=== PATIENT | male | born 1960 | race Caucasian/White ===

== ENCOUNTER 2017-07-14 08:27 | Observation (INO) ==
[2017-07-14] MEDS ORDERED: Ondansetron 4 MG/2 ML VIAL IVP ONE (08:33)
--- NOTE | 2017-07-14 08:34 | Emergency Department Note ---
Disposition Clinical Impression: Gastroenteritis, Atypical chest pain Disposition: Admitted As Inpatient Condition: Fair Referrals: Armin Patterson DO [Primary Care Provider] - Forms: ED Satisfaction Letter Nausea/Vomiting/Diarrhea HPI - General Chief complaint: ED Nausea/Vomiting/Diarrhea Stated complaint: vomiting, chest pain Time Seen by Provider: 07/14/17 08:30 Source: patient, EMS Mode of arrival: EMS Limitations: no limitations Nursing Notes Reviewed: Yes Vital Signs Reviewed: Yes - History of Present Illness HPI Narrative: Patient presents indicating he has been feeling ill for about 5 days. An onset on Tuesday of nausea and vomiting to the point of mainly dry heaving. The police he has had at least 12 episodes of vomiting or dry heaving since discharge from this emergency department yesterday. He relates he is still having abdominal cramping without other localized pain. He has had 3-4 episodes of diarrhea. He states that he has not been passing blood or mucus in emesis or stool and that his stool this chest watery and clear. He has had some left anterior chest pain since yesterday evening that is worse with motion or vomiting. He has a feeling of fevers and chills but has not checked his temperature. He reports some cough and shortness of breath. He denies any ill exposures, concern foodborne illness or recent travel. He is feeling weak and dizzy this morning with persistent nausea and he has been transported back in for reevaluation by EMS. EMS did document an Accu-Chek in the mid 300s and noted that he does have his insulin pump on. They did transport an EKG and 8: 07 AM that demonstrates a sinus rhythm with a rate of 110, axis of -7, MT interval of 158 and a QT/QTc is 318/405. He has poor R-wave progression and inferior Q waves. He has baseline wander without definite ST or T wave changes for ischemia or infarction. This is on my interpretation. The patient was evaluated yesterday with extensive lab work, EKG and CT abdomen. He responded well to fluids and antiemetics and was ambulatory and drinking in the department. A care plan was correlated with the patient and his family. They did desire discharge but with continued symptoms he was unable to stay home. Pt Subjective Complaint: nausea, vomiting, diarrhea, other (Left anterior chest pain) Onset (ago): day(s) (5) Description of Diarrhea: water Associated Abdominal Pain: Yes If pain, Location of pain: diffuse Severity: moderate Quality: cramping Consistency: intermittent Improves with: nothing Worsens with: eating Associated symptoms: Reports: chest pain, cough, fever/chills, loss of appetite , malaise, nausea/vomiting, shortness of breath, weakness. Denies: myalgias, diaphoresis, headaches, rash, dysuria - Related Data Home Medications Medication Instructions Recorded Confirmed Calcitriol [Rocaltrol] 0.5 mcg PO HS 11/25/14 07/14/17 Gabapentin [Gralise] 600 mg PO HS 11/25/14 07/14/17 Loratadine [Claritin] 10 mg PO DAILY 11/25/14 07/14/17 Nitroglycerin [Nitrostat] 0.4 mg SL Q5-6MIN PRN 11/25/14 07/14/17 Ranolazine [Ranexa] 1,000 mg PO BID 11/25/14 07/14/17 Aspirin 81 mg PO DAILY 09/20/15 07/14/17 Carbidopa/Levodopa 25/100 [Sinemet 1 tab PO QID 09/20/15 07/14/17 25/100] Fluticasone Propionate Nasal 50 mcg NS HS 09/20/15 07/14/17 [Flonase] Rosuvastatin [Crestor] 40 mg PO DAILY 09/20/15 07/14/17 Sertraline [Zoloft] 50 mg PO HS 09/20/15 07/14/17 Insulin Glargine,Hum.rec.anlog 0 unit SQ AD PRN 01/22/16 07/14/17 [Lantus Solostar] Metoprolol [Lopressor] 100 mg PO HS 01/22/16 07/14/17 Ondansetron HCl [Zofran] 4 mg PO Q6H PRN 01/22/16 07/14/17 Pantoprazole Sodium [Protonix] 40 mg PO BID 01/22/16 07/14/17 amLODIPine [Norvasc] 5 mg PO DAILY 01/22/16 07/14/17 Ergocalciferol (VITAMIN D2) 400 unit PO DAILY 10/01/16 07/14/17 [Vitamin D] Subcutaneous Insulin Pump [T:Slim] 1 each MC DAILY PRN 10/01/16 07/14/17 Montelukast [Singulair] 10 mg PO DAILY 02/02/17 07/14/17 Insulin LISPRO [HumaLOG] 0 units IJ DAILY PRN 05/10/17 07/14/17 Isosorbide MONOnitrate (24 HR) 30 mg PO DAILY 05/10/17 07/14/17 [Imdur] Levothyroxine Sodium [Levo-T] 200 mcg PO 0630 05/10/17 07/14/17 Lisinopril [Zestril] 40 mg PO BID 05/10/17 07/14/17 Previous Rx's Medication Instructions Recorded Clopidogrel [Plavix] 75 mg PO DAILY #30 tablet 10/02/16 Furosemide [Lasix] 40 mg PO DAILY #6 tab 02/06/17 Dicyclomine [Bentyl] 10 mg PO QID PRN #20 capsule 07/13/17 Ondansetron ODT [Zofran ODT] 4 mg SL Q6HR PRN #20 tab.rapdis 07/13/17 Allergies Allergy/AdvReac Type Severity Reaction Status Date / Time Oxycodone [From Percocet] Allergy Itching/JERI Verified 07/14/17 08:30 H All systems ED: reviewed and negative except as stated. Past Medical History - Past Medical History Attestation: Yes The following information was validated with the patient. Source: patient, old records reviewed, nursing notes reviewed Medical history: Reports: coronary artery disease, diabetes, GERD, hyperlipidemia, hypertension, myocardial infarction, renal disease (Chronic renal failure, no dialysis), thyroid disease, other Surgical history: Reports: angioplasty/stent, cholecystectomy, other (AV shunt) Psychiatric history: Reports: depression - Social History Smoking Status: Never smoker Smokeless Tobacco Status: No Alcohol use: Reports: none Drug use: Reports: none Physical Exam - General Limitations: no limitations General appearance: alert, anxious - Head Head exam: atraumatic, normocephalic, normal inspection - Eye Eye exam: Present: normal appearance, PERRL, EOMI. Absent: scleral icterus, conjunctival injection - ENT ENT exam: normal exam, normal oropharynx, mucous membranes moist - Neck Neck exam: Present: normal inspection, full ROM, trachea midline - Chest Chest inspection: Present: normal inspection, symmetric chest wall rise - Respiratory Respiratory exam: Present: normal lung sounds bilaterally. Absent: respiratory distress, wheezes, prolonged expiratory phase - Cardiovascular Cardiovascular exam: Present: regular rate, normal rhythm, tachycardia, normal heart sounds - Abdominal Exam Abdominal exam: Present: soft, Non-Tender, normal bowel sounds. Absent: tenderness, distention, guarding, rebound, rigidity, pulsatile mass, hernia Abdominal tenderness: Absent: RLQ - Extremities Exam Extremities exam: Present: normal inspection, full ROM, normal capillary refill. Absent: tenderness, pedal edema, calf tenderness - Expanded Lower Extremity Exam Neurovascular/Tendon exam: Present: normal capillary refill. Absent: motor deficit, sensory deficit, tendon deficit Gait: not tested/not observed - Neurological Exam Neurological exam: Present: alert, oriented X3 - Psychiatric Psychiatric exam: Present: normal affect, anxious - Skin Skin exam: Present: warm, dry, intact, normal color. Absent: rash, diaphoresis , pallor Course Course Narrative: 1055: Care is discussed with Dr. Coe. He is agreeable with observation of this patient for continued hydration, antiemetics and repeat troponin. Verbal orders have been obtained for his observation period Vital Signs Temperature 98.6 F 07/14/17 08:31 Pulse Rate 94 07/14/17 08:31 Respiratory Rate 20 07/14/17 08:31 Blood Pressure 166/84 07/14/17 08:31 O2 Sat by Pulse Oximetry 100 07/14/17 08:31 Temperature 98.6 F 07/14/17 08:31 Pulse Rate 93 07/14/17 10:39 Respiratory Rate 16 07/14/17 10:39 Blood Pressure 139/95 07/14/17 10:39 O2 Sat by Pulse Oximetry 99 07/14/17 10:39 Oxygen Delivery Oxygen Delivery Room Air Nausea/Vomiting/Diarrhea - Differential Diagnosis Likely: gastroenteritis, dehydration - Medical Records Medical records reviewed: Yes I reviewed the patient's medical records. CT/CT abd pelvis wo no iv no oral IMPRESSION: 1. No bowel obstruction. 2. No acute infective or inflammatory process. 3. Status post cholecystectomy. D/ / Ted Castillo MD / Ted Castillo MD - Lab Data Lab results reviewed: Yes I reviewed the patient's lab results. Result diagrams: 07/14/17 09:25 Lab Results 03/07/14/17 07/14/17 Range/Units 09:25 09:25 09:41 Sample Site R Brach ABG pH 7.42 (7.32-7.45) pH Units ABG pCO2 22 L (35-45) mmHg ABG pO2 139 H (85-104) mmHg ABG HCO3 14 L (21-27) mEq/L ABG Total CO2 15 L (20-26) mEq/L ABG O2 Saturation 99 H (95-98) % ABG Base Excess -8 L (-2 to 3) mEq/L Javi Test Positive Inspired O2 21.0 (1-15=lpm [id number]=%) Sodium 138 (136-145) mEq/L Potassium 4.8 (3.5-5.1) mEq/L Chloride 107 (98-107) mEq/L Carbon Dioxide 16 L (23-29) mEq/L BUN 64 H (6-20) mg/dL Creatinine 4.79 H (0.70-1.30) mg/dL Est GFR ( Amer) 15 L (> 60) Est GFR (Non-Af Amer) 13 L (> 60) BUN/Creatinine Ratio 13 (6-26) Glucose 273 H (70-105) mg/dL Calculated Osmolality 314 H (280-300) Calcium 9.6 (8.6-10.3) mg/dL Troponin I 0.04 H* (< 0.04) ng/mL Beta-Hydroxybutyric Acd > 2.00 H (0.02-0.27) mmol/L - Radiology Data Radiology results reviewed: Yes I reviewed the patient's radiology results. Single view chest x-ray is performed. This does not demonstrate evidence for infiltrate, effusion, pneumothorax, foreign body or heart failure. The cardiac silhouette is normal. I do not see abnormality to the osseous structures of the chest. This is on my interpretation. Impressions Chest X-Ray 07/14/17 08:38 IMPRESSION: No evidence of acute cardiopulmonary disease. D/ / Ulices Herrera MD / Ulices Herrera MD Interpreting Provider: Ulices Herrera MD - EKG Data EKG attestation: Yes I reviewed and interpreted this EKG. EKG shows normal: sinus rhythm, axis, intervals Q waves: III, aVF T wave inversions noted in: I, aVL QRS morphology: poor R-wave progression When compared to previous EKG there are: no significant changes (07/13/2017) Interpretation: no acute changes, nonspecific ST-T wave changes
[2017-07-14] MEDS ORDERED: 0.9 % Sodium Chloride 1,000 ML IVC SCH ×2 (08:45→12:18)
[2017-07-14 09:45] LABS: ABG Base Excess -8 mEq/L (-2 to 3); ABG HCO3 14 mEq/L (21-27); ABG Oxygen Saturation 99 % (95-98); ABG PCO2 22 mmHg (35-45); ABG PH 7.42 pH Units (7.32-7.45); ABG PO2 139 mmHg (85-104); ABG TCO2 15 mEq/L (20-26)
[2017-07-14 09:49] LABS: Calcium 9.6 mg/dL (8.6-10.3); Potassium 4.8 mEq/L (3.5-5.1)
[2017-07-14 10:21] LABS: Troponin I 0.04 ng/mL (< 0.04)
[2017-07-14] MEDS ORDERED: Insulin Regular, Human 100 UNIT/ML SQ ONE (10:23)
[2017-07-14] MEDS ORDERED: 0.9 % Sodium Chloride 500 ML IVC ONE (10:23)
[2017-07-14] MEDS ORDERED: GI Cocktail 40 ML EACH PO ONE (10:23)
[2017-07-14] MEDS ORDERED: Naloxone 0.4 MG/ML INJ IVP PRN (12:18)
[2017-07-14] MEDS ORDERED: D5% in Water 1,000 ML IVC PRN (12:18)
[2017-07-14] MEDS ORDERED: Nitroglycerin 0.4 MG TAB.SUBL SL PRN (12:18)
[2017-07-14] MEDS ORDERED: *HR* Dextrose 50 % in Water (Syg) 50 ML SYRINGE IVP PRN (12:18)
[2017-07-14] MEDS ORDERED: Dextrose Gel 15 GM PO PRN ×2 (12:18)
[2017-07-14] MEDS ORDERED: Insulin LISPRO 300 UNITS/3 ML VIAL SQ PRN (12:18)
[2017-07-14] MEDS: Insulin LISPRO 300 UNITS/3 ML VIAL SQ SCH ×2 (12:41→18:42)
[2017-07-14] MEDS: Ondansetron ODT 4 MG TAB.RAPDIS SL PRN ×2 (12:43→19:51)
[2017-07-14] MEDS: Carbidopa/Levodopa 25/100 TABLET PO SCH ×2 (14:06→18:42)
[2017-07-14] MEDS ORDERED: Pantoprazole 40 MG VIAL IVP ONE (14:10)
[2017-07-14] MEDS: *HR* Promethazine 25 MG/ML VIAL IVP PRN ×2 (14:28→20:40)
--- NOTE | 2017-07-14 16:59 | Internal Med History&Physical ---
Date of Encounter: 07/14/17 Time of Encounter: 16:20 Assessment and Plan (1) Gastroenteritis Current visit: Yes Status: Acute We will be given IV fluids and antiemetics when necessary. Further workup will be done as needed. (2) Chronic renal disease, stage 5, glomerular filtration rate (GFR) less than or equal to 15 mL/min/1.73 square meter Current visit: No Status: Chronic Will monitor renal indices as needed. (3) Anemia Current visit: No Status: Acute We will order anemia testing in a.m. Qualifiers: Anemia type: other cause Other causes of anemia: other cause, not classified Qualified Code(s): D64.89 - Other specified anemias (4) Hypothyroidism Current visit: No Status: Acute TSH was normal at 1.168 on 03/28/2017. Qualifiers: Hypothyroidism type: acquired Qualified Code(s): E03.9 - Hypothyroidism, unspecified (5) Hyperuricemia Current visit: Yes Status: Acute Uric acid level was 10.7 on 10/11/2016. We will recheck in a.m. Internal Medicine - H&P: HPI Chief complaint: Vomiting and diarrhea Admitted From: Emergency Dept Plans for Post Hospital Care: Home History of present illness: Mr. Hdz is a 57 year old male who returned to the hospital today after an ER visit yesterday complaining he had onset of vomiting and diarrhea on July 10. He was evaluated in emergency room again today and was felt to have acute gastroenteritis. He was admitted to [facility] floor for ongoing care needs. He denies any hematemesis, melena or hematochezia. He reports he has had 6-10 episodes of vomiting and diarrhea daily since the day of onset. He reports his mother had similar symptoms a few days ago but has improved. His GI history is pertinent for cholecystectomy approximately 2016. He denies disorders of his liver or exocrine pancreas otherwise. He has GERD. He reports he had a nuclear medicine gastric emptying study a few years ago and was told it was unremarkable. Past Med Surg Social Fam HX - Past Medical History Medical history: coronary artery disease, diabetes, GERD, hyperlipidemia, hypertension, myocardial infarction, renal disease, thyroid disease, other Psychiatric history: depression - Past Surgical History Surgical History: angioplasty/stent, cholecystectomy, other - Social History Smoking Status: Never smoker Smokeless Tobacco Status: No Alcohol use: none Drug use: none - Family History Mother Living Status: Still Living Hx Family Cardiac Disorders: Yes (htn) Father Living Status: Brother Living Status: Hx Family Neurologic Disorders: Yes (stroke) Internal Medicine - H&P: Meds Calcitriol [Rocaltrol] 0.5 mcg PO HS 11/25/14 [History] Gabapentin [Gralise] 600 mg PO HS 11/25/14 [History] Loratadine [Claritin] 10 mg PO DAILY 11/25/14 [History] Nitroglycerin [Nitrostat] 0.4 mg SL Q5-6MIN PRN 11/25/14 [History] Ranolazine [Ranexa] 1,000 mg PO BID 11/25/14 [History] Aspirin 81 mg PO DAILY 09/20/15 [History] Carbidopa/Levodopa 25/100 [Sinemet 25/100] 1 tab PO QID 09/20/15 [History] Fluticasone Propionate Nasal [Flonase] 50 mcg NS HS 09/20/15 [History] Rosuvastatin [Crestor] 40 mg PO DAILY 09/20/15 [History] Sertraline [Zoloft] 50 mg PO HS 09/20/15 [History] Insulin Glargine,Hum.rec.anlog [Lantus Solostar] 0 unit SQ AD PRN 01/22/16 [ History] Metoprolol [Lopressor] 100 mg PO HS 01/22/16 [History] Ondansetron HCl [Zofran] 4 mg PO Q6H PRN 01/22/16 [History] Pantoprazole Sodium [Protonix] 40 mg PO BID 01/22/16 [History] amLODIPine [Norvasc] 5 mg PO DAILY 01/22/16 [History] Ergocalciferol (VITAMIN D2) [Vitamin D] 400 unit PO DAILY 10/01/16 [History] Subcutaneous Insulin Pump [T:Slim] 1 each MC DAILY PRN 10/01/16 [History] Clopidogrel [Plavix] 75 mg PO DAILY #30 tablet 10/02/16 [Rx] Montelukast [Singulair] 10 mg PO DAILY 02/02/17 [History] Furosemide [Lasix] 40 mg PO DAILY #6 tab 02/06/17 [Rx] Insulin LISPRO [HumaLOG] 0 units IJ DAILY PRN 05/10/17 [History] Isosorbide MONOnitrate (24 HR) [Imdur] 30 mg PO DAILY 05/10/17 [History] Levothyroxine Sodium [Levo-T] 200 mcg PO 0630 05/10/17 [History] Lisinopril [Zestril] 40 mg PO BID 05/10/17 [History] Dicyclomine [Bentyl] 10 mg PO QID PRN #20 capsule 07/13/17 [Rx] Ondansetron ODT [Zofran ODT] 4 mg SL Q6HR PRN #20 tab.rapdis 07/13/17 [Rx] 3 Allergy/AdvReac Type Severity Reaction Status Date / Time Oxycodone [From Percocet] Allergy Itching/JERI Verified 07/14/17 08:30 H All Systems PM: A 10-system review of systems was performed and is negative for pertinent findings except as documented above in the HPI. Review of systems: Gen.: His weight has increased from 126.006 kg November 2013 to present weight of 129.274 kg. Cardiovascular: He has history of hypertension and known ASHD status post [place] 1995 and PTCA with 2 stents in [address] [facility]. He had a nuclear medicine EST which showed EKG and perfusion imaging negative for ischemia. He had an echocardiogram 09/30/2016 which showed LVEF of 55% with moderate LV diastolic dysfunction reported. The E/A ratio was 1.4. There was reported LAE without measurements recorded. There was no significant valvular dysfunction and no evidence of pulmonary hypertension. There was increased left ventricular end diastolic diameter at 6.40 cm. The interventricular septum and posterior wall thickness measurements were 0.9 and 1.0 cm respectively. A limited echocardiogram was done 02/03/2017 without new significant findings. There is no history of DVT or pulmonary embolus. Respiratory: He is a lifelong nonsmoker has no known chronic lung disease. He has OTIS and wears BiPAP at bedtime. GI: As per history of present illness : He has chronic kidney disease stage 5 and had AV fistula recently placed in his left forearm as preparation for dialysis. 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 He denies other kidney bladder prostate disorders Neurologic: He has been diagnosed with Parkinson's disease but denies large distribution strokes or seizures. Endocrine: He was diagnosed with DM 2 in 1986. He has DPN, hypothyroidism, and hyperlipidemia. Hematology/oncology: He denies blood disorders or cancers. He does have anemia. Psychiatric: He has anxiety and depression but denies other mental health issues [place] skeletal: He has DJD and vitamin D deficiency but no known gout or osteoporosis. - Constitutional Vitals: Temp Pulse Resp BP Pulse Ox 97.5 F L 101 18 134/93 97 07/14/17 12:18 07/14/17 12:18 07/14/17 12:18 07/14/17 12:18 07/14/17 12:18 Exam: Gen.: He is a well-developed well-nourished male resting comfortably in bed who appears in no severe distress at present time HEENT: Head is atraumatic and normocephalic. Eyes: EOMI. There is no scleral icterus. Mouth: Mucosa is moist. Neck: Supple and nontender. There is no thyromegaly or adenopathy noted. Heart: Regular without murmurs gallops or ectopics Lungs: No wheezes or crackles are heard. Abdomen: Bowel sounds are diminished. The abdomen is minimally tender to palpation in the epigastric area. No masses or guarding are noted. Extremities: There is no cyanosis edema or clubbing noted. Dorsalis pedis and posttibial pulses are trace palpable bilaterally. His feet are warm to touch. He has an AV fistula in his left forearm. Neurologic: Mental status: He is talkative and a good historian. Cranial nerves : Smile is symmetric. Forehead wrinkles bilaterally. Tongue protrudes midline. EOMI. Motor: There is no pronator drift. Cerebellar: Finger to nose is intact bilaterally. Skin: Warm and dry Internal Med - H&P Results - Labs CBC & Chem 7: 07/14/17 09:25 Labs: Cardiac Enzymes 07/14/17 Range/Units 14:53 Troponin I 0.04 H* (< 0.04) ng/mL
[2017-07-14] MEDS ORDERED: *HR* HYDROcodone/Acet 5/325 mg TABLET PO PRN (18:40)
[2017-07-14] MEDS ORDERED: Morphine Oral CONC 5 MG/0.25 ML ORAL.SYG SL PRN (19:40)
--- NOTE | 2017-07-14 23:08 | Electrocardiograph Report ---
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
[2017-07-15] MEDS: Fluticasone Propionate Nasal 50 MCG/SPRAY BOTTLE NS SCH ×2 (00:01→20:52)
[2017-07-15] MEDS: Gabapentin 300 MG CAPSULE PO SCH ×2 (00:01→20:53)
[2017-07-15] MEDS: Lisinopril 20 MG TABLET PO SCH ×3 (00:02→20:52)
[2017-07-15] MEDS: Ranolazine 500 MG TAB.ER.12H PO SCH ×3 (00:02→20:52)
[2017-07-15] MEDS: Carbidopa/Levodopa 25/100 TABLET PO SCH ×5 (00:02→20:52)
[2017-07-15] MEDS: *HR* Promethazine 25 MG/ML VIAL IVP PRN ×3 (01:04→17:11)
[2017-07-15] MEDS: Insulin LISPRO 300 UNITS/3 ML VIAL SQ SCH ×3 (07:56→17:12)
[2017-07-15 08:04] LABS: Calcium 8.8 mg/dL (8.6-10.3); Uric Acid 12.4 mg/dL (2.3-7.6)
[2017-07-15 08:58] LABS: Basophils % 0.4 %; Eosinophils # 0.2 K/mcL (0.0-0.6); Eosinophils % 3.5 %; Hematocrit 38.5 % (37.5-50.1); Hemoglobin 12.3 g/dL (12.9-16.9); Immature Granulocytes % 1.3 % (0-4); Lymphocytes # 2.6 K/mcL (0.6-4.6); Lymphocytes % 38.1 %; Mean Corpuscular HGB Conc 31.9 g/dL (31.6-35.5); Mean Corpuscular Volume 90.8 fL (83.0-100.0); Mean Platelet Volume 10.2 fL (9.4-12.4); Monocytes # 0.6 K/mcL (0.0-1.3); Monocytes % 7.9 %; Neutrophils # 3.4 K/mcL (1.6-8.9); Platelet Count 255 K/mcL (140-400); Red Blood Count 4.24 M/mcL (4.19-5.50); Red Cell Distribution Width 14.6 % (11.5-14.5); Segmented Neutrophils % 48.8 %
[2017-07-15] MEDS ORDERED: Loratadine 10 MG TABLET PO SCH (09:00)
[2017-07-15 09:28] LABS: Folate 11.3 ng/mL (3.0-16.0)
--- NOTE | 2017-07-15 10:00 | Internal Med Progress Note ---
Date of Encounter: 07/15/17 Time of Encounter: 09:50 - Assessment and plan (1) Gastroenteritis Current Visit: Yes Status: Acute Assessment and plan: July 15. Improving. Continue present regimen. Anticipate discharge home tomorrow if stable. (2) Chronic renal disease, stage 5, glomerular filtration rate (GFR) less than or equal to 15 mL/min/1.73 square meter Current Visit: No Status: Chronic Assessment and plan: July 15. Renal indices slightly improved. Continue present regimen. (3) Anemia Current Visit: No Status: Acute Assessment and plan: July 15. Anemia testing results reviewed. No factor deficiency noted. Suspect secondary to chronic kidney disease. Qualifiers: Anemia type: other cause Other causes of anemia: other cause, not classified Qualified Code(s): D64.89 - Other specified anemias (4) Hypothyroidism Current Visit: No Status: Acute Assessment and plan: July 15. Continue Synthroid Qualifiers: Hypothyroidism type: acquired Qualified Code(s): E03.9 - Hypothyroidism, unspecified (5) Hyperuricemia Current Visit: Yes Status: Acute Assessment and plan: July 15. Uric acid level significantly elevated at 12.4. We will start low- dose allopurinol - Subjective Interval history: July 15. He has no new complaints and feels better. He reports his vomiting and diarrhea have lessened - Constitutional Vitals: Temp Pulse Resp BP Pulse Ox 98.1 F 104 20 146/79 99 07/15/17 06:58 07/15/17 06:58 07/15/17 06:58 07/15/17 06:58 07/15/17 06:58 Exam: He is resting comfortably in bed and appears in no acute distress. His affect is bright and cheerful. I reviewed his medications and lab results. Internal Medicine: Result - Labs CBC & Chem 7: 07/15/17 07:00 07/15/17 07:00 Labs: Short CBC 07/15/17 Range/Units 07:00 WBC 6.9 (4.3-11.1) K/mcL Hgb 12.3 L (12.9-16.9) g/dL Hct 38.5 (37.5-50.1) % Plt Count 255 (140-400) K/mcL Neutrophils # 3.4 (1.6-8.9) K/mcL BMP 07/15/17 07:00 Sodium 139 Potassium 4.0 Chloride 108 H Carbon Dioxide 18 L BUN 55 H Creatinine 4.37 H Glucose 112 H Calcium 8.8 Cardiac Enzymes 07/14/17 Range/Units 14:53 Troponin I 0.04 H* (< 0.04) ng/mL - ABG Interpretation ABG results: ABG ABG pH 7.42 pH Units (7.32-7.45) 07/14/17 09:41 ABG pCO2 22 mmHg (35-45) L 07/14/17 09:41 ABG pO2 139 mmHg (85-104) H 07/14/17 09:41 ABG O2 Saturation 99 % (95-98) H 07/14/17 09:41 Consult Discharge Plan - Plan Referrals: Armin Patterson DO [Primary Care Provider] - 1 week
[2017-07-15] MEDS: amLODIPine 5 MG TABLET PO SCH (10:29)
[2017-07-15] MEDS: Isosorbide MONOnitrate (24 HR) 30 MG TAB.ER.24H PO SCH (10:29)
[2017-07-15] MEDS: Aspirin 81 MG TAB.CHEW PO SCH (10:30)
[2017-07-15] MEDS: Furosemide 40 MG TABLET PO SCH (10:30)
[2017-07-15] MEDS ORDERED: Acetaminophen 325 MG TABLET PO PRN (17:41)
[2017-07-15] MEDS: Ondansetron ODT 4 MG TAB.RAPDIS SL PRN (23:40)
[2017-07-16] MEDS: Ondansetron ODT 4 MG TAB.RAPDIS SL PRN ×2 (05:43→14:01)
[2017-07-16 05:49] LABS: Calcium 8.3 mg/dL (8.6-10.3); Potassium 4.1 mEq/L (3.5-5.1)
[2017-07-16] MEDS: Insulin LISPRO 300 UNITS/3 ML VIAL SQ SCH ×2 (07:50→12:04)
[2017-07-16] MEDS: Aspirin 81 MG TAB.CHEW PO SCH (08:59)
[2017-07-16 10:36] VITALS: BP 158/79
[2017-07-16] MEDS: Carbidopa/Levodopa 25/100 TABLET PO SCH ×2 (11:03→13:57)
[2017-07-16] MEDS: Ranolazine 500 MG TAB.ER.12H PO SCH (11:07)
[2017-07-16] MEDS: Isosorbide MONOnitrate (24 HR) 30 MG TAB.ER.24H PO SCH (11:08)
[2017-07-16] MEDS: Lisinopril 20 MG TABLET PO SCH (11:09)
[2017-07-16] MEDS: amLODIPine 5 MG TABLET PO SCH (11:09)
[2017-07-16] MEDS: Furosemide 40 MG TABLET PO SCH (11:09)
--- NOTE | 2017-07-16 14:09 | Discharge Summary ---
Date of Encounter: 07/16/17 Time of Encounter: 13:55 - Discharge Diagnosis (1) Gastroenteritis Priority: Primary Status: Acute (2) Chronic renal disease, stage 5, glomerular filtration rate (GFR) less than or equal to 15 mL/min/1.73 square meter Priority: Secondary Status: Chronic (3) Anemia Priority: Secondary Status: Acute Qualifiers: Anemia type: other cause Other causes of anemia: other cause, not classified Qualified Code(s): D64.89 - Other specified anemias (4) Hypothyroidism Priority: Secondary Status: Chronic Qualifiers: Hypothyroidism type: acquired Qualified Code(s): E03.9 - Hypothyroidism, unspecified (5) Hyperuricemia Priority: Secondary Status: Chronic Hospital course: Mr. Hdz is a 57 year old male who returned to the hospital after an ER visit 07/13/2017 complaining he had onset of vomiting and diarrhea on July 10. He was evaluated in emergency room again today and was felt to have acute gastroenteritis. He was admitted to [facility] floor for ongoing care needs. Initial orders were written by the emergency room physician. I saw him on July 14 and performed a history and physical. He was given IV fluids and antiemetics when necessary. He had gradual lessening of his vomiting and diarrhea. He was able to tolerate satisfactory quantity of oral food and fluid. He will continue to advance diet as tolerated home. IV fluids were given and creatinine improved slightly to 4.43 by day of discharge with estimated GFR 14. He will follow with his home service technician for ongoing care needs. Uric acid level returned significantly elevated at 12.4. He was started on allopurinol 100 mg daily. His PCP can monitor this. On July 16 he felt stable for discharge home. He will follow with his PCP Dr. Patterson within 1 week. - Time Spent with Patient Total time spent providing and/or coordinating discharge services: - Discharge Medications Prescriptions: Allopurinol [Zyloprim 100 MG] 100 mg PO DAILY #30 tablet Home Medications: Calcitriol [Rocaltrol] 0.5 mcg PO HS 11/25/14 [History] Gabapentin [Gralise] 600 mg PO HS 11/25/14 [History] Loratadine [Claritin] 10 mg PO DAILY 11/25/14 [History] Nitroglycerin [Nitrostat] 0.4 mg SL Q5-6MIN PRN 11/25/14 [History] Ranolazine [Ranexa] 1,000 mg PO BID 11/25/14 [History] Aspirin 81 mg PO DAILY 09/20/15 [History] Carbidopa/Levodopa 25/100 [Sinemet 25/100] 1 tab PO QID 09/20/15 [History] Fluticasone Propionate Nasal [Flonase] 50 mcg NS HS 09/20/15 [History] Rosuvastatin [Crestor] 40 mg PO DAILY 09/20/15 [History] Sertraline [Zoloft] 50 mg PO HS 09/20/15 [History] Insulin Glargine,Hum.rec.anlog [Lantus Solostar] 0 unit SQ AD PRN 01/22/16 [ History] Metoprolol [Lopressor] 100 mg PO HS 01/22/16 [History] Ondansetron HCl [Zofran] 4 mg PO Q6H PRN 01/22/16 [History] Pantoprazole Sodium [Protonix] 40 mg PO BID 01/22/16 [History] amLODIPine [Norvasc] 5 mg PO DAILY 01/22/16 [History] Ergocalciferol (VITAMIN D2) [Vitamin D] 400 unit PO DAILY 10/01/16 [History] Subcutaneous Insulin Pump [T:Slim] 1 each MC DAILY PRN 10/01/16 [History] Clopidogrel [Plavix] 75 mg PO DAILY #30 tablet 10/02/16 [Rx] Montelukast [Singulair] 10 mg PO DAILY 02/02/17 [History] Furosemide [Lasix] 40 mg PO DAILY #6 tab 02/06/17 [Rx] Insulin LISPRO [HumaLOG] 0 units IJ DAILY PRN 05/10/17 [History] Isosorbide MONOnitrate (24 HR) [Imdur] 30 mg PO DAILY 05/10/17 [History] Levothyroxine Sodium [Levo-T] 200 mcg PO 0630 05/10/17 [History] Lisinopril [Zestril] 40 mg PO BID 05/10/17 [History] Dicyclomine [Bentyl] 10 mg PO QID PRN #20 capsule 07/13/17 [Rx] Ondansetron ODT [Zofran ODT] 4 mg SL Q6HR PRN #20 tab.rapdis 07/13/17 [Rx] Allopurinol [Zyloprim 100 MG] 100 mg PO DAILY #30 tablet 07/16/17 [Rx] Allergies/Adverse Reactions: 3 Allergy/AdvReac Type Severity Reaction Status Date / Time Oxycodone [From Percocet] Allergy Itching/JERI Verified 07/14/17 08:30 H Date of admission: 07/14/17 11:27 Primary care physician: Armin Patterson DO Consults: 07/14/17 12:32 Consult to Nutrition [CONS] Routine Comment: Consulting Provider: NUTRITION Reason for Dietary Consult: MST Score - Constitutional Vitals: Temp Pulse Resp BP Pulse Ox 98.2 F 66 18 158/79 97 07/16/17 10:36 07/16/17 10:36 07/16/17 10:36 07/16/17 10:36 07/16/17 10:36 - Patient Status Disposition: Home, Self-Care Condition: Fair Overall status at discharge: patient is progressing back to baseline - Discharge Instructions Follow Up With: Armin Patterson DO [Primary Care Provider] - 1 week - Diet and Activity Activity: resume usual activities as tolerated Diet: advance to your usual diet - VTE Documentation of Mechanical Device: Graduated compression elastic hosiery
== END 2017-07-16 15:24 | disposition home or self-care (01) ==
LOC: INPPIK 08:27 → EMEROOPIK 08:27 → INPPIK 11:43
PROVIDERS: ADMIT Internal Medicine; ATTEND Internal Medicine

== ENCOUNTER 2018-01-06 14:14 | Observation (INO) ==
--- NOTE | 2018-01-06 14:55 | Emergency Department Note ---
Disposition Clinical Impression: Acute renal failure Qualifiers: Acute renal failure type: unspecified Qualified Code(s): N17.9 - Acute kidney failure, unspecified Disposition: Admitted As Inpatient Condition: Undetermined Time of Disposition: 16:29 (Dr Mcdaniels accepted him) General Adult HPI - General Chief complaint: ED Abdominal Pain Stated complaint: N/V abdominal pain Source: EMS Limitations: no limitations Nursing Notes Reviewed: Yes Vital Signs Reviewed: Yes - History of Present Illness HPI Narrative: Patient is a pleasant 57-year-old male with past medical history significant for HTN, DM, Dyslipidemia and COPD who is presenting to [facility] with a chief complaint off worsening of his renal function. He complains of generalized fatigue and malaise and vague abdominal pain. He was seen yesterday for the same symptoms but today nursing staff and his reports worsening of his symptoms. He seems to be more lethargic. He has a fistula supposed to start renal dialysis. Patient complains off generalized abdominal pain as well as nausea. A CT scan yesterday was negative. His creatinine yesterday was 5.7 and today is 5.4. Patient denies any fever, chills or night sweats. Pt also denies any eye pain or visual disturbances. There is no sore throat, nasal drainages or facial congestion. There is no chest pain, palpitations or racing heart. Pt also denies any shortness of breath, cough or chest congestion. There is no vomiting or diarrhea. There is no urgency, frequency or dysuria. There is no muskulo-skeletal pain, arthralgia or back pain. Patient also denies any rash, edema or pruritus. There is no neurological manifestations, no headache, no vertigo. The patient also denies any anxiety, depression, hallucinations and has no homicidal or suicidal ideations. There is no polyuria, polydipsia or recent weight change. There is no easy bruising or bleeding. Review of other systems is otherwise negative except above. Location: abdomen Radiation: non-radiation Pain Severity: moderate Pain Scale: 8 - Related Data Home Medications Medication Instructions Recorded Confirmed Ranolazine [Ranexa] 1,000 mg PO BID 11/25/14 01/05/18 Aspirin 81 mg PO DAILY 09/20/15 01/05/18 Carbidopa/Levodopa 25/100 [Sinemet 1 tab PO QID 09/20/15 01/05/18 25/100] Fluticasone Propionate Nasal 50 mcg NS HS 09/20/15 01/05/18 [Flonase] Rosuvastatin [Crestor] 40 mg PO DAILY 09/20/15 01/05/18 Sertraline [Zoloft] 50 mg PO HS 09/20/15 01/05/18 Metoprolol [Lopressor] 100 mg PO BID 01/22/16 01/05/18 Subcutaneous Insulin Pump [T:Slim] 1 each MC DAILY PRN 10/01/16 01/05/18 Montelukast [Singulair] 10 mg PO DAILY 02/02/17 01/05/18 Isosorbide MONOnitrate (24 HR) 30 mg PO DAILY 05/10/17 01/05/18 [Imdur] Levothyroxine Sodium [Levo-T] [place] [address]/10/17 01/05/18 Calcitriol 0.5 mcg PO DAILY 11/24/17 01/05/18 Cholecalciferol (D-3) [Vitamin D] 2,000 unit PO DAILY 11/24/17 01/05/18 Gabapentin [Neurontin] 600 mg PO HS 11/24/17 01/05/18 Loratadine [Allergy Relief] 10 mg PO DAILY 11/24/17 01/05/18 Nitroglycerin [Nitrostat] 0.4 mg SL Q5MIN PRN MDD [id number] 11/24/17 01/05/18 CALL 911 Insulin Glargine,Hum.rec.anlog 50 unit SQ AD PRN 11/25/17 01/05/18 [Lantus Solostar] Ondansetron ODT [Zofran ODT] 8 mg SL Q6HR PRN 11/25/17 01/05/18 Previous Rx's Medication Instructions Recorded Clopidogrel [Plavix] 75 mg PO DAILY #30 tablet 10/02/16 Lisinopril [Zestril] 40 mg PO DAILY #30 tablet 11/27/17 amLODIPine [Norvasc] 10 mg PO DAILY #60 tablet 11/27/17 Ondansetron ODT [Zofran ODT] 4 mg SL Q6HR PRN #8 tab.rapdis 01/05/18 Promethazine [Phenergan] 25 mg PO Q6HR PRN #16 tablet 01/05/18 Allergies Allergy/AdvReac Type Severity Reaction Status Date / Time Oxycodone [From Percocet] Allergy Itching/JERI Verified 07/14/17 08:30 H All systems ED: reviewed and negative except as stated. Review of Systems: As Per HPI Constitutional: Reports: weakness. Denies: fever, chills, weight change Eyes: Denies: eye pain, eye discharge ENT ED: Denies: ear pain, throat pain Cardiovascular: Denies: chest pain, palpitations Respiratory: Denies: cough, dyspnea Gastrointestinal: Reports: abdominal pain, nausea. Denies: vomiting, diarrhea Past Medical History - Past Medical History Medical history: Reports: coronary artery disease, diabetes, GERD, hyperlipidemia, hypertension, myocardial infarction, renal disease, thyroid disease, other Surgical history: Reports: angioplasty/stent, cholecystectomy, other Psychiatric history: Reports: depression - Social History Smoking Status: Never smoker Smokeless Tobacco Status: No Alcohol use: Reports: none Drug use: Reports: none Physical Exam - General Limitations: no limitations General appearance: alert, lethargic - Head Head exam: atraumatic, normocephalic, normal inspection - Eye Eye exam: Present: normal appearance, PERRL, EOMI - Expanded Eye Exam Pupils: Left: reactive - ENT ENT exam: normal exam, normal oropharynx, mucous membranes moist - Expanded ENT Exam External ear exam: Present: normal external inspection Mouth exam: Present: normal external inspection Teeth exam: Present: normal inspection Throat exam: Present: normal inspection - Neck Neck exam: Present: normal inspection, full ROM, trachea midline - Chest Chest inspection: Present: normal inspection, symmetric chest wall rise - Respiratory Respiratory exam: Present: normal lung sounds bilaterally - Cardiovascular Cardiovascular exam: Present: regular rate, normal rhythm, normal heart sounds - Abdominal Exam Abdominal exam: Present: soft, Non-Tender. Absent: tenderness, distention, guarding, rebound, rigidity - Extremities Exam Extremities exam: Present: normal inspection, full ROM. Absent: tenderness, pedal edema - Expanded Upper Extremity Exam Shoulder exam: Present: normal inspection, full ROM Arm exam: Present: normal inspection, full ROM Elbow exam: Present: normal inspection, full ROM Forearm/Wrist exam: Present: normal inspection, full ROM Hand exam: Present: normal inspection, full ROM Vascular exam: Normal: capillary refill, radial pulse - Expanded Lower Extremity Exam Hip/Pelvis exam: Present: normal inspection, full ROM Upper leg exam: Present: normal inspection, full ROM Knee exam: Present: normal inspection, full ROM Lower leg exam: Present: normal inspection, full ROM Ankle exam: Present: normal inspection, full ROM Foot/toe exam: Present: normal inspection, full ROM Neurovascular/Tendon exam: Absent: motor deficit, sensory deficit, tendon deficit - Back Exam Back exam: Present: normal inspection, full ROM. Absent: tenderness - Neurological Exam Neurological exam: Present: alert, oriented X3 - Expanded Neurological Exam Patient oriented to: Present: person, place, time Coma Scale Eye Opening: Spontaneous Coma Scale Motor Response: Obeys Commands Coma Scale Verbal Response: Oriented Coma Scale Total: 15 - Psychiatric Psychiatric exam: Present: normal affect, normal mood - Skin Skin exam: Present: warm, dry, intact, normal color Course Vital Signs Temperature 98.4 F 01/06/18 14:17 Pulse Rate 80 01/06/18 14:17 Respiratory Rate 18 01/06/18 14:17 Blood Pressure 141/86 01/06/18 14:17 O2 Sat by Pulse Oximetry 98 01/06/18 14:17 Temperature 98.2 F 01/06/18 15:31 Pulse Rate 79 01/06/18 16:47 Respiratory Rate 18 01/06/18 16:47 Blood Pressure 152/82 01/06/18 16:47 O2 Sat by Pulse Oximetry 96 01/06/18 16:47 Oxygen Delivery Oxygen Delivery Room Air Medical Decision Making - Medical Records Medical records reviewed: Yes I reviewed the patient's medical records. - Lab Data Lab results reviewed: Yes I reviewed the patient's lab results. Result diagrams: 01/06/18 15:27 01/06/18 15:27 Lab Results 01/06/18 01/06/18 01/06/18 Range/Units 15:25 15:27 15:27 WBC 8.4 (4.3-11.1) K/mcL RBC 4.12 L (4.19-5.50) M/mcL Hgb 11.4 L (12.9-16.9) g/dL Hct 35.5 L (37.5-50.1) % MCV 86.2 (83.0-100.0) fL MCH 27.7 L (28.0-33.3) pg MCHC 32.1 (31.6-35.5) g/dL RDW 13.9 (11.5-14.5) % Plt Count 375 (140-400) K/mcL MPV 9.0 L (9.4-12.4) fL Immature Gran % 1.4 (0-4) % Seg Neutrophils % 68.2 % Lymphocytes % 19.6 % Monocytes % 8.5 % Eosinophils % 1.9 % Basophils % 0.4 % Neutrophils # 5.7 (1.6-8.9) K/mcL Lymphocytes # 1.6 (0.6-4.6) K/mcL Monocytes # 0.7 (0.0-1.3) K/mcL Eosinophils # 0.2 (0.0-0.6) K/mcL Basophils # 0.0 (0.0-0.2) K/mcL APTT 32.9 (26.0-36.0) Seconds Sodium (136-145) mEq/L Potassium (3.5-5.1) mEq/L Chloride (98-107) mEq/L Carbon Dioxide (23-29) mEq/L BUN (6-20) mg/dL Creatinine (0.70-1.30) mg/dL Est GFR ( Amer) (> 60) Est GFR (Non-Af Amer) (> 60) BUN/Creatinine Ratio (6-26) Glucose (70-105) mg/dL Calculated Osmolality (280-300) Calcium (8.6-10.3) mg/dL Total Bilirubin (0.3-1.0) mg/dL Direct Bilirubin (0.0-0.2) mg/dL Indirect Bilirubin (0.0-1.2) mg/dL AST (13-39) Units/L ALT (7-52) Units/L Alkaline Phosphatase (34-104) Units/L Serum Total Protein (6.4-8.9) g/dL Albumin (3.5-5.7) g/dL Globulin (2.4-3.5) g/dL Albumin/Globulin Ratio (1.1-2.2) Lipase (11-82) Units/L Urine Color Yellow (Yellow) Urine Clarity Clear (Clear) Urine pH 5.5 (5.0-8.0) pH Units Ur Specific [place] 1.020 (1.010-1.025) Urine Protein >=300 H (Neg-Trace) mg/dL Urine Glucose (UA) 250 H (Normal) mg/dL Urine Ketones Negative (Negative) mg/dL Urine Blood Small H (Negative) Urine Nitrite Negative (Negative) Urine Bilirubin Negative (Negative) Urine Urobilinogen Normal (Normal) mg/dL Ur Leukocyte Esterase Negative (Negative) Urine Microscopic RBC 0-3 (0-3) per hpf Urine Microscopic WBC 0-3 (0-3) per hpf Ur Squamous Epith Cells Few (None-Few) per lpf Urine Bacteria Few (None-Few) per hpf Hyaline Casts Few (None-Few) per lpf Granular Casts Few H (None Seen) per lpf Urine Mucus Few (Few) Ur Culture Indicated? NO (NO) 01/06/18 Range/Units 15:27 WBC (4.3-11.1) K/mcL RBC (4.19-5.50) M/mcL Hgb (12.9-16.9) g/dL Hct (37.5-50.1) % MCV (83.0-100.0) fL MCH (28.0-33.3) pg MCHC (31.6-35.5) g/dL RDW (11.5-14.5) % Plt Count (140-400) K/mcL MPV (9.4-12.4) fL Immature Gran % (0-4) % Seg Neutrophils % % Lymphocytes % % Monocytes % % Eosinophils % % Basophils % % Neutrophils # (1.6-8.9) K/mcL Lymphocytes # (0.6-4.6) K/mcL Monocytes # (0.0-1.3) K/mcL Eosinophils # (0.0-0.6) K/mcL Basophils # (0.0-0.2) K/mcL APTT (26.0-36.0) Seconds Sodium 137 (136-145) mEq/L Potassium 5.0 (3.5-5.1) mEq/L Chloride 104 (98-107) mEq/L Carbon Dioxide 22 L (23-29) mEq/L BUN 48 H (6-20) mg/dL Creatinine 5.49 H (0.70-1.30) mg/dL Est GFR ( Amer) 13 L (> 60) Est GFR (Non-Af Amer) 11 L (> 60) BUN/Creatinine Ratio 9 (6-26) Glucose 258 H (70-105) mg/dL Calculated Osmolality 305 H (280-300) Calcium 10.1 (8.6-10.3) mg/dL Total Bilirubin 0.5 (0.3-1.0) mg/dL Direct Bilirubin 0.1 (0.0-0.2) mg/dL Indirect Bilirubin 0.4 (0.0-1.2) mg/dL AST 30 (13-39) Units/L ALT 9 (7-52) Units/L Alkaline Phosphatase 87 (34-104) Units/L Serum Total Protein 7.3 (6.4-8.9) g/dL Albumin 4.0 (3.5-5.7) g/dL Globulin 3.3 (2.4-3.5) g/dL Albumin/Globulin Ratio 1.2 (1.1-2.2) Lipase 7 L (11-82) Units/L Urine Color (Yellow) Urine Clarity (Clear) Urine pH (5.0-8.0) pH Units Ur Specific [place] (1.010-1.025) Urine Protein (Neg-Trace) mg/dL Urine Glucose (UA) (Normal) mg/dL Urine Ketones (Negative) mg/dL Urine Blood (Negative) Urine Nitrite (Negative) Urine Bilirubin (Negative) Urine Urobilinogen (Normal) mg/dL Ur Leukocyte Esterase (Negative) Urine Microscopic RBC (0-3) per hpf Urine Microscopic WBC (0-3) per hpf Ur Squamous Epith Cells (None-Few) per lpf Urine Bacteria (None-Few) per hpf Hyaline Casts (None-Few) per lpf Granular Casts (None Seen) per lpf Urine Mucus (Few) Ur Culture Indicated? (NO) - Radiology Data Radiology results reviewed: Yes I reviewed the patient's radiology results.
[2018-01-06 15:35] LABS: Basophils % 0.4 %; Eosinophils # 0.2 K/mcL (0.0-0.6); Eosinophils % 1.9 %; Hematocrit 35.5 % (37.5-50.1); Hemoglobin 11.4 g/dL (12.9-16.9); Immature Granulocytes % 1.4 % (0-4); Lymphocytes # 1.6 K/mcL (0.6-4.6); Lymphocytes % 19.6 %; Mean Corpuscular HGB Conc 32.1 g/dL (31.6-35.5); Mean Corpuscular Hemoglobin 27.7 pg (28.0-33.3); Mean Corpuscular Volume 86.2 fL (83.0-100.0); Monocytes # 0.7 K/mcL (0.0-1.3); Monocytes % 8.5 %; Neutrophils # 5.7 K/mcL (1.6-8.9); Platelet Count 375 K/mcL (140-400); Red Blood Count 4.12 M/mcL (4.19-5.50); Red Cell Distribution Width 13.9 % (11.5-14.5); Segmented Neutrophils % 68.2 %
[2018-01-06 15:42] LABS: Bilirubin,Urine Negative (Negative); Blood,Urine Small (Negative); Clarity,Urine Clear (Clear); Color,Urine Yellow (Yellow); Glucose,Urine (UA) 250 mg/dL (Normal); Ketones,Urine Negative (Negative); Leukocyte Esterase,Urine Negative (Negative); Nitrite,Urine Negative (Negative); PH,Urine 5.5 pH Units (5.0-8.0); Protein,Urine >=300 mg/dL (Neg-Trace); Urobilinogen,Urine Normal (Normal)
[2018-01-06] MEDS ORDERED: Ondansetron 4 MG/2 ML VIAL IVP ONE (15:44)
[2018-01-06 15:50] LABS: Granular Casts,Urine Few per lpf (None Seen); Hyaline Casts,Urine Few per lpf (None-Few); Mucus,Urine Few (Few); RBC,Urine 0-3 per hpf (0-3); Squamous Epithelial Cell,Urine Few per lpf (None-Few); WBC,Urine 0-3 per hpf (0-3)
[2018-01-06 15:51] LABS: Albumin/Globulin Ratio 1.2 (1.1-2.2); Bilirubin,Direct 0.1 mg/dL (0.0-0.2); Bilirubin,Indirect 0.4 mg/dL (0.0-1.2); Bilirubin,Total 0.5 mg/dL (0.3-1.0); Calcium 10.1 mg/dL (8.6-10.3); Globulin 3.3 g/dL (2.4-3.5); Total Protein 7.3 g/dL (6.4-8.9)
[2018-01-06 15:51] LABS: Bacteria,Urine Few per hpf (None-Few)
[2018-01-06] MEDS ORDERED: 0.9 % Sodium Chloride 1,000 ML IVC ONE (16:32)
[2018-01-06] MEDS ORDERED: Acetaminophen 325 MG TABLET PO PRN ×2 (16:37→17:02)
[2018-01-06] MEDS ORDERED: Naloxone 0.4 MG/ML INJ IVP PRN ×2 (16:37→17:02)
[2018-01-06] MEDS ORDERED: 0.9 % Sodium Chloride 1,000 ML IVC SCH ×2 (16:45→17:02)
[2018-01-06] MEDS ORDERED: INSULIN PUMP SQ PRN (17:02)
[2018-01-06] MEDS ORDERED: Ondansetron ODT 4 MG TAB.RAPDIS SL PRN ×3 (17:02→19:06)
[2018-01-06] MEDS ORDERED: Nitroglycerin 0.4 MG TAB.SUBL SL PRN (17:02)
[2018-01-06] MEDS: Carbidopa/Levodopa 25/100 TABLET PO SCH ×2 (17:44→21:04)
[2018-01-06] MEDS: Gabapentin 300 MG CAPSULE PO SCH (21:03)
[2018-01-06] MEDS: Ranolazine 500 MG TAB.ER.12H PO SCH (21:03)
[2018-01-06] MEDS: Fluticasone Propionate Nasal 50 MCG/SPRAY BOTTLE NS SCH (21:08)
[2018-01-07 08:28] LABS: Basophils % 0.3 %; Eosinophils # 0.2 K/mcL (0.0-0.6); Eosinophils % 2.5 %; Hematocrit 33.6 % (37.5-50.1); Hemoglobin 10.8 g/dL (12.9-16.9); Immature Granulocytes % 0.9 % (0-4); Lymphocytes # 1.8 K/mcL (0.6-4.6); Lymphocytes % 20.2 %; Mean Corpuscular HGB Conc 32.1 g/dL (31.6-35.5); Mean Corpuscular Hemoglobin 27.8 pg (28.0-33.3); Mean Corpuscular Volume 86.4 fL (83.0-100.0); Mean Platelet Volume 9.8 fL (9.4-12.4); Monocytes % 11.4 %; Neutrophils # 5.8 K/mcL (1.6-8.9); Platelet Count 372 K/mcL (140-400); Red Blood Count 3.89 M/mcL (4.19-5.50); Red Cell Distribution Width 13.9 % (11.5-14.5); Segmented Neutrophils % 64.7 %
[2018-01-07] MEDS: Cholecalciferol (D-3) 1,000 UNIT TABLET PO SCH ×2 (08:53→12:09)
[2018-01-07] MEDS: Carbidopa/Levodopa 25/100 TABLET PO SCH ×4 (08:53→21:31)
[2018-01-07] MEDS: Isosorbide MONOnitrate (24 HR) 30 MG TAB.ER.24H PO SCH ×2 (08:53→12:09)
[2018-01-07] MEDS: amLODIPine 5 MG TABLET PO SCH ×2 (08:53→12:09)
[2018-01-07] MEDS: Aspirin 81 MG TAB.CHEW PO SCH ×2 (08:53→12:08)
[2018-01-07] MEDS: Loratadine 10 MG TABLET PO SCH (08:53)
[2018-01-07] MEDS: Ranolazine 500 MG TAB.ER.12H PO SCH ×2 (08:53→21:32)
[2018-01-07] MEDS: Lisinopril 20 MG TABLET PO SCH ×2 (08:53→12:09)
[2018-01-07 09:46] LABS: Calcium 9.6 mg/dL (8.6-10.3); Chol/HDL Ratio 3.9 (0-4.9); Magnesium 1.8 mg/dL (1.6-2.6); Potassium 4.5 mEq/L (3.5-5.1)
--- NOTE | 2018-01-07 09:52 | Internal Med History&Physical ---
Date of Encounter: 01/07/18 Time of Encounter: 09:30 Assessment and Plan (1) Abdominal pain Current visit: No Status: Acute Etiology uncertain. It has lessened since admission. Continue to monitor. Qualifiers: Abdominal location: unspecified location Qualified Code(s): R10.9 - Unspecified abdominal pain (2) Anemia Current visit: No Status: Acute Secondary to chronic kidney disease. Monitor CBC. Qualifiers: Anemia type: other cause Other causes of anemia: other cause, not classified Qualified Code(s): D64.89 - Other specified anemias (3) Diabetes Current visit: No Status: Chronic Hemoglobin A1c was 9.3% on 05/23/2017. Recheck in a.m. 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 Continue present dose Synthroid. Qualifiers: Hypothyroidism type: acquired Qualified Code(s): E03.9 - Hypothyroidism, unspecified (5) Hyperuricemia Current visit: No Status: Chronic He was started on allopurinol at discharge June 2017. It has been discontinued. Recheck uric acid level in a.m. Internal Medicine - H&P: HPI Chief complaint: Nausea and abdominal discomfort Admitted From: Emergency Dept Plans for Post Hospital Care: Home History of present illness: Mr. Hdz is a 57 year old male came to emergency room stating he developed on January 01. He had no significant vomiting and no diarrhea. The discomfort waxed and waned over the next few days but never resolved. His made him come to emergency room on January [address] of abdomen showed no acute pathology. He was given Zofran and Phenergan and discharged home. When he did not feel improved he returned to the emergency room on the following day and was admitted to [facility] for ongoing care needs. He states he feels improved present time and not back to his baseline. GI history is pertinent for cholecystectomy -2015. He has GERD but denies disorders of his liver or exocrine pancreas. He reports he had unremarkable nuclear medicine gastric emptying study a few years ago. Past Med Surg Social Fam HX - Past Medical History Medical history: coronary artery disease, diabetes, GERD, hyperlipidemia, hypertension, myocardial infarction, renal disease, thyroid disease, other Additional medical history: Stage IV CKD, Parkinsons Disease, Sleep Apnea Psychiatric history: depression - Past Surgical History Surgical History: angioplasty/stent, cholecystectomy, other Additional surgical history: Left Heart Cath 3 stents, Left Upper Extremity AV Shunt - Social History Smoking Status: Never smoker Smokeless Tobacco Status: No Alcohol use: none Drug use: none - Family History Mother Living Status: Still Living Hx Family Cardiac Disorders: Yes (htn) Father Living Status: Hx Family Cardiac Disorders: Yes Brother Living Status: Hx Family Cardiac Disorders: Yes Hx Family Neurologic Disorders: Yes (stroke) Internal Medicine - H&P: Meds Ranolazine [Ranexa] 1,000 mg PO BID 11/25/14 [History] Aspirin 81 mg PO DAILY 09/20/15 [History] Carbidopa/Levodopa 25/100 [Sinemet 25/100] 1 tab PO QID 09/20/15 [History] Fluticasone Propionate Nasal [Flonase] 50 mcg NS HS 09/20/15 [History] Rosuvastatin [Crestor] 40 mg PO DAILY 09/20/15 [History] Sertraline [Zoloft] 50 mg PO HS 09/20/15 [History] Metoprolol [Lopressor] 100 mg PO BID 01/22/16 [History] Subcutaneous Insulin Pump [T:Slim] 1 each MC DAILY PRN 10/01/16 [History] Clopidogrel [Plavix] 75 mg PO DAILY #30 tablet 10/02/16 [Rx] Montelukast [Singulair] 10 mg PO DAILY 02/02/17 [History] Isosorbide MONOnitrate (24 HR) [Imdur] 30 mg PO DAILY 05/10/17 [History] Levothyroxine Sodium [Levo-T] 200 mcg PO 0630 05/10/17 [History] Calcitriol 0.5 mcg PO DAILY 11/24/17 [History] Cholecalciferol (D-3) [Vitamin D] 2,000 unit PO DAILY 11/24/17 [History] Gabapentin [Neurontin] 600 mg PO HS 11/24/17 [History] Loratadine [Allergy Relief] 10 mg PO DAILY 11/24/17 [History] Nitroglycerin [Nitrostat] 0.4 mg SL Q5MIN PRN MDD [id number] CALL 911 11/24/17 [ History] Insulin Glargine,Hum.rec.anlog [Lantus Solostar] 50 unit SQ AD PRN 11/25/17 [ History] Ondansetron ODT [Zofran ODT] 8 mg SL Q6HR PRN 11/25/17 [History] Lisinopril [Zestril] 40 mg PO DAILY #30 tablet 11/27/17 [Rx] amLODIPine [Norvasc] 10 mg PO DAILY #60 tablet 11/27/17 [Rx] Ondansetron ODT [Zofran ODT] 4 mg SL Q6HR PRN #8 tab.rapdis 01/05/18 [Rx] Promethazine [Phenergan] 25 mg PO Q6HR PRN #16 tablet 01/05/18 [Rx] 3 Allergy/AdvReac Type Severity Reaction Status Date / Time Oxycodone [From Percocet] Allergy Itching/JERI Verified 07/14/17 08:30 H All Systems PM: A 10-system review of systems was performed and is negative for pertinent findings except as documented above in the HPI. Review of systems: Review of systems from his June 2017 [facility] hospitalization were reviewed and revised as below. Gen.: His weight has minimally changed from 126.006 kg November 2013 to present weight of 127.006 kg. Cardiovascular: He has history of hypertension and known ASHD status post MD 1995 and PTCA with 2 stents in 2012 at [facility]. He had a nuclear medicine EST which showed EKG and perfusion imaging negative for ischemia. He had an echocardiogram 09/30/2016 which showed LVEF of 55% with moderate LV diastolic dysfunction reported. The E/A ratio was 1.4. There was reported LAE without measurements recorded. There was no significant valvular dysfunction and no evidence of pulmonary hypertension. There was increased left ventricular end diastolic diameter at 6.40 cm. The interventricular septum and posterior wall thickness measurements were 0.9 and 1.0 cm respectively. A limited echocardiogram was done 02/03/2017 without new significant findings. There is no history of DVT or pulmonary embolus. Respiratory: He is a lifelong nonsmoker has no known chronic lung disease. He has OTIS and wears BiPAP at bedtime. GI: As per history of present illness : He has chronic kidney disease stage 5 and had AV fistula recently placed in his left forearm as preparation for dialysis. 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 He denies other kidney bladder prostate disorders Neurologic: He has been diagnosed with Parkinson's disease but denies large distribution strokes or seizures. Endocrine: He was diagnosed with DM 2 in 1986. He has DPN, hypothyroidism, and hyperlipidemia. Hematology/oncology: He denies blood disorders or cancers. He does have anemia probably secondary to chronic kidney disease. Anemia testing during June 2017 hospitalization showed no factor deficiency. Psychiatric: He has anxiety and depression but denies other mental health issues [place] skeletal: He has DJD and vitamin D deficiency but no known gout or osteoporosis. - Constitutional Vitals: Temp Pulse Resp BP Pulse Ox 99.3 F 65 17 135/68 97 01/07/18 08:00 01/07/18 08:00 01/07/18 08:00 01/07/18 08:00 01/07/18 08:00 Exam: Gen.: He is well-developed well-nourished male sitting on the side of bed who appears in no acute distress at present time HEENT: Head is atraumatic and normocephalic. Eyes: EOMI. There is no scleral icterus. Mouth: Mucosa is moist. Neck: Supple and nontender. There is no thyromegaly or adenopathy noted. Heart: Regular without murmurs gallops or ectopics Lungs: No wheezes or crackles are heard. Abdomen: Soft and nontender. No masses or guarding are noted. Extremities: There is no cyanosis edema or clubbing noted. Dorsalis pedis and posterior tibial pulses are trace palpable bilaterally. His feet are warm to touch. He has an AV fistula in his left forearm. Neurologic: Mental status: He is talkative and a good historian. Cranial nerves : Smile is symmetric. Forehead wrinkles bilaterally. Tongue protrudes midline. EOMI. Motor: There is no pronator drift. Cerebellar: Finger to nose is intact bilaterally. Skin: Warm and dry Internal Med - H&P Results - Labs CBC & Chem 7: 01/07/18 07:24 01/07/18 07:24 Labs: Short CBC 01/07/18 Range/Units 07:24 WBC 8.9 (4.3-11.1) K/mcL Hgb 10.8 L (12.9-16.9) g/dL Hct 33.6 L (37.5-50.1) % Plt Count 372 (140-400) K/mcL Neutrophils # 5.8 (1.6-8.9) K/mcL BMP 01/07/18 07:24 Sodium 137 Potassium 4.5 Chloride 105 Carbon Dioxide 22 L BUN 44 H Creatinine 5.16 H Glucose 250 H Calcium 9.6
[2018-01-07] MEDS: Ondansetron ODT 4 MG TAB.RAPDIS SL PRN ×2 (14:32→19:57)
[2018-01-07] MEDS: Gabapentin 300 MG CAPSULE PO SCH (21:32)
[2018-01-07] MEDS: Fluticasone Propionate Nasal 50 MCG/SPRAY BOTTLE NS SCH (21:40)
[2018-01-08] MEDS: Cholecalciferol (D-3) 1,000 UNIT TABLET PO SCH (07:46)
[2018-01-08] MEDS: Loratadine 10 MG TABLET PO SCH (07:46)
[2018-01-08] MEDS: Isosorbide MONOnitrate (24 HR) 30 MG TAB.ER.24H PO SCH (07:46)
[2018-01-08] MEDS: Aspirin 81 MG TAB.CHEW PO SCH (07:46)
[2018-01-08] MEDS: Ranolazine 500 MG TAB.ER.12H PO SCH (07:47)
[2018-01-08] MEDS: Lisinopril 20 MG TABLET PO SCH (07:47)
[2018-01-08] MEDS: amLODIPine 5 MG TABLET PO SCH (07:47)
[2018-01-08] MEDS: Carbidopa/Levodopa 25/100 TABLET PO SCH (07:47)
[2018-01-08 08:03] VITALS: BP 125/63
--- NOTE | 2018-01-08 10:38 | Discharge Summary ---
Orders not resulted at time of discharge: Pending orders 01/08/18 07:35 Hgb A1C AM 0400 Date of Encounter: 01/08/18 Time of Encounter: 10:30 - Discharge Diagnosis (1) Abdominal pain Priority: Primary Status: Acute Qualifiers: Abdominal location: unspecified location Qualified Code(s): R10.9 - Unspecified abdominal pain (2) Anemia Priority: Secondary Status: Acute Qualifiers: Anemia type: other cause Other causes of anemia: other cause, not classified Qualified Code(s): D64.89 - Other specified anemias (3) Diabetes Priority: Secondary Status: Chronic Qualifiers: Diabetes mellitus type: type 2 Diabetes mellitus prison insulin use: with prison use Diabetes mellitus complication status: with other specified complication Qualified Code(s): E11.69 - Type 2 diabetes mellitus with other specified complication; Z79.4 - long-term (current) use of insulin; Z79.4 - long-term (current) use of insulin; Z79.4 - exterminator (current) use of insulin; Z79.4 - long-term (current) use of insulin (4) Hypothyroidism Priority: Secondary Status: Chronic Qualifiers: Hypothyroidism type: unspecified Qualified Code(s): E03.9 - Hypothyroidism , unspecified (5) Hyperuricemia Priority: Secondary Status: Chronic Hospital course: Mr. Hdz is a 57 year old male who came to emergency room stating he developed abdominal discomfort on January 01. He had no significant vomiting and no diarrhea. The discomfort waxed and waned over the next few days but never resolved. His made him come to emergency room on January [address] of abdomen showed no acute pathology. He was given Zofran and Phenergan and discharged home. When he did not feel improved he returned to the emergency room on the following day and was admitted to [facility] for ongoing care needs. Initial orders were written by the emergency room physician. I saw him on January 07 and performed the history and physical. He felt improved by the time I saw him. The abdominal pain had completely resolved by the following day and he felt stable for discharge home. The etiology of pain was not determined with certainty. Additional lab work done during hospitalization showed hemoglobin decrease to 10.8 on January 07. BUN and creatinine improved slightly to 44 and 5.16 respectively with estimated GFR of 12. Uric acid returned elevated at 8.9. BN peptide was minimally elevated at 108. Hemoglobin A1c is pending at time of discharge. On January 08 he felt stable for discharge home. He will follow with his PCP Dr. Sangita Macias within 1 week. - Time Spent with Patient Total time spent providing and/or coordinating discharge services: - Discharge Medications Home Medications: Ranolazine [Ranexa] 1,000 mg PO BID 11/25/14 [History] Aspirin 81 mg PO DAILY 09/20/15 [History] Carbidopa/Levodopa 25/100 [Sinemet 25/100] 1 tab PO QID 09/20/15 [History] Fluticasone Propionate Nasal [Flonase] 50 mcg NS HS 09/20/15 [History] Rosuvastatin [Crestor] 40 mg PO DAILY 09/20/15 [History] Sertraline [Zoloft] 50 mg PO HS 09/20/15 [History] Metoprolol [Lopressor] 100 mg PO BID 01/22/16 [History] Subcutaneous Insulin Pump [T:Slim] 1 each MC DAILY PRN 10/01/16 [History] Clopidogrel [Plavix] 75 mg PO DAILY #30 tablet 10/02/16 [Rx] Montelukast [Singulair] 10 mg PO DAILY 02/02/17 [History] Isosorbide MONOnitrate (24 HR) [Imdur] 30 mg PO DAILY 05/10/17 [History] Levothyroxine Sodium [Levo-T] 200 mcg PO 0630 05/10/17 [History] Calcitriol 0.5 mcg PO DAILY 11/24/17 [History] Cholecalciferol (D-3) [Vitamin D] 2,000 unit PO DAILY 11/24/17 [History] Gabapentin [Neurontin] 600 mg PO HS 11/24/17 [History] Loratadine [Allergy Relief] 10 mg PO DAILY 11/24/17 [History] Nitroglycerin [Nitrostat] 0.4 mg SL Q5MIN PRN MDD [id number] CALL 911 11/24/17 [ History] Insulin Glargine,Hum.rec.anlog [Lantus Solostar] 50 unit SQ AD PRN 11/25/17 [ History] Ondansetron ODT [Zofran ODT] 8 mg SL Q6HR PRN 11/25/17 [History] Lisinopril [Zestril] 40 mg PO DAILY #30 tablet 11/27/17 [Rx] amLODIPine [Norvasc] 10 mg PO DAILY #60 tablet 11/27/17 [Rx] Ondansetron ODT [Zofran ODT] 4 mg SL Q6HR PRN #8 tab.rapdis 01/05/18 [Rx] Promethazine [Phenergan] 25 mg PO Q6HR PRN #16 tablet 01/05/18 [Rx] Allergies/Adverse Reactions: 3 Allergy/AdvReac Type Severity Reaction Status Date / Time Oxycodone [From Percocet] Allergy Itching/JERI Verified 07/14/17 08:30 H Date of admission: 01/06/18 16:43 Primary care physician: Sangita Macias DO - Constitutional Vitals: Temp Pulse Resp BP Pulse Ox 98.5 F 58 16 125/63 93 01/08/18 08:01 01/08/18 08:01 01/08/18 08:01 01/08/18 08:01 01/08/18 08:01 - Patient Status Disposition: Home, Self-Care Condition: Undetermined - Discharge Instructions Follow Up With: Sangita Macias DO [Primary Care Provider] - 1 week - Diet and Activity Activity: resume usual activities as tolerated Diet: advance to your usual diet
[2018-01-08 10:46] LABS: Estimated Average Glucose 203 mg/dl; Hemoglobin A1C 8.7 %
== END 2018-01-08 11:15 | disposition home or self-care (01) ==
LOC: EMEROOPIK 14:14 → INPPIK 14:14
PROVIDERS: ADMIT Internal Medicine; ATTEND Internal Medicine

== ENCOUNTER 2018-03-09 01:37 | Observation (INO) ==
[2018-03-09] MEDS ORDERED: 0.9 % Sodium Chloride 1,000 ML IVC ONE (01:50)
[2018-03-09] MEDS ORDERED: Ondansetron 4 MG/2 ML VIAL IVP ONE ×3 (01:50→05:27)
--- NOTE | 2018-03-09 01:53 | Emergency Department Note ---
Disposition Clinical Impression: Dehydration Acute gastritis Qualifiers: Gastritis type: superficial Gastritis bleeding: without bleeding Qualified Code(s): K29.00 - Acute gastritis without bleeding Chronic kidney disease (CKD) Qualifiers: Chronic kidney disease stage: unspecified stage Qualified Code(s): N18.9 - Chronic kidney disease, unspecified Diabetes Qualifiers: Diabetes mellitus type: type 2 Diabetes mellitus scientific glass blower insulin use: with scientific glass blower use Disposition: Admitted As Inpatient Condition: Good Time of Disposition: 04:40 (Dr Mcdaniels accepted him for IV hydration) General Adult HPI - General Chief complaint: ED Abdominal Pain Stated complaint: n/v with renal failure Time Seen by Provider: 03/09/18 01:50 Source: patient, family, EMS Nursing Notes Reviewed: Yes Vital Signs Reviewed: Yes - History of Present Illness HPI Narrative: Patient is a pleasant 58 yo male with past medical history significant for HTN, DM, Dyslipidemia and CRF who is presenting to [facility] Emergency Room with a chief complaint off abdominal pain, nausea, vomiting with no diarrhea in the past two days. The vomitus is non bilious non bloody and not associated with any modifying factors. No recent eating in restaurant or left over fod. called due to weakness. He has left UE fistula but never started dialysis. Was seen 02/16 for similar symptoms and was dc home with phenergan. Patient denies any fever, chills or night sweats. Pt also denies any eye pain or visual dis turbances. There is no sore throat, nasal drainages or facial congestion. There is no chest pain, palpitations or racing heart. Pt also denies any shortness of breath, cough or chest congestion. . There is no urgency, frequency or dysuria. There is no muskulo-skeletal pain, arthralgia or back pain. Patient also denies any rash, edema or pruritus. There is no neurological manifestations, no headache, no vertigo or weakness. The patient also denies any anxiety, depression, hallucinations and has no homicidal or suicidal ideations. There is no polyuria, polydipsia or recent weight change. There is no easy bruising or bleeding. Review of other systems is otherwise negative except above. Onset (ago): day(s) Location: abdomen Radiation: non-radiation Pain Severity: moderate Pain Scale: 1 - Related Data Home Medications Medication Instructions Recorded Confirmed Ranolazine [Ranexa] 1,000 mg PO BID 11/25/14 03/09/18 Aspirin 81 mg PO DAILY 09/20/15 03/09/18 Carbidopa/Levodopa 25 [Sinemet 1 tab PO QID 09/20/15 03/09/18 25] Fluticasone Propionate Nasal 50 mcg NS HS 09/20/15 03/09/18 [Flonase] Rosuvastatin [Crestor] 40 mg PO DAILY 09/20/15 03/09/18 Sertraline [Zoloft] 50 mg PO HS 09/20/15 03/09/18 Metoprolol [Lopressor] 100 mg PO BID 01/22/16 03/09/18 Subcutaneous Insulin Pump [T:Slim] 1 each MC DAILY PRN 10/01/16 03/09/18 Montelukast [Singulair] 10 mg PO DAILY 02/02/17 03/09/18 Isosorbide MONOnitrate (24 HR) 30 mg PO DAILY 05/10/17 03/09/18 [Imdur] Levothyroxine Sodium [Levo-T] [place] [address]/10/17 03/09/18 Calcitriol 0.5 mcg PO DAILY 11/24/17 03/09/18 Cholecalciferol (D-3) [Vitamin D] 2,000 unit PO DAILY 11/24/17 03/09/18 Gabapentin [Neurontin] 600 mg PO HS 11/24/17 03/09/18 Loratadine [Allergy Relief] 10 mg PO DAILY 11/24/17 03/09/18 Nitroglycerin [Nitrostat] 0.4 mg SL Q5MIN PRN MDD [id number] 11/24/17 03/09/18 CALL 911 Insulin Glargine,Hum.rec.anlog 50 unit SQ AD PRN 11/25/17 03/09/18 [Lantus Solostar] Previous Rx's Medication Instructions Recorded Clopidogrel [Plavix] 75 mg PO DAILY #30 tablet 10/02/16 Lisinopril [Zestril] 40 mg PO DAILY #30 tablet 11/27/17 amLODIPine [Norvasc] 10 mg PO DAILY #60 tablet 11/27/17 Ondansetron ODT [Zofran ODT] 4 mg SL Q4HR PRN #15 tab.rapdis 01/09/18 Promethazine [Phenergan] 25 mg PO Q8HR #6 tablet 02/16/18 Allergies Allergy/AdvReac Type Severity Reaction Status Date / Time Oxycodone [From Percocet] Allergy Itching/JERI Verified 07/14/17 08:30 H All systems ED: reviewed and negative except as stated. Review of Systems: As Per HPI Constitutional: Reports: weakness. Denies: fever, chills, weight change Eyes: Denies: eye pain, eye discharge, vision change ENT ED: Denies: ear pain, throat pain, dental pain, hearing loss, epistaxis, congestion, dysphagia Cardiovascular: Denies: chest pain, palpitations, dyspnea on exertion, edema, syncope Respiratory: Denies: cough, dyspnea, wheezes, hemoptysis, stridor Gastrointestinal: Reports: abdominal pain, nausea, vomiting. Denies: diarrhea, constipation, hematemesis, melena, hematochezia Genitourinary: Denies: urgency, dysuria, frequency, hematuria Musculoskeletal: Denies: back pain, neck pain, arthralgia, myalgia Integumentary: Denies: rash, abrasion, lesions Neurological: Reports: weakness. Denies: headache, numbness, paresthesias, confusion, abnormal gait, vertigo Psychiatric: Denies: anxiety, depression, suicidal thoughts, homicidal thoughts, auditory hallucinations, visual hallucinations Endocrine: Reports: fatigue Hematological/Lymphatic: Denies: easy bleeding, easy bruising Allergic/Immunologic: Denies: facial swelling, urticaria Past Medical History - Past Medical History Medical history: Reports: coronary artery disease, diabetes, GERD, hyperlipidemia, hypertension, myocardial infarction, renal disease, thyroid disease, other Surgical history: Reports: angioplasty/stent, cholecystectomy, other Psychiatric history: Reports: depression - Social History Smoking Status: Never smoker Smokeless Tobacco Status: No Alcohol use: Reports: none Drug use: Reports: none Physical Exam - General Limitations: no limitations General appearance: alert, in no apparent distress, lethargic - Head Head exam: atraumatic, normocephalic, normal inspection - Eye Eye exam: Present: normal appearance, PERRL, EOMI - Expanded Eye Exam Pupils: Bilateral: reactive - ENT ENT exam: normal exam, normal oropharynx, mucous membranes moist - Expanded ENT Exam External ear exam: Present: normal external inspection Mouth exam: Present: normal external inspection Teeth exam: Present: normal inspection Throat exam: Present: normal inspection - Neck Neck exam: Present: normal inspection, full ROM, trachea midline - Chest Chest inspection: Present: normal inspection, symmetric chest wall rise - Respiratory Respiratory exam: Present: normal lung sounds bilaterally - Cardiovascular Cardiovascular exam: Present: regular rate, normal rhythm, normal heart sounds - Abdominal Exam Abdominal exam: Present: soft, Non-Tender. Absent: tenderness, distention, guarding, rebound, rigidity - Extremities Exam Extremities exam: Present: normal inspection, full ROM. Absent: tenderness, pedal edema - Expanded Upper Extremity Exam Shoulder exam: Present: normal inspection, full ROM Arm exam: Present: normal inspection, full ROM Elbow exam: Present: normal inspection, full ROM Forearm/Wrist exam: Present: normal inspection, full ROM Hand exam: Present: normal inspection, full ROM Vascular exam: Normal: capillary refill, radial pulse - Expanded Lower Extremity Exam Hip/Pelvis exam: Present: normal inspection, full ROM Upper leg exam: Present: normal inspection, full ROM Knee exam: Present: normal inspection, full ROM Lower leg exam: Present: normal inspection, full ROM Ankle exam: Present: normal inspection, full ROM Foot/toe exam: Present: normal inspection, full ROM Neurovascular/Tendon exam: Absent: motor deficit, sensory deficit, tendon deficit - Back Exam Back exam: Present: normal inspection, full ROM. Absent: tenderness - Neurological Exam Neurological exam: Present: alert, oriented X3 - Expanded Neurological Exam Patient oriented to: Present: person, place, time Coma Scale Eye Opening: Spontaneous Coma Scale Motor Response: Obeys Commands Coma Scale Verbal Response: Oriented Coma Scale Total: 15 - Psychiatric Psychiatric exam: Present: normal affect, normal mood - Skin Skin exam: Present: warm, dry, intact, normal color Course Vital Signs Temperature 98.0 F 03/09/18 01:43 Pulse Rate 93 03/09/18 01:43 Respiratory Rate 18 03/09/18 01:43 Blood Pressure 131/88 03/09/18 01:43 O2 Sat by Pulse Oximetry 94 03/09/18 01:43 Temperature 98.0 F 03/09/18 01:43 Pulse Rate 88 03/09/18 04:30 Respiratory Rate 18 03/09/18 04:30 Blood Pressure 129/83 03/09/18 04:30 O2 Sat by Pulse Oximetry 96 03/09/18 04:30 Oxygen Delivery Oxygen Delivery Room Air Medical Decision Making - MDM Narrative Medical decision making narrative: Delayed admission due to difficulty getting an IV access. - Medical Records Medical records reviewed: Yes I reviewed the patient's medical records. - Lab Data Lab results reviewed: Yes I reviewed the patient's lab results. Result diagrams: 03/09/18 02:45 03/09/18 02:45 Lab Results 03/09/18 03/09/18 03/09/18 Range/Units 02:45 02:45 02:45 WBC 9.1 (4.3-11.1) K/mcL RBC 4.47 (4.19-5.50) M/mcL Hgb 12.2 L (12.9-16.9) g/dL Hct 38.9 (37.5-50.1) % MCV 87.0 (83.0-100.0) fL MCH 27.3 L (28.0-33.3) pg MCHC 31.4 L (31.6-35.5) g/dL RDW 14.6 H (11.5-14.5) % Plt Count 265 (140-400) K/mcL MPV 9.8 (9.4-12.4) fL Immature Gran % 0.7 (0-4) % Seg Neutrophils % 67.9 % Lymphocytes % 18.8 % Monocytes % 9.8 % Eosinophils % 2.4 % Basophils % 0.4 % Neutrophils # 6.2 (1.6-8.9) K/mcL Lymphocytes # 1.7 (0.6-4.6) K/mcL Monocytes # 0.9 (0.0-1.3) K/mcL Eosinophils # 0.2 (0.0-0.6) K/mcL Basophils # 0.0 (0.0-0.2) K/mcL Platelet Estimate Normal (Normal) PT (9.4-12.1) Seconds INR APTT (26.0-36.0) Seconds Sodium 141 (136-145) mEq/L Potassium 4.9 (3.5-5.1) mEq/L Chloride 106 (98-107) mEq/L Carbon Dioxide 21 L (23-29) mEq/L BUN 54 H (6-20) mg/dL Creatinine 5.52 H (0.70-1.30) mg/dL Est GFR ( Amer) 13 L (> 60) Est GFR (Non-Af Amer) 11 L (> 60) BUN/Creatinine Ratio 10 (6-26) Glucose 156 H (70-105) mg/dL Calculated Osmolality 310 H (280-300) Calcium 9.6 (8.6-10.3) mg/dL Magnesium 2.0 (1.6-2.6) mg/dL Total Bilirubin 0.6 (0.3-1.0) mg/dL Direct Bilirubin 0.2 (0.0-0.2) mg/dL Indirect Bilirubin 0.4 (0.0-1.2) mg/dL AST 17 (13-39) Units/L ALT 9 (7-52) Units/L Alkaline Phosphatase 94 (34-104) Units/L Serum Total Protein 7.4 (6.4-8.9) g/dL Albumin 3.8 (3.5-5.7) g/dL Globulin 3.6 H (2.4-3.5) g/dL Albumin/Globulin Ratio 1.1 (1.1-2.2) Amylase 30 (29-103) Units/L Lipase 6 L (11-82) Units/L /15/18 Range/Units 03:50 WBC (4.3-11.1) K/mcL RBC (4.19-5.50) M/mcL Hgb (12.9-16.9) g/dL Hct (37.5-50.1) % MCV (83.0-100.0) fL MCH (28.0-33.3) pg MCHC (31.6-35.5) g/dL RDW (11.5-14.5) % Plt Count (140-400) K/mcL MPV (9.4-12.4) fL Immature Gran % (0-4) % Seg Neutrophils % % Lymphocytes % % Monocytes % % Eosinophils % % Basophils % % Neutrophils # (1.6-8.9) K/mcL Lymphocytes # (0.6-4.6) K/mcL Monocytes # (0.0-1.3) K/mcL Eosinophils # (0.0-0.6) K/mcL Basophils # (0.0-0.2) K/mcL Platelet Estimate (Normal) PT 12.4 H (9.4-12.1) Seconds INR 1.1 APTT 30.5 (26.0-36.0) Seconds Sodium (136-145) mEq/L Potassium (3.5-5.1) mEq/L Chloride (98-107) mEq/L Carbon Dioxide (23-29) mEq/L BUN (6-20) mg/dL Creatinine (0.70-1.30) mg/dL Est GFR ( Amer) (> 60) Est GFR (Non-Af Amer) (> 60) BUN/Creatinine Ratio (6-26) Glucose (70-105) mg/dL Calculated Osmolality (280-300) Calcium (8.6-10.3) mg/dL Magnesium (1.6-2.6) mg/dL Total Bilirubin (0.3-1.0) mg/dL Direct Bilirubin (0.0-0.2) mg/dL Indirect Bilirubin (0.0-1.2) mg/dL AST (13-39) Units/L ALT (7-52) Units/L Alkaline Phosphatase (34-104) Units/L Serum Total Protein (6.4-8.9) g/dL Albumin (3.5-5.7) g/dL Globulin (2.4-3.5) g/dL Albumin/Globulin Ratio (1.1-2.2) Amylase (29-103) Units/L Lipase (11-82) Units/L - Radiology Data Radiology results reviewed: Yes I reviewed the patient's radiology results. EXAMINATION: CT OF THE ABDOMEN AND PELVIS WITHOUT CONTRAST 03/09/2018 3:05 am TECHNIQUE: CT of the abdomen and pelvis was performed without the administration of intravenous contrast. Multiplanar reformatted images are provided for review. Dose modulation, iterative reconstruction, and/or weight based adjustment of the mA/kV was utilized to reduce the radiation dose to as low as reasonably achievable. COMPARISON: 01/05/2018 HISTORY: ORDERING SYSTEM PROVIDED HISTORY: abdominal pain FINDINGS: Lower Chest: There is bibasilar atelectasis. Organs: The liver, spleen, pancreas, adrenal glands and kidneys are grossly negative. GI/Bowel: Small bowel caliber is normal. The appendix is normal. The colon is unremarkable. Pelvis: The bladder is grossly negative. Peritoneum/Retroperitoneum: There is minimal fat stranding anterior to the right psoas muscle and along the right external iliac artery. No underlying abnormality is identified. There is no free fluid or adenopathy. Aortic caliber is normal. Bones/Soft Tissues: Unremarkable. CT/CT abd pelvis wo no iv no oral IMPRESSION: Nonspecific fat stranding adjacent to the right psoas muscle and external iliac artery. Otherwise negative study. D/ / Eugene Del Cid MD / Eugene Del Cid MD Interpreting Provider: Eugene Del Cid MD
[2018-03-09] MEDS ORDERED: Ondansetron ODT 4 MG TAB.RAPDIS SL ONE (02:36)
[2018-03-09 02:53] LABS: Basophils % 0.4 %; Eosinophils # 0.2 K/mcL (0.0-0.6); Eosinophils % 2.4 %; Hematocrit 38.9 % (37.5-50.1); Hemoglobin 12.2 g/dL (12.9-16.9); Immature Granulocytes % 0.7 % (0-4); Lymphocytes # 1.7 K/mcL (0.6-4.6); Lymphocytes % 18.8 %; Mean Corpuscular HGB Conc 31.4 g/dL (31.6-35.5); Mean Corpuscular Hemoglobin 27.3 pg (28.0-33.3); Mean Platelet Volume 9.8 fL (9.4-12.4); Monocytes # 0.9 K/mcL (0.0-1.3); Monocytes % 9.8 %; Neutrophils # 6.2 K/mcL (1.6-8.9); Platelet Count 265 K/mcL (140-400); Red Blood Count 4.47 M/mcL (4.19-5.50); Red Cell Distribution Width 14.6 % (11.5-14.5); Segmented Neutrophils % 67.9 %
[2018-03-09 03:11] LABS: Platelet Estimate Normal (Normal)
[2018-03-09 03:13] LABS: Alanine Aminotransferase 9 Units/L (7-52); Albumin 3.8 g/dL (3.5-5.7); Albumin/Globulin Ratio 1.1 (1.1-2.2); Alkaline Phosphatase 94 Units/L (34-104); Amylase 30 Units/L (29-103); Aspartate Amino Transferase 17 Units/L (13-39); BUN/Creatinine Ratio 10 (6-26); Bilirubin,Direct 0.2 mg/dL (0.0-0.2); Bilirubin,Indirect 0.4 mg/dL (0.0-1.2); Bilirubin,Total 0.6 mg/dL (0.3-1.0); Blood Urea Nitrogen 54 mg/dL (6-20); Calcium 9.6 mg/dL (8.6-10.3); Carbon Dioxide 21 mEq/L (23-29); Chloride 106 mEq/L (98-107); Globulin 3.6 g/dL (2.4-3.5); Glucose 156 mg/dL (70-105); Lipase 6 Units/L (11-82); Osmolality,Calculated 310 (280-300); Potassium 4.9 mEq/L (3.5-5.1); Sodium 141 mEq/L (136-145); Total Protein 7.4 g/dL (6.4-8.9); eGFR For Non-African Americans 11 (> 60)
[2018-03-09 04:08] LABS: INR 1.1; Prothrombin Time 12.4 Seconds (9.4-12.1)
[2018-03-09 04:11] LABS: Activated Partial Thrombo Time 30.5 Seconds (26.0-36.0)
[2018-03-09] MEDS ORDERED: *HR* Promethazine 25 MG/ML VIAL IVP ONE (04:47)
[2018-03-09] MEDS ORDERED: Naloxone 0.4 MG/ML INJ IVP PRN ×2 (04:49→05:27)
[2018-03-09] MEDS ORDERED: 0.9 % Sodium Chloride 1,000 ML IVC SCH ×2 (05:00→05:27)
[2018-03-09] MEDS ORDERED: Nitroglycerin 0.4 MG TAB.SUBL SL PRN (05:27)
[2018-03-09] MEDS ORDERED: Subcutaneous Insulin Pump MC PRN (05:27)
[2018-03-09] MEDS ORDERED: Insulin DETEMIR 100 UNIT/ML X5UNITS SQ PRN (05:27)
[2018-03-09] MEDS ORDERED: Lisinopril 20 MG TABLET PO SCH (09:00)
[2018-03-09] MEDS: Ondansetron ODT 4 MG TAB.RAPDIS SL PRN ×3 (09:45→21:29)
[2018-03-09] MEDS: Carbidopa/Levodopa 25/100 TABLET PO SCH ×4 (11:37→21:29)
[2018-03-09] MEDS: *HR* Promethazine 25 MG/ML VIAL IVP PRN ×3 (11:48→23:04)
[2018-03-09 11:54] LABS: Bilirubin,Urine Negative (Negative); Blood,Urine Small (Negative); Clarity,Urine Clear (Clear); Color,Urine Yellow (Yellow); Glucose,Urine (UA) 100 mg/dL (Normal); Ketones,Urine Negative (Negative); Leukocyte Esterase,Urine Negative (Negative); Nitrite,Urine Negative (Negative); Protein,Urine 100 mg/dL (Neg-Trace); Urobilinogen,Urine Normal (Normal)
[2018-03-09 12:04] LABS: Bacteria,Urine Few per hpf (None-Few); Granular Casts,Urine Few per lpf (None Seen); Hyaline Casts,Urine Few per lpf (None-Few); RBC,Urine 0-3 per hpf (0-3); Squamous Epithelial Cell,Urine Few per lpf (None-Few); WBC,Urine 0-3 per hpf (0-3)
[2018-03-09] MEDS: Aspirin 81 MG TAB.CHEW PO SCH (14:11)
[2018-03-09] MEDS: Cholecalciferol (D-3) 1,000 UNIT TABLET PO SCH (14:11)
[2018-03-09] MEDS: Ranolazine 500 MG TAB.ER.12H PO SCH ×2 (14:11→21:29)
[2018-03-09] MEDS: Isosorbide MONOnitrate (24 HR) 30 MG TAB.ER.24H PO SCH (14:11)
[2018-03-09] MEDS: amLODIPine 5 MG TABLET PO SCH (14:11)
--- NOTE | 2018-03-09 16:49 | Internal Med History&Physical ---
Date of Encounter: 03/09/18 Time of Encounter: 16:15 Assessment and Plan (1) Acute kidney injury superimposed on chronic kidney disease Current visit: No Status: Acute IV fluids have been started. Renal indices will be monitored. (2) Chronic renal disease, stage 5, glomerular filtration rate (GFR) less than or equal to 15 mL/min/1.73 square meter Current visit: No Status: Chronic I explained to patient and that the chronic nausea may be secondary to chronic kidney disease. He will follow with his business control manager a few days after discharge and discuss initiating dialysis. (3) Hypertension Current visit: No Status: Chronic Continue Norvasc, Imdur, and Lopressor. Will hold lisinopril and see if renal indices improve. Qualifiers: Hypertension type: essential hypertension Qualified Code(s): I10 - Essential (primary) hypertension (4) Anemia Current visit: No Status: Acute Anemia testing June 2017 showed no factor deficiency. Probably secondary to chronic kidney disease. Qualifiers: Anemia type: other cause Other causes of anemia: other cause, not classified Qualified Code(s): D64.89 - Other specified anemias (5) Diabetes Current visit: Yes Status: Chronic Hemoglobin A1c was 8.7% on 01/19/2018. Continue Levemir and Accu-Cheks with SSI. Qualifiers: Diabetes mellitus type: type 2 Diabetes mellitus transit mixer driver insulin use: with transit mixer driver use Diabetes mellitus complication status: with kidney complications Diabetes mellitus complication detail: with chronic kidney disease Chronic kidney disease stage: stage 5, not on chronic dialysis Qualified Code(s): E11.22 - Type 2 diabetes mellitus with diabetic chronic kidney disease; N18.5 - Chronic kidney disease, stage 5; Z79.4 - record maker (current) use of insulin (6) Nausea and vomiting Current visit: No Status: Acute Continue IV fluids. Give anti-emetics as needed. Qualifiers: Vomiting type: unspecified Vomiting Intractability: non-intractable Qualified Code(s): R11.2 - Nausea with vomiting, unspecified Internal Medicine - H&P: HPI Chief complaint: Vomiting, abdominal pain Admitted From: Emergency Dept Plans for Post Hospital Care: Home History of present illness: Mr. Hdz is a 58 year old male who came to emergency room stating he had onset of abdominal pain with intermittent vomiting approximately 10 days ago. He describes the abdominal pain as a "hurting" in his midabdominal area. He denies diarrhea constipation fevers chills cough sore throat or other infectious symptoms. He was evaluated in emergency room and felt to have gastritis and acute on chronic kidney failure. He was admitted to [facility] floor for ongoing care needs. He reports near chronic nausea without vomiting present for several weeks. He has known chronic kidney disease stage V and is nearing initiation of chronic dialysis. GI history is pertinent for cholecystectomy approximate 2016. He has GERD but denies disorders of his liver or exocrine pancreas. He reports an unremarkable nuclear medicine gastric emptying study several years ago. Past Med Surg Social Fam HX - Past Medical History Medical history: coronary artery disease, diabetes, GERD, hyperlipidemia, hypertension, myocardial infarction, renal disease, thyroid disease, other Additional medical history: left arm shunt Psychiatric history: depression - Past Surgical History Surgical History: angioplasty/stent, cholecystectomy, other Additional surgical history: Left Heart Cath 3 stents, Left Upper Extremity AV Shunt - Social History Smoking Status: Never smoker Smokeless Tobacco Status: No Alcohol use: none Drug use: none - Family History Mother Living Status: Still Living Hx Family Cardiac Disorders: Yes (htn) Father Living Status: Hx Family Cardiac Disorders: Yes Brother Living Status: Hx Family Cardiac Disorders: Yes Hx Family Neurologic Disorders: Yes (stroke) Internal Medicine - H&P: Meds Ranolazine [Ranexa] 1,000 mg PO BID 11/25/14 [History] Aspirin 81 mg PO DAILY 09/20/15 [History] Carbidopa/Levodopa 25/100 [Sinemet 25/100] 1 tab PO QID 09/20/15 [History] Fluticasone Propionate Nasal [Flonase] 50 mcg NS HS 09/20/15 [History] Rosuvastatin [Crestor] 40 mg PO DAILY 09/20/15 [History] Sertraline [Zoloft] 50 mg PO HS 09/20/15 [History] Metoprolol [Lopressor] 100 mg PO BID 01/22/16 [History] Subcutaneous Insulin Pump [T:Slim] 1 each MC DAILY PRN 10/01/16 [History] Clopidogrel [Plavix] 75 mg PO DAILY #30 tablet 10/02/16 [Rx] Montelukast [Singulair] 10 mg PO DAILY 02/02/17 [History] Isosorbide MONOnitrate (24 HR) [Imdur] 30 mg PO DAILY 05/10/17 [History] Levothyroxine Sodium [Levo-T] 200 mcg PO 0630 05/10/17 [History] Calcitriol 0.5 mcg PO DAILY 11/24/17 [History] Cholecalciferol (D-3) [Vitamin D] 2,000 unit PO DAILY 11/24/17 [History] Gabapentin [Neurontin] 600 mg PO HS 11/24/17 [History] Loratadine [Allergy Relief] 10 mg PO DAILY 11/24/17 [History] Nitroglycerin [Nitrostat] 0.4 mg SL Q5MIN PRN MDD [id number] CALL 911 11/24/17 [History] Insulin Glargine,Hum.rec.anlog [Lantus Solostar] 50 unit SQ AD PRN 11/25/17 [History] Lisinopril [Zestril] 40 mg PO DAILY #30 tablet 11/27/17 [Rx] amLODIPine [Norvasc] 10 mg PO DAILY #60 tablet 11/27/17 [Rx] Ondansetron ODT [Zofran ODT] 4 mg SL Q4HR PRN #15 tab.rapdis 01/09/18 [Rx] Promethazine [Phenergan] 25 mg PO Q8HR #6 tablet 02/16/18 [Rx] Allergy/AdvReac Type Severity Reaction Status Date / Time Oxycodone [From Percocet] Allergy Itching/JERI Verified 07/14/17 08:30 H All Systems PM: A 10-system review of systems was performed and is negative for pertinent findings except as documented above in the HPI. Review of systems: Review of systems from his December 2017 [facility] hospitalization were reviewed and revised as below. Gen.: His weight has minimally changed from 126.006 kg November 2013 to present weight of 120.712 kg. Cardiovascular: He has history of hypertension and known ASHD status post [place] 1995 and PTCA with 2 stents in 2012 at [facility]. He had a nuclear medicine EST 05/25/2016 which showed EKG and perfusion imaging negative for ischemia. He had an echocardiogram 09/30/2016 which showed LVEF of 55% with moderate LV diastolic dysfunction reported. The E/A ratio was 1.4. There was reported LAE without measurements recorded. There was no significant valvular dysfunction and no evidence of pulmonary hypertension. There was increased left ventricular end diastolic diameter at 6.40 cm. The interventricular septum and posterior wall thickness measurements were 0.9 and 1.0 cm respectively. A limited e chocardiogram was done 02/03/2017 without new significant findings. There is no history of DVT or pulmonary embolus. Respiratory: He is a lifelong nonsmoker has no known chronic lung disease. He has OTIS and wears BiPAP at bedtime. GI: As per history of present illness : He has chronic kidney disease stage 5 and had AV fistula placed in his left forearm as preparation for dialysis. He follows with a business control manager in [place]. He denies BPH or other kidney bladder prostate disorders Neurologic: He has been diagnosed with Parkinson's disease but denies large distribution strokes or seizures. Endocrine: He was diagnosed with DM 2 in 1986. He has DPN, hypothyroidism, and hyperlipidemia. Hematology/oncology: He denies blood disorders or cancers. He does have anemia probably secondary to chronic kidney disease. Anemia testing during June 2017 hospitalization showed no factor deficiency. Psychiatric: He has anxiety and depression but denies other mental health issues [place] skeletal: He has DJD and vitamin D deficiency but no known gout or osteoporosis. - Constitutional Vitals: Temp Pulse Resp BP Pulse Ox 98.5 F 93 18 133/84 89 03/09/18 10:17 03/09/18 10:17 03/09/18 10:17 03/09/18 10:17 03/09/18 10:17 Exam: Gen.: He is a well-developed well-nourished male resting in bed who appears in mild distress with dry heaving and vomiting during examination HEENT: Head is atraumatic and normocephalic. Eyes: EOMI. There is no scleral icterus. Mouth: Mucosa is moist. Neck: Supple and nontender. There is no thyromegaly or adenopathy noted. Heart: Regular without murmurs gallops or ectopics Lungs: No wheezes or crackles are heard. Abdomen: Bowel sounds are diminished. There is no mass guarding or tenderness. Extremities: IV is infusing in the right lower leg. Dorsalis pedis and p osttibial pulses are trace palpable bilaterally. There is no edema. Neurologic: Mental status: He is talkative and a good historian. Cranial nerves: Smile is symmetric. Panchal wrinkles bilaterally. Tongue protrudes midline. EOMI. Motor: There is no pronator drift. Cerebellar: Finger to nose is intact bilaterally. Skin: Warm and dry Internal Med - H&P Results - Labs CBC & Chem 7: 03/09/18 02:45 03/09/18 02:45 Labs: Short CBC 03/09/18 Range/Units 02:45 WBC 9.1 (4.3-11.1) K/mcL Hgb 12.2 L (12.9-16.9) g/dL Hct 38.9 (37.5-50.1) % Plt Count 265 (140-400) K/mcL Neutrophils # 6.2 (1.6-8.9) K/mcL BMP 03/09/18 02:45 Sodium 141 Potassium 4.9 Chloride 106 Carbon Dioxide 21 L BUN 54 H Creatinine 5.52 H Glucose 156 H Calcium 9.6 Liver Function 03/09/18 Range/Units 02:45 Total Bilirubin 0.6 (0.3-1.0) mg/dL Direct Bilirubin 0.2 (0.0-0.2) mg/dL AST 17 (13-39) Units/L ALT 9 (7-52) Units/L Alkaline Phosphatase 94 (34-104) Units/L Albumin 3.8 (3.5-5.7) g/dL Urine 03/09/18 Range/Units 11:53 Urine Color Yellow (Yellow) Urine Clarity Clear (Clear) Urine pH 5.0 (5.0-8.0) pH Units Ur Specific [place] 1.020 (1.010-1.025) Urine Protein 100 H (Neg-Trace) mg/dL Urine Glucose (UA) 100 H (Normal) mg/dL - Impressions ITS Impressions Abdomen/Pelvis CT 03/09/18 01:51 IMPRESSION: Nonspecific fat stranding adjacent to the right psoas muscle and external iliac artery. Otherwise negative study. D/ / Eugene Del Cid MD / Eugene Del Cid MD Interpreting Provider: Eugene Del Cid MD
[2018-03-09] MEDS: Gabapentin 300 MG CAPSULE PO SCH (21:29)
[2018-03-09] MEDS: Fluticasone Propionate Nasal 50 MCG/SPRAY BOTTLE NS SCH (21:30)
[2018-03-10 09:31] LABS: Basophils # 0.1 K/mcL (0.0-0.2); Basophils % 0.5 %; Eosinophils # 0.4 K/mcL (0.0-0.6); Eosinophils % 3.7 %; Hematocrit 34.2 % (37.5-50.1); Hemoglobin 10.9 g/dL (12.9-16.9); Immature Granulocytes % 1.1 % (0-4); Lymphocytes # 2.2 K/mcL (0.6-4.6); Lymphocytes % 23.2 %; Mean Corpuscular HGB Conc 31.9 g/dL (31.6-35.5); Mean Corpuscular Volume 84.9 fL (83.0-100.0); Mean Platelet Volume 9.7 fL (9.4-12.4); Monocytes # 0.9 K/mcL (0.0-1.3); Neutrophils # 5.8 K/mcL (1.6-8.9); Platelet Count 298 K/mcL (140-400); Red Blood Count 4.03 M/mcL (4.19-5.50); Red Cell Distribution Width 14.5 % (11.5-14.5); Segmented Neutrophils % 61.5 %
[2018-03-10] MEDS: Carbidopa/Levodopa 25/100 TABLET PO SCH ×4 (09:35→20:10)
[2018-03-10] MEDS: Ranolazine 500 MG TAB.ER.12H PO SCH ×2 (09:35→20:09)
[2018-03-10] MEDS: Cholecalciferol (D-3) 1,000 UNIT TABLET PO SCH (09:35)
[2018-03-10] MEDS: amLODIPine 5 MG TABLET PO SCH (09:38)
[2018-03-10] MEDS: Aspirin 81 MG TAB.CHEW PO SCH (09:39)
[2018-03-10] MEDS: Isosorbide MONOnitrate (24 HR) 30 MG TAB.ER.24H PO SCH (09:39)
[2018-03-10 09:51] LABS: Calcium 8.9 mg/dL (8.6-10.3); Potassium 4.4 mEq/L (3.5-5.1)
[2018-03-10 10:35] LABS: Thyroid Stimulating Hormone 240.94 mcIU/mL (0.340-5.600)
--- NOTE | 2018-03-10 11:26 | Internal Med Progress Note ---
Date of Encounter: 03/10/18 Time of Encounter: 11:15 - Assessment and plan (1) Acute kidney injury superimposed on chronic kidney disease Current Visit: No Status: Acute Assessment and plan: March 10. Renal indices slightly improved. Continue present treatment. (2) Chronic renal disease, stage 5, glomerular filtration rate (GFR) less than or equal to 15 mL/min/1.73 square meter Current Visit: No Status: Chronic Assessment and plan: March 10. As above. (3) Hypertension Current Visit: No Status: Chronic Assessment and plan: March 10. Continue Norvasc, Imdur, and Lopressor. Remain off lisinopril. Qualifiers: Hypertension type: essential hypertension Qualified Code(s): I10 - Essential (primary) hypertension (4) Anemia Current Visit: No Status: Acute Assessment and plan: March 10. Anemia testing June 2017 showed no fracture deficiency. Probably secondary to chronic kidney disease. Qualifiers: Anemia type: other cause Other causes of anemia: other cause, not classified Qualified Code(s): D64.89 - Other specified anemias (5) Diabetes Current Visit: Yes Status: Chronic Assessment and plan: March 10. Hemoglobin A1c was 8.7% on 01/19/2018. Continue Levemir and Accu-Cheks with SSI. Qualifiers: Diabetes mellitus type: type 2 Diabetes mellitus long term care administrator insulin use: with long term care administrator use Diabetes mellitus complication status: with kidney complications Diabetes mellitus complication detail: with chronic kidney disease Chronic kidney disease stage: stage 5, not on chronic dialysis Qualified Code(s): E11.22 - Type 2 diabetes mellitus with diabetic chronic kidney disease; N18.5 - Chronic kidney disease, stage 5; Z79.4 - long term care administrator (current) use of insulin (6) Nausea and vomiting Current Visit: No Status: Acute Assessment and plan: March 10. Improved. Continue present regimen. Qualifiers: Vomiting type: unspecified Vomiting Intractability: non-intractable Qualified Code(s): R11.2 - Nausea with vomiting, unspecified (7) Hypothyroidism Current Visit: No Status: Chronic Assessment and plan: March 10. TSH returned significantly elevated at 240.940. He reports he is not regularly taking Synthroid. I explained the importance of taking it regularly. Qualifiers: Hypothyroidism type: unspecified Qualified Code(s): E03.9 - Hypothyroidism, unspecified - Subjective Interval history: March 10. He has no new complaints and feels better. He reports he has had no further vomiting since I saw him yesterday. - Constitutional Vitals: Temp Pulse Resp BP Pulse Ox 98.4 F 69 18 173/83 93 03/10/18 10:00 03/10/18 10:00 03/10/18 10:00 03/10/18 10:00 03/10/18 10:00 Exam: He is resting comfortably in bed and appears in no acute distress. His affect is bright and cheerful. I reviewed his medications and lab results. Internal Medicine: Result - Labs CBC & Chem 7: 03/10/18 09:23 03/10/18 09:23 Labs: Short CBC 03/10/18 Range/Units 09:23 WBC 9.4 (4.3-11.1) K/mcL Hgb 10.9 L (12.9-16.9) g/dL Hct 34.2 L (37.5-50.1) % Plt Count 298 (140-400) K/mcL Neutrophils # 5.8 (1.6-8.9) K/mcL BMP 03/10/18 09:23 Sodium 141 Potassium 4.4 Chloride 107 Carbon Dioxide 23 BUN 49 H Creatinine 5.15 H Glucose 135 H Calcium 8.9 Urine 03/09/18 Range/Units 11:53 Urine Color Yellow (Yellow) Urine Clarity Clear (Clear) Urine pH 5.0 (5.0-8.0) pH Units Ur Specific Hardy 1.020 (1.010-1.025) Urine Protein 100 H (Neg-Trace) mg/dL Urine Glucose (UA) 100 H (Normal) mg/dL - ABG Interpretation ABG results: PT/INR, D-dimer PT 12.4 Seconds (9.4-12.1) H 03/09/18 03:50 Consult Discharge Plan - Plan Referrals: Sangita Macias DO [Primary Care Provider] - 1 week
[2018-03-10] MEDS: Gabapentin 300 MG CAPSULE PO SCH (20:09)
[2018-03-10] MEDS: Fluticasone Propionate Nasal 50 MCG/SPRAY BOTTLE NS SCH (20:19)
[2018-03-10] MEDS: Ondansetron ODT 4 MG TAB.RAPDIS SL PRN (21:39)
[2018-03-11] MEDS: Ondansetron ODT 4 MG TAB.RAPDIS SL PRN (08:10)
[2018-03-11 08:20] VITALS: BP 150/81
[2018-03-11] MEDS: *HR* Promethazine 25 MG/ML VIAL IVP PRN (09:18)
--- NOTE | 2018-03-11 09:31 | Discharge Summary ---
Date of Encounter: 03/11/18 Time of Encounter: 09:22 - Discharge Diagnosis (1) Acute kidney injury superimposed on chronic kidney disease Priority: Primary Status: Acute (2) Chronic renal disease, stage 5, glomerular filtration rate (GFR) less than or equal to 15 mL/min/1.73 square meter Priority: Secondary Status: Chronic (3) Hypertension Priority: Secondary Status: Chronic Qualifiers: Hypertension type: essential hypertension Qualified Code(s): I10 - E ssential (primary) hypertension (4) Anemia Priority: Secondary Status: Acute Qualifiers: Anemia type: other cause Other causes of anemia: other cause, not classified Qualified Code(s): D64.89 - Other specified anemias (5) Diabetes Priority: Secondary Status: Chronic Qualifiers: Diabetes mellitus type: type 2 Diabetes mellitus shelter insulin use: with shelter use Diabetes mellitus complication status: with kidney complications Diabetes mellitus complication detail: with chronic kidney disease Chronic kidney disease stage: stage 5, not on chronic dialysis Qualified Code(s): E11.22 - Type 2 diabetes mellitus with diabetic chronic kidney disease; N18.5 - Chronic kidney disease, stage 5; Z79.4 - deicer finisher (current) use of insulin (6) Nausea and vomiting Priority: Secondary Status: Acute Qualifiers: Vomiting type: unspecified Vomiting Intractability: non-intractable Qualified Code(s): R11.2 - Nausea with vomiting, unspecified (7) Hypothyroidism Priority: Secondary Status: Chronic Qualifiers: Hypothyroidism type: unspecified Qualified Code(s): E03.9 - Hypothyroidism, unspecified Hospital course: Mr. Hdz is a 58 year old male who came to emergency room stating he had onset of abdominal pain with intermittent vomiting approximately 10 days ago. He describes the abdominal pain as a "hurting" in his midabdominal area. He denies diarrhea constipation fevers chills cough sore throat or other infectious symptoms. He was evaluated in emergency room and felt to have gastritis and acute on chronic kidney failure. He was admitted to [facility] for ongoing care needs. Initial orders were written by the emergency room physician. I saw him on March 09 and performed a history and physical. He was given IV fluids. Lisinopril was held during hospitalization. Follow-up labs on March 10 showed creatinine slightly decreased to 5.15 with estimated GFR 12. His nausea had improved when I saw him on March 10. He stated he had recurrent nausea after taking Synthroid the morning of March 11. I told him he should discuss with his gas turbine powerplant mechanic helper about initiation of dialysis to see if nausea would lessen. TSH returned significantly elevated at 240.940. He admitted he had not been taking Synthroid regularly at home. He will restart medication a dose of 100 mg daily for a few days then increase to 200 g daily if nausea is not occurring. His PCP can monitor labs. On March 11 I felt he was stable for discharge home. He will follow with his PCP Dr. Sangita Macias within 1 week. He will follow with his gas turbine powerplant mechanic helper in a few weeks as scheduled or sooner if needed. - Time Spent with Patient Total time spent providing and/or coordinating discharge services: - Discharge Medications Home Medications: Ranolazine [Ranexa] 1,000 mg PO BID 11/25/14 [History] Aspirin 81 mg PO DAILY 09/20/15 [History] Carbidopa/Levodopa 25/100 [Sinemet 25/100] 1 tab PO QID 09/20/15 [History] Fluticasone Propionate Nasal [Flonase] 50 mcg NS HS 09/20/15 [History] Rosuvastatin [Crestor] 40 mg PO DAILY 09/20/15 [History] Sertraline [Zoloft] 50 mg PO HS 09/20/15 [History] Metoprolol [Lopressor] 100 mg PO BID 01/22/16 [History] Subcutaneous Insulin Pump [T:Slim] 1 each MC DAILY PRN 10/01/16 [History] Clopidogrel [Plavix] 75 mg PO DAILY #30 tablet 10/02/16 [Rx] Montelukast [Singulair] 10 mg PO DAILY 02/02/17 [History] Isosorbide MONOnitrate (24 HR) [Imdur] 30 mg PO DAILY 05/10/17 [History] Levothyroxine Sodium [Levo-T] 200 mcg PO 0630 05/10/17 [History] Calcitriol 0.5 mcg PO DAILY 11/24/17 [History] Cholecalciferol (D-3) [Vitamin D] 2,000 unit PO DAILY 11/24/17 [History] Gabapentin [Neurontin] 600 mg PO HS 11/24/17 [History] Loratadine [Allergy Relief] 10 mg PO DAILY 11/24/17 [History] Nitroglycerin [Nitrostat] 0.4 mg SL Q5MIN PRN MDD [id number] CALL 911 11/24/17 [History] Insulin Glargine,Hum.rec.anlog [Lantus Solostar] 50 unit SQ AD PRN 11/25/17 [History] Lisinopril [Zestril] 40 mg PO DAILY #30 tablet 11/27/17 [Rx] amLODIPine [Norvasc] 10 mg PO DAILY #60 tablet 11/27/17 [Rx] Ondansetron ODT [Zofran ODT] 4 mg SL Q4HR PRN #15 tab.rapdis 01/09/18 [Rx] Promethazine [Phenergan] 25 mg PO Q8HR #6 tablet 02/16/18 [Rx] Allergies/Adverse Reactions: Allergy/AdvReac Type Severity Reaction Status Date / Time Oxycodone [From Percocet] Allergy Itching/JERI Verified 07/14/17 08:30 H Date of admission: 03/09/18 05:00 Primary care physician: Sangita Macias DO - Constitutional Vitals: Temp Pulse Resp BP Pulse Ox 98.6 F 59 18 150/81 98 03/11/18 07:18 03/11/18 07:18 03/11/18 07:18 03/11/18 08:00 03/11/18 07:18 - Patient Status Disposition: Home, Self-Care Condition: Good - Discharge Instructions Follow Up With: Sangita Macias DO [Primary Care Provider] - 1 week - Diet and Activity Activity: resume usual activities as tolerated Diet: diabetic diet
[2018-03-11] MEDS: Carbidopa/Levodopa 25/100 TABLET PO SCH (10:05)
[2018-03-11] MEDS: Cholecalciferol (D-3) 1,000 UNIT TABLET PO SCH (10:05)
[2018-03-11] MEDS: Isosorbide MONOnitrate (24 HR) 30 MG TAB.ER.24H PO SCH (10:05)
[2018-03-11] MEDS: Aspirin 81 MG TAB.CHEW PO SCH (10:05)
[2018-03-11] MEDS: Ranolazine 500 MG TAB.ER.12H PO SCH (10:06)
[2018-03-11] MEDS: amLODIPine 5 MG TABLET PO SCH (10:06)
--- NOTE | 2018-03-12 09:05 | Electrocardiograph Report ---
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
== END 2018-03-11 10:40 | disposition home or self-care (01) ==
LOC: INPPIK 01:37 → EMEROOPIK 01:37 → INPPIK 05:22
PROVIDERS: ADMIT Internal Medicine; ATTEND Internal Medicine

== ENCOUNTER 2018-05-12 12:08 | Inpatient (IN) ==
[2018-05-12] MEDS ORDERED: Nitroglycerin 0.4 MG TAB.SUBL SL PRN (14:17)
[2018-05-12] MEDS ORDERED: NON-FORMULARY MEDICATION 1 EACH EACH (Subcutaneous Insulin Pump [T:Slim] 1 EACH) MC SCH (14:30)
[2018-05-12] MEDS: Carbidopa/Levodopa 25/100 TABLET PO SCH ×2 (16:24→20:00)
[2018-05-12] MEDS: [UNRECOGNIZED DRUG - OTHER] SQ SCH (16:24)
[2018-05-12] MEDS: Fluticasone Propionate Nasal 50 MCG/SPRAY BOTTLE NS SCH (20:00)
[2018-05-12] MEDS: Gabapentin 300 MG CAPSULE PO SCH (20:00)
[2018-05-12] MEDS: Ranolazine 500 MG TAB.ER.12H PO SCH (20:00)
[2018-05-12] MEDS: *HR* HYDROcodone/Acet 5/325 mg TABLET PO PRN (22:33)
[2018-05-13] MEDS: Ondansetron ODT 4 MG TAB.RAPDIS SL PRN (07:52)
[2018-05-13] MEDS: Cholecalciferol (D-3) 1,000 UNIT TABLET PO SCH (08:40)
[2018-05-13] MEDS: Aspirin 81 MG TAB.CHEW PO SCH (08:40)
[2018-05-13] MEDS: Carbidopa/Levodopa 25/100 TABLET PO SCH ×4 (08:40→20:20)
[2018-05-13] MEDS: Ranolazine 500 MG TAB.ER.12H PO SCH ×2 (08:40→20:20)
[2018-05-13] MEDS: *HR* HYDROcodone/Acet 5/325 mg TABLET PO PRN ×3 (08:41→20:21)
[2018-05-13] MEDS: Loratadine 10 MG TABLET PO SCH (08:41)
[2018-05-13] MEDS: [UNRECOGNIZED DRUG - OTHER] SQ SCH (13:19)
--- NOTE | 2018-05-13 15:52 | Internal Med History&Physical ---
Date of Encounter: 05/13/18 Time of Encounter: 15:20 Assessment and Plan (1) Orthostatic hypotension Current visit: No Status: Acute Check orthostatic vital signs in a.m. Not presently taking midodrine (2) Hypertension Current visit: No Status: Chronic Not presently taking antihypertensive medication. Continue to monitor. Qualifiers: Hypertension type: essential hypertension Qualified Code(s): I10 - Essential (primary) hypertension (3) Diabetes Current visit: No Status: Chronic Hemoglobin A1c was 9.0% on 04/25/2018. Continue Accu-Cheks with SSI. Qualifiers: Diabetes mellitus type: type 2 Diabetes mellitus ferry terminal agent insulin use: with senior care use Diabetes mellitus complication status: with kidney complications Diabetes mellitus complication detail: with chronic kidney disease Chronic kidney disease stage: stage 5, not on chronic dialysis Qualified Code(s): E11.22 - Type 2 diabetes mellitus with diabetic chronic kidney disease; N18.5 - Chronic kidney disease, stage 5; Z79.4 - retirement (current) use of insulin (4) Hypothyroidism Current visit: No Status: Chronic TSH was significantly elevated at 162.640 on 03/24/2018. Recheck in a.m. Qualifiers: Hypothyroidism type: unspecified Qualified Code(s): E03.9 - Hypothyroidism, unspecified (5) Hyperuricemia Current visit: No Status: Chronic Uric acid was elevated at 8.9 on 01/08/2018. Recheck in a.m. (6) L1 vertebral fracture Current visit: No Status: Acute No surgical intervention planned. Continue analgesics and therapy. Qualifiers: Encounter type: initial encounter Fracture type: closed Fracture morphology: unspecified fracture morphology Qualified Code(s): S32.019A - Unspecified fracture of first lumbar vertebra, initial encounter for closed fracture (7) ESRD (end stage renal disease) on dialysis Current visit: No Status: Chronic Continue MWF hemodialysis. (8) Anemia Current visit: No Status: Chronic Suspect due primarily to chronic kidney disease. Check anemia testing in a.m. Qualifiers: Anemia type: unspecified type Qualified Code(s): D64.9 - Anemia, unspecified Internal Medicine - H&P: HPI Chief complaint: Syncope, right ankle fracture Admitted From: Hospital to Hospital Transfer Plans for Post Hospital Care: Home History of present illness: Mr. Hdz is a 58 year old male who was hospitalized at [facility] May 05 after presenting with multiple syncopal episodes at home. He had fallen May 05 sustaining a right ankle fracture. He had L1 vertebral fracture also from a previous fall. He was stabilized and discharged to [facility] swing bed for rehabilitation therapy prior to returning to independent living. Past Med Surg Social Fam HX - Past Medical History Medical history: coronary artery disease, diabetes, GERD, hyperlipidemia, hypertension, myocardial infarction, renal disease, thyroid disease, other Additional medical history: left arm shunt, fatty liver disease Psychiatric history: depression - Past Surgical History Surgical History: angioplasty/stent, cholecystectomy, other Additional surgical history: Left Heart Cath 3 stents, Left Upper Extremity AV Shunt - Social History Smoking Status: Never smoker Smokeless Tobacco Status: No Alcohol use: none Drug use: none - Family History Mother Adopted: No Living Status: Still Living Hx Family Cardiac Disorders: Yes (dad and brother massive stroke) Hx Family Respiratory Disorders: No Hx Family Cancer: Yes Hx Family GI Disorders: No Hx Family Endocrine Disorder: No Hx Family Neuromuscular Disorders: No Hx Family Neurologic Disorders: No Hx Family HEENT Disorders: No Hx Family Autoimmune Disorders: No Father Living Status: Hx Family Cardiac Disorders: Yes Brother Living Status: Hx Family Cardiac Disorders: Yes Hx Family Neurologic Disorders: Yes (stroke) Internal Medicine - H&P: Meds Ranolazine [Ranexa] 1,000 mg PO BID 11/25/14 [History] Aspirin 81 mg PO DAILY 09/20/15 [History] Carbidopa/Levodopa 25/100 [Sinemet 25/100] 1 tab PO 0800,1200,1600,2000 09/20/15 [History] Fluticasone Propionate Nasal [Flonase] 50 mcg NS HS 09/20/15 [History] Rosuvastatin [Crestor] 40 mg PO DAILY 09/20/15 [History] Sertraline [Zoloft] 50 mg PO HS 09/20/15 [History] Clopidogrel [Plavix] 75 mg PO DAILY #30 tablet 10/02/16 [Rx] Montelukast [Singulair] 10 mg PO DAILY 02/02/17 [History] Levothyroxine Sodium [Levo-T] 200 mcg PO 0630 05/10/17 [History] Calcitriol 0.5 mcg PO DAILY 11/24/17 [History] Cholecalciferol (D-3) [Vitamin D] 2,000 unit PO DAILY 11/24/17 [History] Loratadine [Allergy Relief] 10 mg PO DAILY 11/24/17 [History] Nitroglycerin [Nitrostat] 0.4 mg SL Q5MIN PRN MDD [id number] CALL 911 11/24/17 [History] Ondansetron ODT [Zofran ODT] 4 mg SL Q4HR PRN #15 tab.rapdis 01/09/18 [Rx] Pantoprazole Sodium [Protonix] 40 mg PO BID 04/25/18 [History] hydrOXYzine HCl [Hydroxyzine HCl] 50 mg PO HS PRN 04/25/18 [History] Docusate [Colace] 100 mg PO BID PRN 05/05/18 [History] Polyethylene Glycol 3350 [MiraLAX] 17 gm PO DAILY PRN 05/05/18 [History] Subcutaneous Insulin Pump [T:Slim] 1 each MC AD MDD 170 UNIT 05/08/18 [History] Gabapentin [Neurontin] 600 mg PO HS 3 Days #3 tablet 05/11/18 [Rx] Patient Taking Own Medication 1 each SQ AD each 05/11/18 [Rx] Allergy/AdvReac Type Severity Reaction Status Date / Time codeine Allergy Rash Verified 05/08/18 13:54 All Systems PM: A 10-system review of systems was performed and is negative for pertinent findings except as documented above in the HPI. Review of systems: Review of systems from his February 2018 [facility] hospitalization were reviewed and revised as below. Gen.: His weight has minimally changed from 126.006 kg November 2013 to present weight of 119.748 kg. Cardiovascular: He has history of hypertension and known ASHD status post [place] 1995 and PTCA with 2 stents in 2012 at [facility]. He had a nuclear medicine EST 04/29/2018 which showed perfusion imaging negative for ischemia. EKG was nondiagnostic for ischemia due to baseline nonspecific ST-T abnormalities. LVEF was 50%. There was a medium size severe intensity fixed perfusion defect in the inferior and inferior lateral abarca consistent with infarct. He had an echocardiogram 04/25/2018 which showed LVEF of 65-70%. No significant valvular abnormalities were seen. Mid ventricular septum and posterior wall thickness measurements were 1.43 and 1.40 cm respectively. There is no history of DVT or pulmonary embolus. Respiratory: He is a lifelong nonsmoker has no known chronic lung disease. He has OTIS and wears BiPAP at bedtime. GI: He had cholecystectomy approximate 2016. He has GERD but denies disorders of his liver or exocrine pancreas. He reports an unremarkable nuclear medicine gastric emptying study several years ago. : He has chronic kidney disease stage 5 and has been on MWF hemodialysis for approximately 2-1/2 weeks. He follows with a collections professional in [place]. He denies BPH or other kidney bladder prostate disorders Neurologic: He has been diagnosed with Parkinson's disease but denies large distribution strokes or seizures. Endocrine: He was diagnosed with DM 2 in 1986. He has DPN, hypothyroidism, and hyperlipidemia. Hematology/oncology: He denies blood disorders or cancers. He does have anemia probably secondary to chronic kidney disease. Anemia testing during June 2017 hospitalization showed no factor deficiency. Psychiatric: He has anxiety and depression but denies other mental health issues [place] skeletal: He has DJD and vitamin D deficiency but no known gout or osteoporosis. - Constitutional Vitals: Temp Pulse Resp BP Pulse Ox 98.5 F 74 18 112/69 92 05/13/18 07:39 05/13/18 07:39 05/13/18 07:39 05/13/18 07:39 05/13/18 07:39 Exam: Gen.: He is a well-developed well-nourished male lying in bed who appears in no acute distress HEENT: Head is atraumatic and normocephalic. Eyes: EOMI. There is no scleral icterus. Mouth: Mucosa is moist. Neck: Supple and nontender. There is no thyromegaly or adenopathy noted. Heart: Regular without murmurs gallops or ectopics Lungs: No wheezes or crackles are heard. Abdomen: Soft and nontender. No masses or guarding are noted. Extremities: There is no cyanosis edema or clubbing noted of the left leg. The right lower leg and foot are wrapped in an immobilization splint with elastic wrap which I did not remove. Dorsalis pedis and posterior tibial pulses on the left leg are trace palpable. Neurologic: Mental status: He is talkative and a good historian. Cranial nerves: Smile is symmetric. Forehead wrinkles bilaterally. Tongue protrudes midline. EOMI. Motor: There is no pronator drift. Cerebellar: Finger to nose is intact bilaterally. Skin: Warm and dry
[2018-05-13] MEDS: Gabapentin 300 MG CAPSULE PO SCH (20:20)
[2018-05-13] MEDS: Fluticasone Propionate Nasal 50 MCG/SPRAY BOTTLE NS SCH (20:23)
[2018-05-14 05:35] LABS: Uric Acid 5.5 mg/dL (2.3-7.6)
[2018-05-14 06:14] LABS: Thyroid Stimulating Hormone 309.85 mcIU/mL (0.340-5.600)
[2018-05-14] MEDS: Ondansetron ODT 4 MG TAB.RAPDIS SL PRN ×2 (06:39→16:19)
[2018-05-14] MEDS: Carbidopa/Levodopa 25/100 TABLET PO SCH ×4 (07:24→20:40)
[2018-05-14] MEDS: Loratadine 10 MG TABLET PO SCH (07:24)
[2018-05-14] MEDS: Aspirin 81 MG TAB.CHEW PO SCH (07:24)
[2018-05-14] MEDS: Ranolazine 500 MG TAB.ER.12H PO SCH ×2 (07:25→20:38)
[2018-05-14] MEDS: Cholecalciferol (D-3) 1,000 UNIT TABLET PO SCH (07:25)
[2018-05-14] MEDS: *HR* HYDROcodone/Acet 5/325 mg TABLET PO PRN ×2 (07:26→20:39)
[2018-05-14 10:36] LABS: % Iron Saturation 14 % (20-55); Iron 38 mcg/dL (65-175); Transferrin 201 mg/dL (203-362)
[2018-05-14 10:54] LABS: Ferritin 227 ng/mL (20-250)
--- NOTE | 2018-05-14 11:05 | Internal Med Progress Note ---
Date of Encounter: 05/14/18 Time of Encounter: 10:55 - Assessment and plan (1) Orthostatic hypotension Current Visit: No Status: Acute Assessment and plan: May 14. He denies orthostatic vital signs being done today. Will check in a.m. (2) Hypertension Current Visit: No Status: Chronic Assessment and plan: May 14. Not presently taking anti-hypertensive medication. Continue to monitor. Qualifiers: Hypertension type: essential hypertension Qualified Code(s): I10 - Essential (primary) hypertension (3) Diabetes Current Visit: No Status: Chronic Assessment and plan: May 14. Hemoglobin A1c was 9.0% on 04/25/2018. Continue Accu-Cheks with SSI. Qualifiers: Diabetes mellitus type: type 2 Diabetes mellitus salvage determiner insulin use: with salvage determiner use Diabetes mellitus complication status: with kidney complications Diabetes mellitus complication detail: with chronic kidney disease Chronic kidney disease stage: stage 5, not on chronic dialysis Qualified Code(s): E11.22 - Type 2 diabetes mellitus with diabetic chronic kidney disease; N18.5 - Chronic kidney disease, stage 5; Z79.4 - long-term (current) use of insulin (4) Hypothyroidism Current Visit: No Status: Chronic Assessment and plan: May 14. TSH further elevated at 309.85. He states he has been taking Synthroid at home as prescribed. Check T4 and T3 levels in a.m. Qualifiers: Hypothyroidism type: unspecified Qualified Code(s): E03.9 - Hypothyroidism, unspecified (5) Hyperuricemia Current Visit: No Status: Chronic Assessment and plan: May 14. Uric acid level normal at 5.5. (6) L1 vertebral fracture Current Visit: No Status: Acute Assessment and plan: May 14. Continue analgesics and therapy. Qualifiers: Encounter type: initial encounter Fracture type: closed Fracture morphology: unspecified fracture morphology Qualified Code(s): S32.019A - Unspecified fracture of first lumbar vertebra, initial encounter for closed fracture (7) ESRD (end stage renal disease) on dialysis Current Visit: No Status: Chronic Assessment and plan: May 14. Continue MWF hemodialysis. (8) Anemia Current Visit: No Status: Chronic Assessment and plan: May 14. Anemia testing showed iron 38, transferrin saturation 14%, transferrin 201, ferritin 227, B12 358, and folate 6.0. Start ferrous sulfate with ascorbic acid in a.m. Qualifiers: Anemia type: unspecified type Qualified Code(s): D64.9 - Anemia, unspecified - Subjective Interval history: May 14. He complains of nausea and slightly loose stools. He states he has constant pain in his right ankle from the fracture. - Constitutional Vitals: Temp Pulse Resp BP Pulse Ox 98.3 F 75 16 125/74 92 05/14/18 04:47 05/14/18 04:47 05/14/18 04:47 05/14/18 04:47 05/14/18 04:47 Exam: He is resting comfortably in bed and appears in no acute distress. His affect is overall cheerful. I reviewed his medications and lab results. Consult Discharge Plan - Plan Referrals: NONE,PCP [Primary Care Provider] - 1 week
[2018-05-14] MEDS ORDERED: *HR* Promethazine 25 MG/ML VIAL IM PRN (11:09)
[2018-05-14] MEDS: Acetaminophen 325 MG TABLET PO SCH ×2 (12:50→18:02)
[2018-05-14] MEDS: [UNRECOGNIZED DRUG - OTHER] SQ SCH (12:52)
[2018-05-14] MEDS: Gabapentin 300 MG CAPSULE PO SCH (20:38)
[2018-05-14] MEDS: Fluticasone Propionate Nasal 50 MCG/SPRAY BOTTLE NS SCH (20:39)
[2018-05-15] MEDS: Acetaminophen 325 MG TABLET PO SCH ×4 (00:59→18:11)
[2018-05-15] MEDS: Ondansetron ODT 4 MG TAB.RAPDIS SL PRN ×3 (03:16→18:11)
[2018-05-15] MEDS: Ascorbic Acid 500 MG TABLET PO SCH (07:56)
[2018-05-15] MEDS: Loratadine 10 MG TABLET PO SCH (07:56)
[2018-05-15] MEDS: Aspirin 81 MG TAB.CHEW PO SCH (07:56)
[2018-05-15] MEDS: Cholecalciferol (D-3) 1,000 UNIT TABLET PO SCH (07:57)
[2018-05-15] MEDS: Ranolazine 500 MG TAB.ER.12H PO SCH ×2 (07:57→21:00)
[2018-05-15] MEDS: Carbidopa/Levodopa 25/100 TABLET PO SCH ×4 (07:58→21:05)
[2018-05-15 09:05] LABS: Triiodothyronine (T3) Free 1.79 pg/mL (2.50-3.90)
[2018-05-15] MEDS: [UNRECOGNIZED DRUG - OTHER] SQ SCH (14:29)
[2018-05-15] MEDS: *HR* HYDROcodone/Acet 5/325 mg TABLET PO PRN (17:08)
--- NOTE | 2018-05-15 17:44 | Internal Med Progress Note ---
Date of Encounter: 05/15/18 Time of Encounter: 17:30 - Assessment and plan (1) Orthostatic hypotension Current Visit: No Status: Acute Assessment and plan: May 14. He denies orthostatic vital signs being done today. Will check in a.m. May 15. Orthostatic vital signs reviewed. Continue to monitor. (2) Hypertension Current Visit: No Status: Chronic Assessment and plan: May 14. Not presently taking anti-hypertensive medication. Continue to monitor. Qualifiers: Hypertension type: essential hypertension Qualified Code(s): I10 - Essential (primary) hypertension (3) Diabetes Current Visit: No Status: Chronic Assessment and plan: May 14. Hemoglobin A1c was 9.0% on 04/25/2018. Continue Accu-Cheks with SSI. May 15. Accu-Chek show significant fluctuation. Continue to monitor. 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 TSH further elevated at 309.85. He states he has been taking Synthroid at home as prescribed. Check T4 and T3 levels in a.m. May 15. Free T4 and free T3 are both low at 0.53 ng/dl and 1.79 pg/mL respectively. Increase Synthroid to 300 g daily. Qualifiers: Hypothyroidism type: unspecified Qualified Code(s): E03.9 - Hypothyroidism, unspecified (5) Hyperuricemia Current Visit: No Status: Chronic Assessment and plan: May 14. Uric acid level normal at 5.5. (6) L1 vertebral fracture Current Visit: No Status: Acute Assessment and plan: May 14. Continue analgesics and therapy. Qualifiers: Encounter type: initial encounter Fracture type: closed Fracture morphology: unspecified fracture morphology Qualified Code(s): S32.019A - Unspecified fracture of first lumbar vertebra, initial encounter for closed fracture (7) ESRD (end stage renal disease) on dialysis Current Visit: No Status: Chronic Assessment and plan: May 14. Continue MWF hemodialysis. (8) Anemia Current Visit: No Status: Chronic Assessment and plan: May 14. Anemia testing showed iron 38, transferrin saturation 14%, transferrin 201, ferritin 227, B12 358, and folate 6.0. Start ferrous sulfate with ascorbic acid in a.m. Qualifiers: Anemia type: unspecified type Qualified Code(s): D64.9 - Anemia, unspecified (9) Ankle fracture, right Current Visit: Yes Status: Acute Assessment and plan: May 15. Continue analgesics. Follow up with orthopedist as directed. Qualifiers: Encounter type: subsequent encounter Fracture type: closed Fracture healing: with routine healing Qualified Code(s): S82.891D - Other fracture of right lower leg, subsequent encounter for closed fracture with routine healing (10) Abdominal discomfort Current Visit: Yes Status: Acute Assessment and plan: May 15. Order KUB and labs to further evaluate. - Subjective Interval history: May 14. He complains of nausea and slightly loose stools. He states he has constant pain in his right ankle from the fracture. May 15. He complains of ongoing nausea and has had vomiting today. He states his stools are still loose. - Constitutional Vitals: Temp Pulse Resp BP Pulse Ox 98.2 F 82 18 112/68 93 05/15/18 06:41 05/15/18 11:04 05/15/18 06:41 05/15/18 11:04 05/15/18 06:41 Exam: He has lying in bed and appears in mild discomfort. Abdomen shows bowel sounds present and slightly high-pitched. There are no masses or guarding on palpation. I reviewed his medications and lab results. Consult Discharge Plan - Plan Referrals: NONE,PCP [Primary Care Provider] - 1 week
[2018-05-15] MEDS ORDERED: traMADol 50 MG TABLET PO PRN (17:52)
[2018-05-15 18:31] LABS: Basophils % 0.4 %; Eosinophils # 0.2 K/mcL (0.0-0.6); Eosinophils % 2.1 %; Hematocrit 27.5 % (37.5-50.1); Hemoglobin 8.7 g/dL (12.9-16.9); Immature Granulocytes % 4.1 % (0-4); Lymphocytes # 1.4 K/mcL (0.6-4.6); Lymphocytes % 15.2 %; Mean Corpuscular HGB Conc 31.6 g/dL (31.6-35.5); Mean Corpuscular Hemoglobin 27.4 pg (28.0-33.3); Mean Corpuscular Volume 86.5 fL (83.0-100.0); Mean Platelet Volume 9.7 fL (9.4-12.4); Monocytes # 0.8 K/mcL (0.0-1.3); Neutrophils # 6.5 K/mcL (1.6-8.9); Platelet Count 419 K/mcL (140-400); Red Blood Count 3.18 M/mcL (4.19-5.50); Red Cell Distribution Width 15.6 % (11.5-14.5); Segmented Neutrophils % 70.2 %
[2018-05-15 18:45] LABS: Potassium 3.8 mEq/L (3.5-5.1)
[2018-05-15] MEDS: Gabapentin 300 MG CAPSULE PO SCH (21:00)
[2018-05-15] MEDS: hydrOXYzine pamoate 25 MG CAPSULE PO PRN (21:01)
[2018-05-15] MEDS: Fluticasone Propionate Nasal 50 MCG/SPRAY BOTTLE NS SCH (21:03)
[2018-05-16] MEDS: Acetaminophen 325 MG TABLET PO SCH ×4 (06:33→17:13)
[2018-05-16] MEDS: Ascorbic Acid 500 MG TABLET PO SCH (06:34)
[2018-05-16] MEDS: Ondansetron ODT 4 MG TAB.RAPDIS SL PRN ×3 (06:43→17:13)
[2018-05-16 08:20] LABS: ABG Base Excess 10 mEq/L (-2 to 3); ABG HCO3 35 mEq/L (21-27); ABG Oxygen Saturation 90 % (95-98); ABG PCO2 48 mmHg (35-45); ABG PH 7.48 pH Units (7.32-7.45); ABG PO2 55 mmHg (85-104); ABG TCO2 37 mEq/L (20-26)
[2018-05-16 08:45] LABS: Basophils % 0.4 %; Eosinophils # 0.3 K/mcL (0.0-0.6); Eosinophils % 2.5 %; Hemoglobin 8.5 g/dL (12.9-16.9); Immature Granulocytes % 3.9 % (0-4); Lymphocytes # 1.7 K/mcL (0.6-4.6); Mean Corpuscular HGB Conc 31.5 g/dL (31.6-35.5); Mean Corpuscular Hemoglobin 27.1 pg (28.0-33.3); Mean Platelet Volume 9.5 fL (9.4-12.4); Monocytes # 1.2 K/mcL (0.0-1.3); Monocytes % 11.5 %; Neutrophils # 6.6 K/mcL (1.6-8.9); Nucleated Red Blood Cells 0.3 /100 WBC (0); Platelet Count 424 K/mcL (140-400); Red Blood Count 3.14 M/mcL (4.19-5.50); Red Cell Distribution Width 15.7 % (11.5-14.5); Segmented Neutrophils % 64.7 %
[2018-05-16] MEDS: Cholecalciferol (D-3) 1,000 UNIT TABLET PO SCH (09:49)
[2018-05-16] MEDS: Ranolazine 500 MG TAB.ER.12H PO SCH ×2 (09:49→20:59)
[2018-05-16] MEDS: Loratadine 10 MG TABLET PO SCH (09:49)
[2018-05-16] MEDS: Aspirin 81 MG TAB.CHEW PO SCH (09:49)
[2018-05-16] MEDS: traMADol 50 MG TABLET PO PRN ×2 (09:52→17:13)
[2018-05-16] MEDS: Carbidopa/Levodopa 25/100 TABLET PO SCH ×4 (10:12→21:01)
--- NOTE | 2018-05-16 10:56 | Internal Med Progress Note ---
Date of Encounter: 05/16/18 Time of Encounter: 10:45 - Assessment and plan (1) Orthostatic hypotension Current Visit: No Status: Acute Assessment and plan: May 14. He denies orthostatic vital signs being done today. Will check in a.m. May 15. Orthostatic vital signs reviewed. Continue to monitor. (2) Hypertension Current Visit: No Status: Chronic Assessment and plan: May 14. Not presently taking anti-hypertensive medication. Continue to monitor. Qualifiers: Hypertension type: essential hypertension Qualified Code(s): I10 - Essential (primary) hypertension (3) Diabetes Current Visit: No Status: Chronic Assessment and plan: May 14. Hemoglobin A1c was 9.0% on 04/25/2018. Continue Accu-Cheks with SSI. May 15. Accu-Chek show significant fluctuation. Continue to monitor. Qualifiers: Diabetes mellitus type: type 2 Diabetes mellitus director long term care insulin use: with senior care use Diabetes mellitus complication status: with kidney complications Diabetes mellitus complication detail: with chronic kidney disease Chronic kidney disease stage: stage 5, not on chronic dialysis Qualified Code(s): E11.22 - Type 2 diabetes mellitus with diabetic chronic kidney disease; N18.5 - Chronic kidney disease, stage 5; Z79.4 - skilled nursing (current) use of insulin (4) Hypothyroidism Current Visit: No Status: Chronic Assessment and plan: May 14. TSH further elevated at 309.85. He states he has been taking Synthroid at home as prescribed. Check T4 and T3 levels in a.m. May 15. Free T4 and free T3 are both low at 0.53 ng/dl and 1.79 pg/mL respectively. Increase Synthroid to 300 g daily. May 16. Continue higher dose Synthroid. Qualifiers: Hypothyroidism type: unspecified Qualified Code(s): E03.9 - Hypothyroidism, unspecified (5) Hyperuricemia Current Visit: No Status: Chronic Assessment and plan: May 14. Uric acid level normal at 5.5. (6) L1 vertebral fracture Current Visit: No Status: Acute Assessment and plan: May 14. Continue analgesics and therapy. Qualifiers: Encounter type: initial encounter Fracture type: closed Fracture morpholo gy: unspecified fracture morphology Qualified Code(s): S32.019A - Unspecified fracture of first lumbar vertebra, initial encounter for closed fracture (7) ESRD (end stage renal disease) on dialysis Current Visit: No Status: Chronic Assessment and plan: May 14. Continue MWF hemodialysis. (8) Anemia Current Visit: No Status: Chronic Assessment and plan: May 14. Anemia testing showed iron 38, transferrin saturation 14%, transferrin 201, ferritin 227, B12 358, and folate 6.0. Start ferrous sulfate with ascorbic acid in a.m. Qualifiers: Anemia type: unspecified type Qualified Code(s): D64.9 - Anemia, unspecified (9) Ankle fracture, right Current Visit: Yes Status: Acute Assessment and plan: May 15. Continue analgesics. Follow up with orthopedist as directed. Qualifiers: Encounter type: subsequent encounter Fracture type: closed Fracture healing: with routine healing Qualified Code(s): S82.891D - Other fracture of right lower leg, subsequent encounter for closed fracture with routine healing (10) Abdominal discomfort Current Visit: Yes Status: Acute Assessment and plan: May 15. Order KUB and labs to further evaluate. May 16. KUB unremarkable. Will do abdominal CT scan to further evaluate. - Subjective Interval history: May 14. He complains of nausea and slightly loose stools. He states he has constant pain in his right ankle from the fracture. May 15. He complains of ongoing nausea and has had vomiting today. He states his stools are still loose. May 16. I was contacted during the night that he had swallowed a medicine cup. The accuracy of this claim is uncertain. He has no new complaints today. He states he is still nauseated and had a episode of vomiting since I saw him yesterday. - Constitutional Vitals: Temp Pulse Resp BP Pulse Ox 98.3 F 81 17 122/71 95 05/16/18 06:47 05/16/18 06:47 05/16/18 06:47 05/16/18 06:47 05/16/18 06:47 Exam: He is resting comfortably in bed and appears in no acute distress. Abdomen is minimally tender to palpation. Bowel sounds are present but appears slightly high-pitched. I reviewed his medications and lab results. Internal Medicine: Result - Labs CBC & Chem 7: 05/16/18 08:37 05/15/18 18:16 Labs: Short CBC 05/15/18 05/16/18 Range/Units 18:16 08:37 WBC 9.3 10.2 (4.3-11.1) K/mcL Hgb 8.7 L 8.5 L (12.9-16.9) g/dL Hct 27.5 L 27.0 L (37.5-50.1) % Plt Count 419 H 424 H (140-400) K/mcL Neutrophils # 6.5 6.6 (1.6-8.9) K/mcL BMP 05/15/18 18:16 Sodium 136 Potassium 3.8 Chloride 92 L Carbon Dioxide 32 H BUN 24 H Creatinine 5.35 H Glucose 333 H Calcium 9.0 - ABG Interpretation ABG results: ABG ABG pH 7.48 pH Units (7.32-7.45) H 05/16/18 08:17 ABG pCO2 48 mmHg (35-45) H 05/16/18 08:17 ABG pO2 55 mmHg (85-104) L 05/16/18 08:17 ABG O2 Saturation 90 % (95-98) L 05/16/18 08:17 - Impressions Impressions KUB X-Ray 05/15/18 17:40 IMPRESSION: Nonspecific, nonobstructed bowel gas pattern. D/ / Flavio Grimaldo MD / Flavio Grimaldo MD Interpreting Provider: Flavio Grimaldo MD Consult Discharge Plan - Plan Referrals: NONE,PCP [Primary Care Provider] - 1 week
[2018-05-16] MEDS: [UNRECOGNIZED DRUG - OTHER] SQ SCH (13:13)
[2018-05-16] MEDS: Gabapentin 300 MG CAPSULE PO SCH (20:59)
[2018-05-16] MEDS: Fluticasone Propionate Nasal 50 MCG/SPRAY BOTTLE NS SCH (21:01)
[2018-05-17] MEDS: Acetaminophen 325 MG TABLET PO SCH ×2 (03:16→09:26)
[2018-05-17] MEDS: Ondansetron ODT 4 MG TAB.RAPDIS SL PRN (05:18)
[2018-05-17] MEDS ORDERED: *HR* HYDROcodone/Acet 5/325 mg TABLET PO PRN (08:18)
[2018-05-17] MEDS ORDERED: traMADol 50 MG TABLET PO PRN (08:18)
[2018-05-17] MEDS ORDERED: *HR* Promethazine 25 MG/ML VIAL IM PRN (08:18)
[2018-05-17] MEDS ORDERED: D5% in Water 1,000 ML IVC PRN ×2 (09:13→18:32)
[2018-05-17] MEDS ORDERED: Dextrose Gel 15 GM/37.5 ML TUBE PO PRN ×4 (09:13→18:32)
[2018-05-17] MEDS ORDERED: *HR* Dextrose 50 % in Water (Syg) 50 ML SYRINGE IVP PRN ×2 (09:13→18:32)
--- NOTE | 2018-05-17 10:19 | Internal Med Progress Note ---
Date of Encounter: 05/17/18 Time of Encounter: 10:12 - Assessment and plan (1) Orthostatic hypotension Current Visit: No Status: Acute Assessment and plan: May 14. He denies orthostatic vital signs being done today. Will check in a.m. May 15. Orthostatic vital signs reviewed. Continue to monitor. (2) Hypertension Current Visit: No Status: Chronic Assessment and plan: May 14. Not presently taking anti-hypertensive medication. Continue to monitor. Qualifiers: Hypertension type: essential hypertension Qualified Code(s): I10 - Essential (primary) hypertension (3) Diabetes Current Visit: No Status: Chronic Assessment and plan: May 14. Hemoglobin A1c was 9.0% on 04/25/2018. Continue Accu-Cheks with SSI. May 15. Accu-Chek show significant fluctuation. Continue to monitor. May 17. Nursing staff reported to me that his insulin pump has been disconnected. Will order Accu-Cheks with medium dose SSI. 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 TSH further elevated at 309.85. He states he has been taking Synthroid at home as prescribed. Check T4 and T3 levels in a.m. May 15. Free T4 and free T3 are both low at 0.53 ng/dl and 1.79 pg/mL respectively. Increase Synthroid to 300 g daily. May 16. Continue higher dose Synthroid. Qualifiers: Hypothyroidism type: unspecified Qualified Code(s): E03.9 - Hypothyroidism, unspecified (5) Hyperuricemia Current Visit: No Status: Chronic Assessment and plan: May 14. Uric acid level normal at 5.5. (6) L1 vertebral fracture Current Visit: No Status: Acute Assessment and plan: May 14. Continue analgesics and therapy. Qualifiers: Encounter type: initial encounter Fracture type: closed Fracture morphology: unspecified fracture morphology Qualified Code(s): S32.019A - Unspecified fracture of first lumbar vertebra, initial encounter for closed fracture (7) ESRD (end stage renal disease) on dialysis Current Visit: No Status: Chronic Assessment and plan: May 14. Continue MWF hemodialysis. (8) Anemia Current Visit: No Status: Chronic Assessment and plan: May 14. Anemia testing showed iron 38, transferrin saturation 14%, tra nsferrin 201, ferritin 227, B12 358, and folate 6.0. Start ferrous sulfate with ascorbic acid in a.m. Qualifiers: Anemia type: unspecified type Qualified Code(s): D64.9 - Anemia, unspecified (9) Ankle fracture, right Current Visit: Yes Status: Acute Assessment and plan: May 15. Continue analgesics. Follow up with orthopedist as directed. Qualifiers: Encounter type: subsequent encounter Fracture type: closed Fracture healing: with routine healing Qualified Code(s): S82.891D - Other fracture of right lower leg, subsequent encounter for closed fracture with routine healing (10) Abdominal discomfort Current Visit: Yes Status: Acute Assessment and plan: May 15. Order KUB and labs to further evaluate. May 16. KUB unremarkable. Will do abdominal CT scan to further evaluate. May 17. Abdominal CT scan unremarkable. Will discontinue Phenergan and give trial of scheduled Reglan for possible gastroparesis. - Subjective Interval history: May 14. He complains of nausea and slightly loose stools. He states he has constant pain in his right ankle from the fracture. May 15. He complains of ongoing nausea and has had vomiting today. He states his stools are still loose. May 16. I was contacted during the night that he had swallowed a medicine cup. The accuracy of this claim is uncertain. He has no new complaints today. He states he is still nauseated and had a episode of vomiting since I saw him yesterday. May 17. He has no new complaints. He states he still has nausea. - Constitutional Vitals: Temp Pulse Resp BP Pulse Ox 98.7 F 89 17 91/59 95 05/17/18 08:47 05/17/18 08:47 05/17/18 07:14 05/17/18 08:47 05/17/18 07:14 Exam: He is resting comfortably in bed and appears in no acute distress. He does not mention abdominal pain but reports nausea. He has occasional involuntary muscle jerk. I reviewed his medications and lab results. Internal Medicine: Result - Labs CBC & Chem 7: 05/16/18 08:37 05/15/18 18:16 - ABG Interpretation ABG results: ABG ABG pH 7.48 pH Units (7.32-7.45) H 05/16/18 08:17 ABG pCO2 48 mmHg (35-45) H 05/16/18 08:17 ABG pO2 55 mmHg (85-104) L 05/16/18 08:17 ABG O2 Saturation 90 % (95-98) L 05/16/18 08:17 - Impressions Impressions Abdomen/Pelvis CT 05/16/18 10:35 IMPRESSION: 1. No acute intra-abdominal or pelvic abnormality. D/ / 05/16/2018 12:44:41 Wally Florence MD / [email or web address] Interpreting Provider: Wally Florence MD Consult Discharge Plan - Plan Referrals: NONE,PCP [Primary Care Provider] - 1 week
[2018-05-17] MEDS ORDERED: Insulin LISPRO 300 UNITS/3 ML VIAL SQ ONE (10:27)
[2018-05-17] MEDS: Cholecalciferol (D-3) 1,000 UNIT TABLET PO SCH (10:29)
[2018-05-17] MEDS: Ascorbic Acid 500 MG TABLET PO SCH ×2 (10:29→11:14)
[2018-05-17] MEDS: Carbidopa/Levodopa 25/100 TABLET PO SCH ×4 (10:29→20:32)
[2018-05-17] MEDS: Ranolazine 500 MG TAB.ER.12H PO SCH ×3 (10:29→20:33)
[2018-05-17] MEDS: Aspirin 81 MG TAB.CHEW PO SCH (10:52)
[2018-05-17] MEDS: Acetaminophen 325 MG TABLET PO PRN (11:11)
[2018-05-17] MEDS ORDERED: Insulin LISPRO 300 UNITS/3 ML VIAL SQ SCH ×2 (11:30→21:00)
[2018-05-17] MEDS: [UNRECOGNIZED DRUG - OTHER] SQ SCH (15:25)
[2018-05-17 17:30] LABS: ABG Base Excess 7 mEq/L (-2 to 3); ABG HCO3 31 mEq/L (21-27); ABG Oxygen Saturation 95 % (95-98); ABG PCO2 46 mmHg (35-45); ABG PH 7.45 pH Units (7.32-7.45); ABG PO2 74 mmHg (85-104); ABG TCO2 33 mEq/L (20-26)
[2018-05-17] MEDS ORDERED: 0.9 % Sodium Chloride 250 ML IVC ONE (18:01)
[2018-05-17] MEDS: Gabapentin 300 MG CAPSULE PO SCH (20:33)
[2018-05-17] MEDS: Insulin LISPRO 300 UNITS/3 ML VIAL SQ SCH ×2 (20:33)
[2018-05-17] MEDS: Fluticasone Propionate Nasal 50 MCG/SPRAY BOTTLE NS SCH (20:36)
[2018-05-17] MEDS ORDERED: Insulin DETEMIR 100 UNIT/ML X5UNITS SQ SCH ×2 (21:00)
[2018-05-18] MEDS: Ascorbic Acid 500 MG TABLET PO SCH (05:34)
[2018-05-18 06:31] LABS: Basophils % 0.3 %; Eosinophils # 0.3 K/mcL (0.0-0.6); Eosinophils % 2.6 %; Hematocrit 26.7 % (37.5-50.1); Hemoglobin 8.1 g/dL (12.9-16.9); Immature Granulocytes % 2.5 % (0-4); Lymphocytes # 1.7 K/mcL (0.6-4.6); Lymphocytes % 14.1 %; Mean Corpuscular HGB Conc 30.3 g/dL (31.6-35.5); Mean Corpuscular Hemoglobin 26.9 pg (28.0-33.3); Mean Corpuscular Volume 88.7 fL (83.0-100.0); Mean Platelet Volume 10.2 fL (9.4-12.4); Monocytes # 1.3 K/mcL (0.0-1.3); Monocytes % 10.9 %; Neutrophils # 8.4 K/mcL (1.6-8.9); Nucleated Red Blood Cells 0.2 /100 WBC (0); Platelet Count 436 K/mcL (140-400); Red Blood Count 3.01 M/mcL (4.19-5.50); Red Cell Distribution Width 15.9 % (11.5-14.5); Segmented Neutrophils % 69.6 %
[2018-05-18 06:59] LABS: Albumin 3.2 g/dL (3.5-5.7); Bilirubin,Total 0.7 mg/dL (0.3-1.0); Calcium 8.9 mg/dL (8.6-10.3); Globulin 3.3 g/dL (2.4-3.5); Potassium 5.4 mEq/L (3.5-5.1); Total Protein 6.5 g/dL (6.4-8.9)
[2018-05-18] MEDS: Ranolazine 500 MG TAB.ER.12H PO SCH ×2 (07:47→22:38)
[2018-05-18] MEDS: Insulin LISPRO 300 UNITS/3 ML VIAL SQ SCH ×4 (07:47→22:38)
[2018-05-18] MEDS: Cholecalciferol (D-3) 1,000 UNIT TABLET PO SCH (07:49)
[2018-05-18] MEDS: Carbidopa/Levodopa 25/100 TABLET PO SCH ×4 (07:53→22:38)
--- NOTE | 2018-05-18 10:22 | Internal Med Progress Note ---
Date of Encounter: 05/18/18 Time of Encounter: 10:15 - Assessment and plan (1) Orthostatic hypotension Current Visit: No Status: Acute Assessment and plan: May 14. He denies orthostatic vital signs being done today. Will check in a.m. May 15. Orthostatic vital signs reviewed. Continue to monitor. (2) Hypertension Current Visit: No Status: Chronic Assessment and plan: May 14. Not presently taking anti-hypertensive medication. Continue to monitor. Qualifiers: Hypertension type: essential hypertension Qualified Code(s): I10 - Essential (primary) hypertension (3) Diabetes Current Visit: No Status: Chronic Assessment and plan: May 14. Hemoglobin A1c was 9.0% on 04/25/2018. Continue Accu-Cheks with SSI. May 15. Accu-Chek show significant fluctuation. Continue to monitor. May 17. Nursing staff reported to me that his insulin pump has been disconnected. Will order Accu-Cheks with medium dose SSI. May 18. Blood sugars show significant fluctuation. Continue Accu-Cheks with SSI. 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 TSH further elevated at 309.85. He states he has been taking Synthroid at home as prescribed. Check T4 and T3 levels in a.m. May 15. Free T4 and free T3 are both low at 0.53 ng/dl and 1.79 pg/mL respectively. Increase Synthroid to 300 g daily. May 16. Continue higher dose Synthroid. Qualifiers: Hypothyroidism type: unspecified Qualified Code(s): E03.9 - Hypothyroidism, unspecified (5) Hyperuricemia Current Visit: No Status: Chronic Assessment and plan: May 14. Uric acid level normal at 5.5. (6) L1 vertebral fracture Current Visit: No Status: Acute Assessment and plan: May 14. Continue analgesics and therapy. Qualifiers: Encounter type: initial encounter Fracture type: closed Fracture morphology: unspecified fracture morphology Qualified Code(s): S32.019A - Unspecified fracture of first lumbar vertebra, initial encounter for closed fracture (7) ESRD (end stage renal disease) on dialysis Current Visit: No Status: Chronic Assessment and plan: May 14. Continue MWF hemodialysis. (8) Anemia Current Visit: No Status: Chronic Assessment and plan: May 14. Anemia testing showed iron 38, transferrin saturation 14%, transferrin 201, ferritin 227, B12 358, and folate 6.0. Start ferrous sulfate with ascorbic acid in a.m. Qualifiers: Anemia type: unspecified type Qualified Code(s): D64.9 - Anemia, unspecified (9) Ankle fracture, right Current Visit: Yes Status: Acute Assessment and plan: May 15. Continue analgesics. Follow up with orthopedist as directed. Qualifiers: Encounter type: subsequent encounter Fracture type: closed Fracture healing: with routine healing Qualified Code(s): S82.891D - Other fracture of right lower leg, subsequent encounter for closed fracture with routine healing (10) Abdominal discomfort Current Visit: Yes Status: Acute Assessment and plan: May 15. Order KUB and labs to further evaluate. May 16. KUB unremarkable. Will do abdominal CT scan to further evaluate. May 17. Abdominal CT scan unremarkable. Will discontinue Phenergan and give trial of scheduled Reglan for possible gastroparesis. May 18. Improved. Continue Reglan. - Subjective Interval history: May 14. He complains of nausea and slightly loose stools. He states he has constant pain in his right ankle from the fracture. May 15. He complains of ongoing nausea and has had vomiting today. He states his stools are still loose. May 16. I was contacted during the night that he had swallowed a medicine cup. The accuracy of this claim is uncertain. He has no new complaints today. He states he is still nauseated and had a episode of vomiting since I saw him yesterday. May 17. He has no new complaints. He states he still has nausea. May 18. He has no new complaints and states he feels better. His nausea has lessened. - Constitutional Vitals: Temp Pulse Resp BP Pulse Ox 98.3 F 83 16 115/67 98 05/18/18 06:32 05/18/18 06:32 05/18/18 06:32 05/18/18 06:32 05/18/18 06:32 Exam: He is resting comfortably in a chair at bedside. His conversation is appropriate. I reviewed his medications and lab results. Internal Medicine: Result - Labs CBC & Chem 7: 05/18/18 05:55 05/18/18 05:55 Labs: Short CBC 05/18/18 Range/Units 05:55 WBC 12.1 H (4.3-11.1) K/mcL Hgb 8.1 L (12.9-16.9) g/dL Hct 26.7 L (37.5-50.1) % Plt Count 436 H (140-400) K/mcL Neutrophils # 8.4 (1.6-8.9) K/mcL BMP 05/18/18 05:55 Sodium 131 L Potassium 5.4 H Chloride 89 L Carbon Dioxide 26 BUN 45 H Creatinine 7.53 H Glucose 489 H Calcium 8.9 Liver Function 05/18/18 Range/Units 05:55 Total Bilirubin 0.7 (0.3-1.0) mg/dL AST 16 (13-39) Units/L ALT 3 L (7-52) Units/L Alkaline Phosphatase 117 H (34-104) Units/L Albumin 3.2 L (3.5-5.7) g/dL - ABG Interpretation ABG results: ABG ABG pH 7.45 pH Units (7.32-7.45) 05/17/18 17:24 ABG pCO2 46 mmHg (35-45) H 05/17/18 17:24 ABG pO2 74 mmHg (85-104) L 05/17/18 17:24 ABG O2 Saturation 95 % (95-98) 05/17/18 17:24 Consult Discharge Plan - Plan Referrals: NONE,PCP [Primary Care Provider] - 1 week
[2018-05-18] MEDS: Fluticasone Propionate Nasal 50 MCG/SPRAY BOTTLE NS SCH (22:38)
[2018-05-18] MEDS: Gabapentin 300 MG CAPSULE PO SCH (22:38)
--- NOTE | 2018-05-18 22:52 | Electrocardiograph Report ---
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
[2018-05-19] MEDS: Insulin LISPRO 300 UNITS/3 ML VIAL SQ SCH ×6 (01:20→23:44)
[2018-05-19] MEDS: Ascorbic Acid 500 MG TABLET PO SCH (06:30)
[2018-05-19] MEDS: Cholecalciferol (D-3) 1,000 UNIT TABLET PO SCH (08:40)
[2018-05-19] MEDS: Ranolazine 500 MG TAB.ER.12H PO SCH ×2 (08:41→23:30)
[2018-05-19] MEDS: Carbidopa/Levodopa 25/100 TABLET PO SCH ×4 (08:55→23:34)
[2018-05-19] MEDS ORDERED: Insulin LISPRO 300 UNITS/3 ML VIAL SQ ONE (09:10)
[2018-05-19] MEDS: Insulin DETEMIR 100 UNIT/ML X5UNITS SQ SCH ×2 (10:38→23:32)
--- NOTE | 2018-05-19 10:45 | Internal Med Progress Note ---
Date of Encounter: 05/19/18 Time of Encounter: 10:25 - Assessment and plan (1) Orthostatic hypotension Current Visit: No Status: Acute Assessment and plan: May 14. He denies orthostatic vital signs being done today. Will check in a.m. May 15. Orthostatic vital signs reviewed. Continue to monitor. (2) Hypertension Current Visit: No Status: Chronic Assessment and plan: May 14. Not presently taking anti-hypertensive medication. Continue to monitor. Qualifiers: Hypertension type: essential hypertension Qualified Code(s): I10 - Essential (primary) hypertension (3) Diabetes Current Visit: No Status: Chronic Assessment and plan: May 14. Hemoglobin A1c was 9.0% on 04/25/2018. Continue Accu-Cheks with SSI. May 15. Accu-Chek show significant fluctuation. Continue to monitor. May 17. Nursing staff reported to me that his insulin pump has been disconnected. Will order Accu-Cheks with medium dose SSI. May 18. Blood sugars show significant fluctuation. Continue Accu-Cheks with SSI. May 19. Insulin pump is not functioning. Start Levemir 10 units twice a day and continue Accu-Cheks with medium dose SSI. 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 TSH further elevated at 309.85. He states he has been taking Synthroid at home as prescribed. Check T4 and T3 levels in a.m. May 15. Free T4 and free T3 are both low at 0.53 ng/dl and 1.79 pg/mL respectively. Increase Synthroid to 300 g daily. May 16. Continue higher dose Synthroid. Qualifiers: Hypothyroidism type: unspecified Qualified Code(s): E03.9 - Hypothyroidism, unspecified (5) Hyperuricemia Current Visit: No Status: Chronic Assessment and plan: May 14. Uric acid level normal at 5.5. (6) L1 vertebral fracture Current Visit: No Status: Acute Assessment and plan: May 14. Continue analgesics and therapy. May 19. Opioids were discontinued and involuntary muscle jerking appears to have lessened. He does not complain of pain. Continue Tylenol and Neurontin. Qualifiers: Encounter type: initial encounter Fracture type: closed Fracture morphology: unspecified fracture morphology Qualified Code(s): S32.019A - Unspecified fracture of first lumbar vertebra, initial encounter for closed fracture (7) ESRD (end stage renal disease) on dialysis Current Visit: No Status: Chronic Assessment and plan: May 14. Continue MWF hemodialysis. (8) Anemia Current Visit: No Status: Chronic Assessment and plan: May 14. Anemia testing showed iron 38, transferrin saturation 14%, transferrin 201, ferritin 227, B12 358, and folate 6.0. Start ferrous sulfate with ascorbic acid in a.m. Qualifiers: Anemia type: unspecified type Qualified Code(s): D64.9 - Anemia, unspecified (9) Ankle fracture, right Current Visit: Yes Status: Acute Assessment and plan: May 15. Continue analgesics. Follow up with orthopedist as directed. Qualifiers: Encounter type: subsequent encounter Fracture type: closed Fracture healing: with routine healing Qualified Code(s): S82.891D - Other fracture of right lower leg, subsequent encounter for closed fracture with routine healing (10) Abdominal discomfort Current Visit: Yes Status: Acute Assessment and plan: May 15. Order KUB and labs to further evaluate. May 16. KUB unremarkable. Will do abdominal CT scan to further evaluate. May 17. Abdominal CT scan unremarkable. Will discontinue Phenergan and give trial of scheduled Reglan for possible gastroparesis. May 18. Improved. Continue Reglan. - Subjective Interval history: May 14. He complains of nausea and slightly loose stools. He states he has constant pain in his right ankle from the fracture. May 15. He complains of ongoing nausea and has had vomiting today. He s tates his stools are still loose. May 16. I was contacted during the night that he had swallowed a medicine cup. The accuracy of this claim is uncertain. He has no new complaints today. He states he is still nauseated and had a episode of vomiting since I saw him yesterday. May 17. He has no new complaints. He states he still has nausea. May 18. He has no new complaints and states he feels better. His nausea has lessened. May 19. He has no new complaints. He still has some nausea. - Constitutional Vitals: Temp Pulse Resp BP Pulse Ox 98.2 F 78 16 88/72 97 05/19/18 06:57 05/19/18 06:57 05/19/18 06:57 05/19/18 06:57 05/19/18 06:57 Exam: He is sitting on the side of bed and appears in no acute distress. His affect is cheerful. His speech is appropriate. He had no involuntary muscle jerking during the visit. I reviewed his medications and lab results. Internal Medicine: Result - Labs CBC & Chem 7: 05/18/18 05:55 05/18/18 05:55 - ABG Interpretation ABG results: ABG ABG pH 7.45 pH Units (7.32-7.45) 05/17/18 17:24 ABG pCO2 46 mmHg (35-45) H 05/17/18 17:24 ABG pO2 74 mmHg (85-104) L 05/17/18 17:24 ABG O2 Saturation 95 % (95-98) 05/17/18 17:24 Consult Discharge Plan - Plan Referrals: NONE,PCP [Primary Care Provider] - 1 week
[2018-05-19] MEDS: Aspirin 81 MG TAB.CHEW PO SCH (16:22)
[2018-05-19] MEDS: Acetaminophen 325 MG TABLET PO PRN (23:29)
[2018-05-19] MEDS: hydrOXYzine pamoate 25 MG CAPSULE PO PRN (23:30)
[2018-05-19] MEDS: Fluticasone Propionate Nasal 50 MCG/SPRAY BOTTLE NS SCH (23:30)
[2018-05-19] MEDS: Gabapentin 300 MG CAPSULE PO SCH (23:30)
[2018-05-20] MEDS: Ascorbic Acid 500 MG TABLET PO SCH (06:19)
[2018-05-20 06:42] LABS: Basophils % 0.4 %; Eosinophils # 0.3 K/mcL (0.0-0.6); Eosinophils % 2.8 %; Hematocrit 27.7 % (37.5-50.1); Hemoglobin 8.7 g/dL (12.9-16.9); Immature Granulocytes % 1.4 % (0-4); Lymphocytes # 1.7 K/mcL (0.6-4.6); Lymphocytes % 17.5 %; Mean Corpuscular HGB Conc 31.4 g/dL (31.6-35.5); Mean Corpuscular Hemoglobin 27.2 pg (28.0-33.3); Mean Corpuscular Volume 86.6 fL (83.0-100.0); Mean Platelet Volume 9.9 fL (9.4-12.4); Monocytes # 1.1 K/mcL (0.0-1.3); Monocytes % 11.1 %; Neutrophils # 6.4 K/mcL (1.6-8.9); Platelet Count 478 K/mcL (140-400); Red Cell Distribution Width 15.9 % (11.5-14.5); Segmented Neutrophils % 66.8 %
[2018-05-20 07:03] LABS: Calcium 9.2 mg/dL (8.6-10.3); Potassium 3.9 mEq/L (3.5-5.1)
[2018-05-20] MEDS: Ranolazine 500 MG TAB.ER.12H PO SCH ×2 (09:45→21:00)
[2018-05-20] MEDS: Cholecalciferol (D-3) 1,000 UNIT TABLET PO SCH (09:46)
[2018-05-20] MEDS: Carbidopa/Levodopa 25/100 TABLET PO SCH ×4 (09:49→21:04)
[2018-05-20] MEDS: Insulin DETEMIR 100 UNIT/ML X5UNITS SQ SCH ×2 (09:50→21:01)
[2018-05-20] MEDS ORDERED: *HR* Dextrose 50 % in Water (Syg) 50 ML SYRINGE IVP PRN (10:02)
[2018-05-20] MEDS ORDERED: D5% in Water 1,000 ML IVC PRN (10:02)
[2018-05-20] MEDS ORDERED: Dextrose Gel 15 GM/37.5 ML TUBE PO PRN ×2 (10:02)
[2018-05-20] MEDS ORDERED: Insulin LISPRO 300 UNITS/3 ML VIAL SQ SCH (11:30)
[2018-05-20] MEDS: Insulin LISPRO 300 UNITS/3 ML VIAL SQ SCH ×3 (12:29→21:01)
[2018-05-20] MEDS ORDERED: ALPRAZolam 0.5 MG TABLET PO ONE (13:24)
--- NOTE | 2018-05-20 14:36 | Internal Med Progress Note ---
Date of Encounter: 05/20/18 Time of Encounter: 14:25 - Assessment and plan (1) Orthostatic hypotension Current Visit: No Status: Acute Assessment and plan: May 14. He denies orthostatic vital signs being done today. Will check in a.m. May 15. Orthostatic vital signs reviewed. Continue to monitor. (2) Hypertension Current Visit: No Status: Chronic Assessment and plan: May 14. Not presently taking anti-hypertensive medication. Continue to monitor. Qualifiers: Hypertension type: essential hypertension Qualified Code(s): I10 - Essential (primary) hypertension (3) Diabetes Current Visit: No Status: Chronic Assessment and plan: May 14. Hemoglobin A1c was 9.0% on 04/25/2018. Continue Accu-Cheks with SSI. May 15. Accu-Chek show significant fluctuation. Continue to monitor. May 17. Nursing staff reported to me that his insulin pump has been disconnected. Will order Accu-Cheks with medium dose SSI. May 18. Blood sugars show significant fluctuation. Continue Accu-Cheks with SSI. May 19. Insulin pump is not functioning. Start Levemir 10 units twice a day and continue Accu-Cheks with medium dose SSI. May 20. Continue Levemir and Accu-Cheks with SSI. 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 TSH further elevated at 309.85. He states he has been taking Synthroid at home as prescribed. Check T4 and T3 levels in a.m. May 15. Free T4 and free T3 are both low at 0.53 ng/dl and 1.79 pg/mL respectively. Increase Synthroid to 300 g daily. May 16. Continue higher dose Synthroid. Qualifiers: Hypothyroidism type: unspecified Qualified Code(s): E03.9 - Hypothyroidism, unspecified (5) Hyperuricemia Current Visit: No Status: Chronic Assessment and plan: May 14. Uric acid level normal at 5.5. (6) L1 vertebral fracture Current Visit: No Status: Acute Assessment and plan: May 14. Continue analgesics and therapy. May 19. Opioids were discontinued and involuntary muscle jerking appears to have lessened. He does not complain of pain. Continue Tylenol and Neurontin. Qualifiers: Encounter type: initial encounter Fracture type: closed Fracture morphology: unspecified fracture morphology Qualified Code(s): S32.019A - Unspecified fracture of first lumbar vertebra, initial encounter for closed fracture (7) ESRD (end stage renal disease) on dialysis Current Visit: No Status: Chronic Assessment and plan: May 14. Continue MWF hemodialysis. (8) Anemia Current Visit: No Status: Chronic Assessment and plan: May 14. Anemia testing showed iron 38, transferrin saturation 14%, transferrin 201, ferritin 227, B12 358, and folate 6.0. Start ferrous sulfate with ascorbic acid in a.m. May 20. Hemoglobin improved to 8.7. Continue ferrous sulfate with ascorbic acid. Qualifiers: Anemia type: unspecified type Qualified Code(s): D64.9 - Anemia, unspecified (9) Ankle fracture, right Current Visit: Yes Status: Acute Assessment and plan: May 15. Continue analgesics. Follow up with orthopedist as directed. May 20. Orthopedic follow-up is scheduled for 06/22/2018. Continue NWB status. Wheelchair mobility will be taught to patient and spouse. Qualifiers: Encounter type: subsequent encounter Fracture type: closed Fracture healing: with routine healing Qualified Code(s): S82.891D - Other fracture of right lower leg, subsequent encounter for closed fracture with routine healing (10) Abdominal discomfort Current Visit: Yes Status: Acute Assessment and plan: May 15. Order KUB and labs to further evaluate. May 16. KUB unremarkable. Will do abdominal CT scan to further evaluate. May 17. Abdominal CT scan unremarkable. Will discontinue Phenergan and give trial of scheduled Reglan for possible gastroparesis. May 18. Improved. Continue Reglan. - Subjective Interval history: May 14. He complains of nausea and slightly loose stools. He states he has constant pain in his right ankle from the fracture. May 15. He complains of ongoing nausea and has had vomiting today. He states his stools are still loose. May 16. I was contacted during the night that he had swallowed a medicine cup. The accuracy of this claim is uncertain. He has no new complaints today. He states he is still nauseated and had a episode of vomiting since I saw him yesterday. May 17. He has no new complaints. He states he still has nausea. May 18. He has no new complaints and states he feels better. His nausea has lessened. May 19. He has no new complaints. He still has some nausea. May 20. Nursing staff reported he was confused earlier. He has no specific complaints now. He states his nausea has lessened. - Constitutional Vitals: Temp Pulse Resp BP Pulse Ox 98.8 F 82 16 129/67 92 05/20/18 08:05 05/20/18 08:05 05/20/18 08:05 05/20/18 08:05 05/20/18 08:05 Exam: He is resting comfortably in bed and appears in no acute distress. His affect is cheerful. He is appropriate in conversation and answers questions well. I reviewed his medications and lab results. Internal Medicine: Result - Labs CBC & Chem 7: 05/20/18 05:45 05/20/18 05:45 Labs: Short CBC 05/20/18 Range/Units 05:45 WBC 9.6 (4.3-11.1) K/mcL Hgb 8.7 L (12.9-16.9) g/dL Hct 27.7 L (37.5-50.1) % Plt Count 478 H (140-400) K/mcL Neutrophils # 6.4 (1.6-8.9) K/mcL BMP 05/20/18 05:45 Sodium 138 Potassium 3.9 Chloride 94 L Carbon Dioxide 32 H BUN 30 H Creatinine 5.75 H Glucose 194 H Calcium 9.2 - ABG Interpretation ABG results: ABG ABG pH 7.45 pH Units (7.32-7.45) 05/17/18 17:24 ABG pCO2 46 mmHg (35-45) H 05/17/18 17:24 ABG pO2 74 mmHg (85-104) L 05/17/18 17:24 ABG O2 Saturation 95 % (95-98) 05/17/18 17:24 Consult Discharge Plan - Plan Referrals: NONE,PCP [Primary Care Provider] - 1 week
[2018-05-20] MEDS: Acetaminophen 325 MG TABLET PO PRN (20:59)
[2018-05-20] MEDS: Fluticasone Propionate Nasal 50 MCG/SPRAY BOTTLE NS SCH (20:59)
[2018-05-20] MEDS: Gabapentin 300 MG CAPSULE PO SCH (21:00)
[2018-05-20] MEDS: hydrOXYzine pamoate 25 MG CAPSULE PO PRN (21:00)
[2018-05-21] MEDS: Ascorbic Acid 500 MG TABLET PO SCH (06:50)
[2018-05-21] MEDS: Insulin LISPRO 300 UNITS/3 ML VIAL SQ SCH ×4 (08:42→22:09)
[2018-05-21] MEDS: Insulin DETEMIR 100 UNIT/ML X5UNITS SQ SCH ×2 (09:26→22:09)
--- NOTE | 2018-05-21 10:21 | Internal Med Progress Note ---
Date of Encounter: 05/21/18 Time of Encounter: 10:05 - Assessment and plan (1) Orthostatic hypotension Current Visit: No Status: Acute Assessment and plan: May 14. He denies orthostatic vital signs being done today. Will check in a.m. May 15. Orthostatic vital signs reviewed. Continue to monitor. (2) Hypertension Current Visit: No Status: Chronic Assessment and plan: May 14. Not presently taking anti-hypertensive medication. Continue to monitor. Qualifiers: Hypertension type: essential hypertension Qualified Code(s): I10 - Essential (primary) hypertension (3) Diabetes Current Visit: No Status: Chronic Assessment and plan: May 14. Hemoglobin A1c was 9.0% on 04/25/2018. Continue Accu-Cheks with SSI. May 15. Accu-Chek show significant fluctuation. Continue to monitor. May 17. Nursing staff reported to me that his insulin pump has been disconnected. Will order Accu-Cheks with medium dose SSI. May 18. Blood sugars show significant fluctuation. Continue Accu-Cheks with SSI. May 19. Insulin pump is not functioning. Start Levemir 10 units twice a day and continue Accu-Cheks with medium dose SSI. May 20. Continue Levemir and Accu-Cheks with SSI. May 21. Blood sugars are higher than desirable. Increase Levemir to 15 units twice daily. 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 TSH further elevated at 309.85. He states he has been taking Synthroid at home as prescribed. Check T4 and T3 levels in a.m. May 15. Free T4 and free T3 are both low at 0.53 ng/dl and 1.79 pg/mL respectively. Increase Synthroid to 300 g daily. May 16. Continue higher dose Synthroid. Qualifiers: Hypothyroidism type: unspecified Qualified Code(s): E03.9 - Hypothyroidism, unspecified (5) Hyperuricemia Current Visit: No Status: Chronic Assessment and plan: May 14. Uric acid level normal at 5.5. (6) L1 vertebral fracture Current Visit: No Status: Acute Assessment and plan: May 14. Continue analgesics and therapy. May 19. Opioids were discontinued and involuntary muscle jerking appears to have lessened. He does not complain of pain. Continue Tylenol and Neurontin. Qualifiers: Encounter type: initial encounter Fracture type: closed Fracture morphology: unspecified fracture morphology Qualified Code(s): S32.019A - Unspecified fracture of first lumbar vertebra, initial encounter for closed fracture (7) ESRD (end stage renal disease) on dialysis Current Visit: No Status: Chronic Assessment and plan: May 14. Continue MWF hemodialysis. (8) Anemia Current Visit: No Status: Chronic Assessment and plan: May 14. Anemia testing showed iron 38, transferrin saturation 14%, transferrin 201, ferritin 227, B12 358, and folate 6.0. Start ferrous sulfate with ascorbic acid in a.m. May 20. Hemoglobin improved to 8.7. Continue ferrous sulfate with ascorbic acid. Qualifiers: Anemia type: unspecified type Qualified Code(s): D64.9 - Anemia, unspecified (9) Ankle fracture, right Current Visit: Yes Status: Acute Assessment and plan: May 15. Continue analgesics. Follow up with orthopedist as directed. May 20. Orthopedic follow-up is scheduled for 06/22/2018. Continue NWB st [facility]. Wheelchair mobility will be taught to patient and spouse. Qualifiers: Encounter type: subsequent encounter Fracture type: closed Fracture healing: with routine healing Qualified Code(s): S82.891D - Other fracture of right lower leg, subsequent encounter for closed fracture with routine healing (10) Abdominal discomfort Current Visit: Yes Status: Acute Assessment and plan: May 15. Order KUB and labs to further evaluate. May 16. KUB unremarkable. Will do abdominal CT scan to further evaluate. May 17. Abdominal CT scan unremarkable. Will discontinue Phenergan and give trial of scheduled Reglan for possible gastroparesis. May 18. Improved. Continue Reglan. May 21. He states it has resolved. Continue Reglan. - Subjective Interval history: May 14. He complains of nausea and slightly loose stools. He states he has constant pain in his right ankle from the fracture. May 15. He complains of ongoing nausea and has had vomiting today. He states his stools are still loose. May 16. I was contacted during the night that he had swallowed a medicine cup. The accuracy of this claim is uncertain. He has no new complaints today. He states he is still nauseated and had a episode of vomiting since I saw him yesterday. May 17. He has no new complaints. He states he still has nausea. May 18. He has no new complaints and states he feels better. His nausea has lessened. May 19. He has no new complaints. He still has some nausea. May 20. Nursing staff reported he was confused earlier. He has no specific complaints now. He states his nausea has lessened. May 21. He hit his head on a bed rail earlier this morning. He states there is still some pain and sensation of dizziness. He denies abdominal discomfort at this time. - Constitutional Vitals: Temp Pulse Resp BP Pulse Ox 98.6 F 86 16 153/80 96 05/21/18 08:09 05/21/18 08:09 05/21/18 08:09 05/21/18 08:09 05/21/18 08:09 Exam: He was sleeping but awakened and answers a few questions. No obvious skin les ions in his occipital area are seen. He does not appear to be in acute distress. I reviewed his medications and lab results. Internal Medicine: Result - Labs CBC & Chem 7: 05/20/18 05:45 05/20/18 05:45 - ABG Interpretation ABG results: ABG ABG pH 7.45 pH Units (7.32-7.45) 05/17/18 17:24 ABG pCO2 46 mmHg (35-45) H 05/17/18 17:24 ABG pO2 74 mmHg (85-104) L 05/17/18 17:24 ABG O2 Saturation 95 % (95-98) 05/17/18 17:24 - Impressions Impressions Chest X-Ray 05/21/18 06:15 IMPRESSION: Small opacity in the left lower lung could represent atelectasis or pneumonia. D/ / 05/21/2018 08:09:01 Jacob Bob MD / jan Interpreting Provider: Jacob Bob MD Head CT 05/21/18 06:18 IMPRESSION: No acute intracranial abnormality. Mild cortical volume loss unchanged. D/ / Ted Castillo MD / Ted Castillo MD Interpreting Provider: Ted Castillo MD Consult Discharge Plan - Plan Referrals: NONE,PCP [Primary Care Provider] - 1 week
[2018-05-21] MEDS: Acetaminophen 325 MG TABLET PO PRN (12:02)
[2018-05-21] MEDS: Ranolazine 500 MG TAB.ER.12H PO SCH ×2 (12:02→22:08)
[2018-05-21] MEDS: Carbidopa/Levodopa 25/100 TABLET PO SCH ×4 (12:03→22:08)
[2018-05-21] MEDS: Cholecalciferol (D-3) 1,000 UNIT TABLET PO SCH (12:03)
[2018-05-21] MEDS: Aspirin 81 MG TAB.CHEW PO SCH (12:03)
[2018-05-21] MEDS: Fluticasone Propionate Nasal 50 MCG/SPRAY BOTTLE NS SCH (22:07)
[2018-05-21] MEDS: Gabapentin 300 MG CAPSULE PO SCH (22:08)
[2018-05-22] MEDS: Ascorbic Acid 500 MG TABLET PO SCH (06:13)
[2018-05-22] MEDS: Cholecalciferol (D-3) 1,000 UNIT TABLET PO SCH (08:31)
[2018-05-22] MEDS: Ranolazine 500 MG TAB.ER.12H PO SCH ×2 (08:31→21:50)
[2018-05-22] MEDS: Insulin DETEMIR 100 UNIT/ML X5UNITS SQ SCH ×2 (08:32→21:50)
[2018-05-22] MEDS: Insulin LISPRO 300 UNITS/3 ML VIAL SQ SCH ×5 (08:34→21:50)
[2018-05-22] MEDS: Carbidopa/Levodopa 25/100 TABLET PO SCH ×4 (08:41→21:50)
[2018-05-22] MEDS: Fluticasone Propionate Nasal 50 MCG/SPRAY BOTTLE NS SCH (21:50)
[2018-05-22] MEDS: Acetaminophen 325 MG TABLET PO PRN (21:50)
[2018-05-22] MEDS: Gabapentin 300 MG CAPSULE PO SCH (21:50)
[2018-05-23] MEDS: Ondansetron ODT 4 MG TAB.RAPDIS SL PRN (06:28)
[2018-05-23] MEDS: Ascorbic Acid 500 MG TABLET PO SCH (06:44)
[2018-05-23] MEDS: Insulin LISPRO 300 UNITS/3 ML VIAL SQ SCH ×4 (07:33→20:40)
[2018-05-23] MEDS: Aspirin 81 MG TAB.CHEW PO SCH (08:45)
[2018-05-23] MEDS: Cholecalciferol (D-3) 1,000 UNIT TABLET PO SCH (08:45)
[2018-05-23] MEDS: Ranolazine 500 MG TAB.ER.12H PO SCH ×2 (08:45→20:37)
[2018-05-23] MEDS: Insulin DETEMIR 100 UNIT/ML X5UNITS SQ SCH ×2 (08:47→20:40)
[2018-05-23] MEDS: Carbidopa/Levodopa 25/100 TABLET PO SCH ×4 (08:48→20:41)
[2018-05-23] MEDS: Acetaminophen 325 MG TABLET PO PRN (16:06)
--- NOTE | 2018-05-23 17:39 | Internal Med Progress Note ---
Date of Encounter: 05/23/18 Time of Encounter: 17:30 - Assessment and plan (1) Orthostatic hypotension Current Visit: No Status: Acute Assessment and plan: May 14. He denies orthostatic vital signs being done today. Will check in a.m. May 15. Orthostatic vital signs reviewed. Continue to monitor. May 23. Appears resolved. Remain off hypertensive medication. (2) Hypertension Current Visit: No Status: Chronic Assessment and plan: May 14. Not presently taking anti-hypertensive medication. Continue to monitor. May 23. Blood pressure stable. Remain off antihypertensive medication. Qualifiers: Hypertension type: essential hypertension Qualified Code(s): I10 - Essential (primary) hypertension (3) Diabetes Current Visit: No Status: Chronic Assessment and plan: May 14. Hemoglobin A1c was 9.0% on 04/25/2018. Continue Accu-Cheks with SSI. May 15. Accu-Chek show significant fluctuation. Continue to monitor. May 17. Nursing staff reported to me that his insulin pump has been disconnected. Will order Accu-Cheks with medium dose SSI. May 18. Blood sugars show significant fluctuation. Continue Accu-Cheks with SSI. May 19. Insulin pump is not functioning. Start Levemir 10 units twice a day and continue Accu-Cheks with medium dose SSI. May 20. Continue Levemir and Accu-Cheks with SSI. May 21. Blood sugars are higher than desirable. Increase Levemir to 15 units twice daily. May 23. Blood sugars improved. Continue present regimen. Qualifiers: Diabetes mellitus type: type 2 Diabetes mellitus longterm insulin use: with longterm use Diabetes mellitus complication status: with kidney complications Diabetes mellitus complication detail: with chronic kidney disease Chronic kidney disease stage: stage 5, not on chronic dialysis Qualified Code(s): E11.22 - Type 2 diabetes mellitus with diabetic chronic kidney disease; N18.5 - Chronic kidney disease, stage 5; Z79.4 - [facility] (current) use of insulin (4) Hypothyroidism Current Visit: No Status: Chronic Assessment and plan: May 14. TSH further elevated at 309.85. He states he has been taking Synthroid at home as prescribed. Check T4 and T3 levels in a.m. May 15. Free T4 and free T3 are both low at 0.53 ng/dl and 1.79 pg/mL respectively. Increase Synthroid to 300 g daily. May 16. Continue higher dose Synthroid. Qualifiers: Hypothyroidism type: unspecified Qualified Code(s): E03.9 - Hypothyroidism, unspecified (5) Hyperuricemia Current Visit: No Status: Chronic Assessment and plan: May 14. Uric acid level normal at 5.5. (6) L1 vertebral fracture Current Visit: No Status: Acute Assessment and plan: May 14. Continue analgesics and therapy. May 19. Opioids were discontinued and involuntary muscle jerking appears to have lessened. He does not complain of pain. Continue Tylenol and Neurontin. Qualifiers: Encounter type: initial encounter Fracture type: closed Fracture morphology: unspecified fracture morphology Qualified Code(s): S32.019A - Unspecified fracture of first lumbar vertebra, initial encounter for closed fracture (7) ESRD (end stage renal disease) on dialysis Current Visit: No Status: Chronic Assessment and plan: May 14. Continue MWF hemodialysis. (8) Anemia Current Visit: No Status: Chronic Assessment and plan: May 14. Anemia testing showed iron 38, transferrin saturation 14%, transferrin 201, ferritin 227, B12 358, and folate 6.0. Start ferrous sulfate with ascorbic acid in a.m. May 20. Hemoglobin improved to 8.7. Continue ferrous sulfate with ascorbic acid. Qualifiers: Anemia type: unspecified type Qualified Code(s): D64.9 - Anemia, unspecified (9) Ankle fracture, right Current Visit: Yes Status: Acute Assessment and plan: May 15. Continue analgesics. Follow up with orthopedist as directed. May 20. Orthopedic follow-up is scheduled for 06/22/2018. Continue NWB status. Wheelchair mobility will be taught to patient and spouse. May 23. He states he saw the orthopedist staff yesterday. He remains NWB. Continue therapy intervention. He is using wheelchair for mobility. Qualifiers: Encounter type: subsequent encounter Fracture type: closed Fracture healing: with routine healing Qualified Code(s): S82.891D - Other fracture of right lower leg, subsequent encounter for closed fracture with routine healing (10) Abdominal discomfort Current Visit: Yes Status: Acute Assessment and plan: May 15. Order KUB and labs to further evaluate. May 16. KUB unremarkable. Will do abdominal CT scan to further evaluate. May 17. Abdominal CT scan unremarkable. Will discontinue Phenergan and give trial of scheduled Reglan for possible gastroparesis. May 18. Improved. Continue Reglan. May 21. He states it has resolved. Continue Reglan. May 23. Remains resolved. Reglan will be tapered. - Subjective Interval history: May 14. He complains of nausea and slightly loose stools. He states he has constant pain in his right ankle from the fracture. May 15. He complains of ongoing nausea and has had vomiting today. He states his stools are still loose. May 16. I was contacted during the night that he had swallowed a medicine cup. The accuracy of this claim is uncertain. He has no new complaints today. He states he is still nauseated and had a episode of vomiting since I saw him yesterday. May 17. He has no new complaints. He states he still has nausea. May 18. He has no new complaints and states he feels better. His nausea h as lessened. May 19. He has no new complaints. He still has some nausea. May 20. Nursing staff reported he was confused earlier. He has no specific complaints now. He states his nausea has lessened. May 21. He hit his head on a bed rail earlier this morning. He states there is still some pain and sensation of dizziness. He denies abdominal discomfort at this time. May 23. He has no new complaints and feels he is making progress. - Constitutional Vitals: Temp Pulse Resp BP Pulse Ox 98.2 F 90 18 128/80 90 05/23/18 09:00 05/23/18 09:00 05/23/18 09:00 05/23/18 09:00 05/23/18 09:00 Exam: He is resting comfortably in bed and appears in no acute distress. His affect is bright and cheerful. He is appropriate in conversation. I reviewed his medications and lab results. Internal Medicine: Result - Labs CBC & Chem 7: 05/20/18 05:45 05/20/18 05:45 - ABG Interpretation ABG results: ABG ABG pH 7.45 pH Units (7.32-7.45) 05/17/18 17:24 ABG pCO2 46 mmHg (35-45) H 05/17/18 17:24 ABG pO2 74 mmHg (85-104) L 05/17/18 17:24 ABG O2 Saturation 95 % (95-98) 05/17/18 17:24 Consult Discharge Plan - Plan Referrals: NONE,PCP [Primary Care Provider] - 1 week
[2018-05-23] MEDS: hydrOXYzine pamoate 25 MG CAPSULE PO PRN (20:37)
[2018-05-23] MEDS: Gabapentin 300 MG CAPSULE PO SCH (20:38)
[2018-05-23] MEDS: Fluticasone Propionate Nasal 50 MCG/SPRAY BOTTLE NS SCH (20:41)
[2018-05-24] MEDS: Ascorbic Acid 500 MG TABLET PO SCH (06:24)
[2018-05-24] MEDS: Cholecalciferol (D-3) 1,000 UNIT TABLET PO SCH (09:51)
[2018-05-24] MEDS: Ranolazine 500 MG TAB.ER.12H PO SCH ×2 (09:51→20:03)
[2018-05-24] MEDS: Carbidopa/Levodopa 25/100 TABLET PO SCH ×4 (09:51→20:07)
[2018-05-24] MEDS: Insulin DETEMIR 100 UNIT/ML X5UNITS SQ SCH ×2 (09:53→20:06)
[2018-05-24] MEDS: Insulin LISPRO 300 UNITS/3 ML VIAL SQ SCH ×4 (09:53→20:07)
[2018-05-24] MEDS: Acetaminophen 325 MG TABLET PO PRN (16:00)
[2018-05-24] MEDS: Gabapentin 300 MG CAPSULE PO SCH (20:03)
[2018-05-24] MEDS: *HR* HYDROcodone/Acet 5/325 mg TABLET PO PRN (20:03)
[2018-05-24] MEDS: Fluticasone Propionate Nasal 50 MCG/SPRAY BOTTLE NS SCH (20:07)
[2018-05-25] MEDS: Ondansetron ODT 4 MG TAB.RAPDIS SL PRN ×2 (05:39→20:47)
[2018-05-25] MEDS: Ascorbic Acid 500 MG TABLET PO SCH (07:54)
[2018-05-25] MEDS: Cholecalciferol (D-3) 1,000 UNIT TABLET PO SCH (07:55)
[2018-05-25] MEDS: Ranolazine 500 MG TAB.ER.12H PO SCH ×2 (07:55→20:47)
[2018-05-25] MEDS: Insulin LISPRO 300 UNITS/3 ML VIAL SQ SCH ×4 (07:57→20:48)
[2018-05-25] MEDS: Carbidopa/Levodopa 25/100 TABLET PO SCH ×4 (09:09→20:48)
[2018-05-25] MEDS: Insulin DETEMIR 100 UNIT/ML X5UNITS SQ SCH ×2 (09:13→20:48)
[2018-05-25] MEDS: Aspirin 81 MG TAB.CHEW PO SCH (09:15)
--- NOTE | 2018-05-25 12:33 | Internal Med Progress Note ---
Date of Encounter: 05/25/18 Time of Encounter: 12:25 - Assessment and plan (1) Hypertension Current Visit: No Status: Chronic Assessment and plan: May 14. Not presently taking anti-hypertensive medication. Continue to monitor. May 23. Blood pressure stable. Remain off antihypertensive medication. Qualifiers: Hypertension type: essential hypertension Qualified Code(s): I10 - Essential (primary) hypertension (2) Diabetes Current Visit: No Status: Chronic Assessment and plan: May 14. Hemoglobin A1c was 9.0% on 04/25/2018. Continue Accu-Cheks with SSI. May 15. Accu-Chek show significant fluctuation. Continue to monitor. May 17. Nursing staff reported to me that his insulin pump has been disconnected. Will order Accu-Cheks with medium dose SSI. May 18. Blood sugars show significant fluctuation. Continue Accu-Cheks with SSI. May 19. Insulin pump is not functioning. Start Levemir 10 units twice a day and continue Accu-Cheks with medium dose SSI. May 20. Continue Levemir and Accu-Cheks with SSI. May 21. Blood sugars are higher than desirable. Increase Levemir to 15 units twice daily. May 23. Blood sugars improved. Continue present regimen. 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 TSH further elevated at 309.85. He states he has been taking Synthroid at home as prescribed. Check T4 and T3 levels in a.m. May 15. Free T4 and free T3 are both low at 0.53 ng/dl and 1.79 pg/mL respectively. Increase Synthroid to 300 g daily. May 16. Continue higher dose Synthroid. Qualifiers: Hypothyroidism type: unspecified Qualified Code(s): E03.9 - Hypothyroidism, unspecified (4) Hyperuricemia Current Visit: No Status: Chronic Assessment and plan: May 14. Uric acid level normal at 5.5. (5) L1 vertebral fracture Current Visit: No Status: Acute Assessment and plan: May 14. Continue analgesics and therapy. May 19. Opioids were discontinued and involuntary muscle jerking appears to have lessened. He does not complain of pain. Continue Tylenol and Neurontin. May 25. Minimal discomfort. Continue Tylenol and Neurontin. Qualifiers: Encounter type: initial encounter Fracture type: closed Fracture morphology: unspecified fracture morphology Qualified Code(s): S32.019A - Unspecified fracture of first lumbar vertebra, initial encounter for closed fracture (6) ESRD (end stage renal disease) on dialysis Current Visit: No Status: Chronic Assessment and plan: May 14. Continue MWF hemodialysis. (7) Anemia Current Visit: No Status: Chronic Assessment and plan: May 14. Anemia testing showed iron 38, transferrin saturation 14%, transferrin 201, ferritin 227, B12 358, and folate 6.0. Start ferrous sulfate with ascorbic acid in a.m. May 20. Hemoglobin improved to 8.7. Continue ferrous sulfate with ascorbic acid. Qualifiers: Anemia type: unspecified type Qualified Code(s): D64.9 - Anemia, unspecified (8) Ankle fracture, right Current Visit: Yes Status: Acute Assessment and plan: May 15. Continue analgesics. Follow up with orthopedist as directed. May 20. Orthopedic follow-up is scheduled for 06/22/2018. Continue NWB status. Wheelchair mobility will be taught to patient and spouse. May 23. He states he saw the orthopedist staff yesterday. He remains NWB. Continue therapy intervention. He is using wheelchair for mobility. Qualifiers: Encounter type: subsequent encounter Fracture type: closed Fracture healing: with routine healing Qualified Code(s): S82.891D - Other fracture of right lower leg, subsequent encounter for closed fracture with routine healing - Subjective Interval history: May 14. He complains of nausea and slightly loose stools. He states he has constant pain in his right ankle from the fracture. May 15. He complains of ongoing nausea and has had vomiting today. He states his stools are still loose. May 16. I was contacted during the night that he had swallowed a medicine cup. The accuracy of this claim is uncertain. He has no new complaints today. He states he is still nauseated and had a episode of vomiting since I saw him y esterday. May 17. He has no new complaints. He states he still has nausea. May 18. He has no new complaints and states he feels better. His nausea has lessened. May 19. He has no new complaints. He still has some nausea. May 20. Nursing staff reported he was confused earlier. He has no specific complaints now. He states his nausea has lessened. May 21. He hit his head on a bed rail earlier this morning. He states there is still some pain and sensation of dizziness. He denies abdominal discomfort at this time. May 23. He has no new complaints and feels he is making progress. May 25. He has no new complaints. He has minimal back pain and denies abdominal discomfort. He reports his involuntary jerking has resolved. - Constitutional Vitals: Temp Pulse Resp BP Pulse Ox 98.2 F 86 17 150/74 93 05/25/18 07:27 05/25/18 07:27 05/25/18 07:27 05/25/18 07:27 05/25/18 07:27 Exam: He is resting comfortably on the side of bed. He is pleasant and talkative and appropriate in conversation. I reviewed his medications and lab results. Internal Medicine: Result - Labs CBC & Chem 7: 05/20/18 05:45 05/20/18 05:45 - ABG Interpretation ABG results: ABG ABG pH 7.45 pH Units (7.32-7.45) 05/17/18 17:24 ABG pCO2 46 mmHg (35-45) H 05/17/18 17:24 ABG pO2 74 mmHg (85-104) L 05/17/18 17:24 ABG O2 Saturation 95 % (95-98) 05/17/18 17:24 Consult Discharge Plan - Plan Referrals: NONE,PCP [Primary Care Provider] - 1 week
[2018-05-25] MEDS: hydrOXYzine pamoate 25 MG CAPSULE PO PRN (20:47)
[2018-05-25] MEDS: Gabapentin 300 MG CAPSULE PO SCH (20:47)
[2018-05-25] MEDS: *HR* HYDROcodone/Acet 5/325 mg TABLET PO PRN (22:49)
[2018-05-26] MEDS: Fluticasone Propionate Nasal 50 MCG/SPRAY BOTTLE NS SCH ×2 (04:44→20:04)
[2018-05-26] MEDS: Acetaminophen 325 MG TABLET PO PRN (05:47)
[2018-05-26] MEDS: Ascorbic Acid 500 MG TABLET PO SCH (05:48)
[2018-05-26] MEDS: Carbidopa/Levodopa 25/100 TABLET PO SCH ×4 (08:38→20:01)
[2018-05-26] MEDS: Cholecalciferol (D-3) 1,000 UNIT TABLET PO SCH (08:41)
[2018-05-26] MEDS: Insulin LISPRO 300 UNITS/3 ML VIAL SQ SCH ×4 (08:45→20:03)
[2018-05-26] MEDS: Insulin DETEMIR 100 UNIT/ML X5UNITS SQ SCH ×2 (15:16→20:04)
[2018-05-26] MEDS: Ranolazine 500 MG TAB.ER.12H PO SCH ×2 (15:17→20:01)
[2018-05-26] MEDS: Ondansetron ODT 4 MG TAB.RAPDIS SL PRN ×2 (16:43→19:27)
[2018-05-26] MEDS: *HR* HYDROcodone/Acet 5/325 mg TABLET PO PRN (20:02)
[2018-05-26] MEDS: Gabapentin 300 MG CAPSULE PO SCH (20:02)
[2018-05-27] MEDS: Ascorbic Acid 500 MG TABLET PO SCH (06:28)
[2018-05-27] MEDS: Carbidopa/Levodopa 25/100 TABLET PO SCH ×4 (08:33→19:52)
[2018-05-27] MEDS: Insulin LISPRO 300 UNITS/3 ML VIAL SQ SCH ×4 (08:34→19:54)
[2018-05-27] MEDS: Insulin DETEMIR 100 UNIT/ML X5UNITS SQ SCH ×2 (11:00→19:50)
[2018-05-27] MEDS: Ranolazine 500 MG TAB.ER.12H PO SCH ×2 (11:02→19:47)
[2018-05-27] MEDS: Cholecalciferol (D-3) 1,000 UNIT TABLET PO SCH (11:06)
[2018-05-27] MEDS: Aspirin 81 MG TAB.CHEW PO SCH (11:07)
[2018-05-27] MEDS: Gabapentin 300 MG CAPSULE PO SCH (19:48)
[2018-05-27] MEDS: *HR* HYDROcodone/Acet 5/325 mg TABLET PO PRN (19:48)
[2018-05-27] MEDS: Fluticasone Propionate Nasal 50 MCG/SPRAY BOTTLE NS SCH (19:51)
[2018-05-28] MEDS: Acetaminophen 325 MG TABLET PO PRN (02:25)
[2018-05-28] MEDS: Ascorbic Acid 500 MG TABLET PO SCH (06:13)
[2018-05-28] MEDS: Insulin LISPRO 300 UNITS/3 ML VIAL SQ SCH ×4 (08:01→20:44)
[2018-05-28] MEDS: Carbidopa/Levodopa 25/100 TABLET PO SCH ×4 (08:01→20:41)
[2018-05-28] MEDS: Ranolazine 500 MG TAB.ER.12H PO SCH ×2 (08:01→20:40)
[2018-05-28] MEDS: Cholecalciferol (D-3) 1,000 UNIT TABLET PO SCH (08:01)
[2018-05-28] MEDS: Ondansetron ODT 4 MG TAB.RAPDIS SL PRN (08:02)
[2018-05-28] MEDS: *HR* HYDROcodone/Acet 5/325 mg TABLET PO PRN ×3 (08:02→22:06)
--- NOTE | 2018-05-28 11:22 | Internal Med Progress Note ---
Date of Encounter: 05/28/18 Time of Encounter: 11:14 - Assessment and plan (1) Hypertension Current Visit: No Status: Chronic Assessment and plan: May 14. Not presently taking anti-hypertensive medication. Continue to monitor. May 23. Blood pressure stable. Remain off antihypertensive medication. May 28. Blood pressure has gradually increased over the last 3 days. Continue to monitor. Qualifiers: Hypertension type: essential hypertension Qualified Code(s): I10 - Essential (primary) hypertension (2) Diabetes Current Visit: No Status: Chronic Assessment and plan: May 14. Hemoglobin A1c was 9.0% on 04/25/2018. Continue Accu-Cheks with SSI. May 15. Accu-Chek show significant fluctuation. Continue to monitor. May 17. Nursing staff reported to me that his insulin pump has been disconnected. Will order Accu-Cheks with medium dose SSI. May 18. Blood sugars show significant fluctuation. Continue Accu-Cheks with SSI. May 19. Insulin pump is not functioning. Start Levemir 10 units twice a day and continue Accu-Cheks with medium dose SSI. May 20. Continue Levemir and Accu-Cheks with SSI. May 21. Blood sugars are higher than desirable. Increase Levemir to 15 units twice daily. May 23. Blood sugars improved. Continue present regimen. May 28. Blood sugars show significant fluctuation. Continue to monitor. 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 TSH further elevated at 309.85. He states he has been taking Synthroid at home as prescribed. Check T4 and T3 levels in a.m. May 15. Free T4 and free T3 are both low at 0.53 ng/dl and 1.79 pg/mL respectively. Increase Synthroid to 300 g daily. May 16. Continue higher dose Synthroid. Qualifiers: Hypothyroidism type: unspecified Qualified Code(s): E03.9 - Hypothyroidism, unspecified (4) Hyperuricemia Current Visit: No Status: Chronic Assessment and plan: May 14. Uric acid level normal at 5.5. (5) L1 vertebral fracture Current Visit: No Status: Acute Assessment and plan: May 14. Continue analgesics and therapy. May 19. Opioids were discontinued and involuntary muscle jerking appears to have lessened. He does not complain of pain. Continue Tylenol and Neurontin. May 25. Minimal discomfort. Continue Tylenol and Neurontin. May 28. He reports back pain is constant. Change Tylenol to 500 mg every 4 hours while awake. Qualifiers: Encounter type: initial encounter Fracture type: closed Fracture morphology: unspecified fracture morphology Qualified Code(s): S32.019A - Unspecified fracture of first lumbar vertebra, initial encounter for closed f racture (6) ESRD (end stage renal disease) on dialysis Current Visit: No Status: Chronic Assessment and plan: May 14. Continue MWF hemodialysis. (7) Anemia Current Visit: No Status: Chronic Assessment and plan: May 14. Anemia testing showed iron 38, transferrin saturation 14%, transferrin 201, ferritin 227, B12 358, and folate 6.0. Start ferrous sulfate with ascorbic acid in a.m. May 20. Hemoglobin improved to 8.7. Continue ferrous sulfate with ascorbic acid. Qualifiers: Anemia type: unspecified type Qualified Code(s): D64.9 - Anemia, unspecified (8) Ankle fracture, right Current Visit: Yes Status: Acute Assessment and plan: May 15. Continue analgesics. Follow up with orthopedist as directed. May 20. Orthopedic follow-up is scheduled for 06/22/2018. Continue NWB status. Wheelchair mobility will be taught to patient and spouse. May 23. He states he saw the orthopedist staff yesterday. He remains NWB. Continue therapy intervention. He is using wheelchair for mobility. Qualifiers: Encounter type: subsequent encounter Fracture type: closed Fracture healing: with routine healing Qualified Code(s): S82.891D - Other fracture of right lower leg, subsequent encounter for closed fracture with routine healing - Subjective Interval history: May 14. He complains of nausea and slightly loose stools. He states he has constant pain in his right ankle from the fracture. May 15. He complains of ongoing nausea and has had vomiting today. He states his stools are still loose. May 16. I was contacted during the night that he had swallowed a medicine cup. The accuracy of this claim is uncertain. He has no new complaints today. He states he is still nauseated and had a episode of vomiting since I saw him yesterday. May 17. He has no new complaints. He states he still has nausea. May 18. He has no new complaints and states he feels better. His nausea has lessened. May 19. He has no new complaints. He still has some nausea. May 20. Nursing staff reported he was confused earlier. He has no specific complaints now. He states his nausea has lessened. May 21. He hit his head on a bed rail earlier this morning. He states there is still some pain and sensation of dizziness. He denies abdominal discomfort at this time. May 23. He has no new complaints and feels he is making progress. May 25. He has no new complaints. He has minimal back pain and denies abdominal discomfort. He reports his involuntary jerking has resolved. May 28. He has no new complaints. He reports ongoing back pain and right foot pain. - Constitutional Vitals: Temp Pulse Resp BP Pulse Ox 98.1 F 83 16 155/74 96 05/28/18 07:52 05/28/18 07:52 05/28/18 07:52 05/28/18 07:52 05/28/18 07:52 Exam: He is resting comfortably in a chair at bedside. His affect is bright and cheerful. He does not appear to be in significant pain. I reviewed his medications and lab results. Internal Medicine: Result - Labs CBC & Chem 7: 05/20/18 05:45 05/20/18 05:45 - ABG Interpretation ABG results: ABG ABG pH 7.45 pH Units (7.32-7.45) 05/17/18 17:24 ABG pCO2 46 mmHg (35-45) H 05/17/18 17:24 ABG pO2 74 mmHg (85-104) L 05/17/18 17:24 ABG O2 Saturation 95 % (95-98) 05/17/18 17:24 Consult Discharge Plan - Plan Referrals: NONE,PCP [Primary Care Provider] - 1 week
[2018-05-28] MEDS: Insulin DETEMIR 100 UNIT/ML X5UNITS SQ SCH ×2 (12:18→20:43)
[2018-05-28] MEDS: Gabapentin 300 MG CAPSULE PO SCH (20:40)
[2018-05-28] MEDS: Fluticasone Propionate Nasal 50 MCG/SPRAY BOTTLE NS SCH (20:41)
[2018-05-29] MEDS: Ascorbic Acid 500 MG TABLET PO SCH (06:28)
[2018-05-29] MEDS: Insulin LISPRO 300 UNITS/3 ML VIAL SQ SCH ×4 (07:23→23:00)
[2018-05-29] MEDS: Ondansetron ODT 4 MG TAB.RAPDIS SL PRN ×3 (07:51→21:07)
[2018-05-29] MEDS: Carbidopa/Levodopa 25/100 TABLET PO SCH ×4 (14:30→18:25)
[2018-05-29] MEDS: Insulin DETEMIR 100 UNIT/ML X5UNITS SQ SCH ×2 (14:33→23:00)
[2018-05-29] MEDS: Cholecalciferol (D-3) 1,000 UNIT TABLET PO SCH (14:34)
[2018-05-29] MEDS: Ranolazine 500 MG TAB.ER.12H PO SCH ×2 (14:34→23:00)
[2018-05-29] MEDS ORDERED: *HR* Promethazine 25 MG/ML VIAL IM ONE (16:56)
[2018-05-29] MEDS: *HR* HYDROcodone/Acet 5/325 mg TABLET PO PRN (22:59)
[2018-05-29] MEDS: Gabapentin 300 MG CAPSULE PO SCH (22:59)
[2018-05-29] MEDS: Fluticasone Propionate Nasal 50 MCG/SPRAY BOTTLE NS SCH (23:00)
[2018-05-30] MEDS: Ascorbic Acid 500 MG TABLET PO SCH (07:38)
[2018-05-30] MEDS: Carbidopa/Levodopa 25/100 TABLET PO SCH ×4 (08:23→22:15)
[2018-05-30] MEDS: Ondansetron ODT 4 MG TAB.RAPDIS SL PRN (08:23)
[2018-05-30] MEDS: *HR* HYDROcodone/Acet 5/325 mg TABLET PO PRN ×2 (08:23→22:18)
[2018-05-30] MEDS: Cholecalciferol (D-3) 1,000 UNIT TABLET PO SCH (08:23)
[2018-05-30] MEDS: Insulin LISPRO 300 UNITS/3 ML VIAL SQ SCH ×4 (08:24→22:21)
[2018-05-30] MEDS: Ranolazine 500 MG TAB.ER.12H PO SCH ×2 (08:25→22:15)
[2018-05-30] MEDS: Insulin DETEMIR 100 UNIT/ML X5UNITS SQ SCH ×2 (10:04→22:22)
--- NOTE | 2018-05-30 15:28 | Internal Med Progress Note ---
Date of Encounter: 05/30/18 Time of Encounter: 15:15 - Assessment and plan (1) Hypertension Current Visit: No Status: Chronic Assessment and plan: May 14. Not presently taking anti-hypertensive medication. Continue to monitor. May 23. Blood pressure stable. Remain off antihypertensive medication. May 28. Blood pressure has gradually increased over the last 3 days. Continue to monitor. May 30. Blood pressure show significant fluctuation. Remain off antihypertensive medication at this time. Qualifiers: Hypertension type: essential hypertension Qualified Code(s): I10 - Essential (primary) hypertension (2) Diabetes Current Visit: No Status: Chronic Assessment and plan: May 14. Hemoglobin A1c was 9.0% on 04/25/2018. Continue Accu-Cheks with SSI. May 15. Accu-Chek show significant fluctuation. Continue to monitor. May 17. Nursing staff reported to me that his insulin pump has been disconnected. Will order Accu-Cheks with medium dose SSI. May 18. Blood sugars show significant fluctuation. Continue Accu-Cheks wit h SSI. May 19. Insulin pump is not functioning. Start Levemir 10 units twice a day and continue Accu-Cheks with medium dose SSI. May 20. Continue Levemir and Accu-Cheks with SSI. May 21. Blood sugars are higher than desirable. Increase Levemir to 15 units twice daily. May 23. Blood sugars improved. Continue present regimen. May 28. Blood sugars show significant fluctuation. Continue to monitor. May 30. Blood sugar fluctuation persists. Continue to monitor without change in Levemir dose at this time. 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 TSH further elevated at 309.85. He states he has been taking Synthroid at home as prescribed. Check T4 and T3 levels in a.m. May 15. Free T4 and free T3 are both low at 0.53 ng/dl and 1.79 pg/mL respectively. Increase Synthroid to 300 g daily. May 16. Continue higher dose Synthroid. Qualifiers: Hypothyroidism type: unspecified Qualified Code(s): E03.9 - Hypothyroidism, unspecified (4) Hyperuricemia Current Visit: No Status: Chronic Assessment and plan: May 14. Uric acid level normal at 5.5. (5) L1 vertebral fracture Current Visit: No Status: Acute Assessment and plan: May 14. Continue analgesics and therapy. May 19. Opioids were discontinued and involuntary muscle jerking appears to have lessened. He does not complain of pain. Continue Tylenol and Neurontin. May 25. Minimal discomfort. Continue Tylenol and Neurontin. May 28. He reports back pain is constant. Change Tylenol to 500 mg every 4 hours while awake. May 30. Pain has lessened. Continues scheduled Tylenol. Qualifiers: Encounter type: initial encounter Fracture type: closed Fracture morphology: unspecified fracture morphology Qualified Code(s): S32.019A - Unspecified fracture of first lumbar vertebra, initial encounter for closed fracture (6) ESRD (end stage renal disease) on dialysis Current Visit: No Status: Chronic Assessment and plan: May 14. Continue MWF hemodialysis. (7) Anemia Current Visit: No Status: Chronic Assessment and plan: May 14. Anemia testing showed iron 38, transferrin saturation 14%, transferrin 201, ferritin 227, B12 358, and folate 6.0. Start ferrous sulfate with ascorbic acid in a.m. May 20. Hemoglobin improved to 8.7. Continue ferrous sulfate with ascorbic acid. Qualifiers: Anemia type: unspecified type Qualified Code(s): D64.9 - Anemia, u nspecified (8) Ankle fracture, right Current Visit: Yes Status: Acute Assessment and plan: May 15. Continue analgesics. Follow up with orthopedist as directed. May 20. Orthopedic follow-up is scheduled for 06/22/2018. Continue NWB status. Wheelchair mobility will be taught to patient and spouse. May 23. He states he saw the orthopedist staff yesterday. He remains NWB. Continue therapy intervention. He is using wheelchair for mobility. He remains nonweightbearing. He will need a manual wheelchair because of nonweightbearing status on his right leg. The wheelchair will allow mobility related activities of daily living. His ambulatory limitation cannot be sufficiently resolved by use of an appropriately fitted cane or walker. The use of a wheelchair will significantly improve his ability to participate in MRADLs. He will use the wheelchair on a regular basis in the home. He has not expressed unwillingness to use a manual wheelchair at home as prescribed. He webb s a caregiver who is available willing and able to provide assistance with the wheelchair. He will also need a bariatric bedside commode. A front wheeled walker will be ordered also for his occasional short ambulation needs. Qualifiers: Encounter type: subsequent encounter Fracture type: closed Fracture healing: with routine healing Qualified Code(s): S82.891D - Other fracture of right lower leg, subsequent encounter for closed fracture with routine healing - Subjective Interval history: May 14. He complains of nausea and slightly loose stools. He states he has constant pain in his right ankle from the fracture. May 15. He complains of ongoing nausea and has had vomiting today. He states his stools are still loose. May 16. I was contacted during the night that he had swallowed a medicine cup. The accuracy of this claim is uncertain. He has no new complaints today. He states he is still nauseated and had a episode of vomiting since I saw him yesterday. May 17. He has no new complaints. He states he still has nausea. May 18. He has no new complaints and states he feels better. His nausea has lessened. May 19. He has no new complaints. He still has some nausea. May 20. Nursing staff reported he was confused earlier. He has no specific complaints now. He states his nausea has lessened. May 21. He hit his head on a bed rail earlier this morning. He states there is still some pain and sensation of dizziness. He denies abdominal discomfort at this time. May 23. He has no new complaints and feels he is making progress. May 25. He has no new complaints. He has minimal back pain and denies abdominal discomfort. He reports his involuntary jerking has resolved. May 28. He has no new complaints. He reports ongoing back pain and right foot pain. May 30. He has no new complaints. He states his back and foot pain have lessened on scheduled Tylenol. - Constitutional Vitals: Temp Pulse Resp BP Pulse Ox 98.3 F 88 16 155/77 91 05/30/18 06:51 05/30/18 06:51 05/30/18 06:51 05/30/18 06:51 05/30/18 06:51 Exam: He is sitting in a chair at bedside resting comfortably. His affect is bright and cheerful. I reviewed his medications and lab results. Internal Medicine: Result - Labs CBC & Chem 7: 05/20/18 05:45 05/20/18 05:45 - ABG Interpretation ABG results: ABG ABG pH 7.45 pH Units (7.32-7.45) 05/17/18 17:24 ABG pCO2 46 mmHg (35-45) H 05/17/18 17:24 ABG pO2 74 mmHg (85-104) L 05/17/18 17:24 ABG O2 Saturation 95 % (95-98) 05/17/18 17:24 Consult Discharge Plan - Plan Referrals: John Díaz DPM [Partnered Physician] - 1 week (June 12 @ 1:00pm At [facility] in [place].) NONE,PCP [Primary Care Provider] - 1 week
[2018-05-30] MEDS: Gabapentin 300 MG CAPSULE PO SCH (22:14)
[2018-05-30] MEDS: Fluticasone Propionate Nasal 50 MCG/SPRAY BOTTLE NS SCH (22:19)
[2018-05-31] MEDS: Ascorbic Acid 500 MG TABLET PO SCH (06:59)
[2018-05-31 07:29] VITALS: BP 148/89
[2018-05-31] MEDS: Insulin LISPRO 300 UNITS/3 ML VIAL SQ SCH ×3 (09:35→11:05)
--- NOTE | 2018-05-31 09:56 | Discharge Summary ---
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 Diabetes mellitus complication status: with kidney c omplications Diabetes mellitus complication detail: with chronic kidney disease Chronic kidney disease stage: stage 5, not on chronic dialysis Qualified Code(s): E11.22 - Type 2 diabetes mellitus with diabetic chronic kidney disease; N18.5 - Chronic kidney disease, stage 5; Z79.4 - assisted (current) use of insulin (3) Hypothyroidism Priority: Secondary Status: Chronic Qualifiers: Hypothyroidism type: unspecified Qualified Code(s): E03.9 - Hypothyroidism, unspecified (4) Hyperuricemia Priority: Secondary Status: Chronic (5) L1 vertebral fracture Priority: Secondary Status: Acute Qualifiers: Encounter type: initial encounter Fracture type: closed Fracture morphology: unspecified fracture morphology Qualified Code(s): S32.019A - Unspecified fracture of first lumbar vertebra, initial encounter for closed fracture (6) ESRD (end stage renal disease) on dialysis Priority: Secondary Status: Chronic (7) Anemia Priority: Secondary Status: Chronic Qualifiers: Anemia type: unspecified type Qualified Code(s): D64.9 - Anemia, unspecified (8) Ankle fracture, right Priority: Secondary Status: Acute Qualifiers: Encounter type: subsequent encounter Fracture type: closed Fracture healing: with routine healing Qualified Code(s): S82.891D - Other fracture of right lower leg, subsequent encounter for closed fracture with routine healing Hospital course: Mr. Hdz is a 58 year old male who was hospitalized at [facility] May 05- after presenting with multiple syncopal episodes at home. He had fallen May 05 sustaining a right ankle fracture. He had L1 vertebral fracture also from a previous fall. He was stabilized and discharged to [facility] swing bed for rehabilitation therapy prior to returning to independent living. Initial orders were written by the discharging physician at [facility]. I saw him on May 13 and performed a swing bed history and physical. He had physical therapy and occupational therapy evaluations with ongoing interventions. He remained nonweightbearing on his right leg. He will have follow-up appointment with [facility] personnel as scheduled. He was ordered a wheelchair and front wheel walker for ambulatory needs at discharge. He remained off all hypertensive medications. His blood pressure remained at a satisfactory level. Levothyroxin dose was increased to 300 g daily. His PCP can monitor TSH. His insulin pump malfunctioned and he was transitioned to scheduled Levemir injections twice a day with SSI. Blood sugars remained satisfactorily controlled. Anemia testing 05/14/2018 showed iron 38, transferrin saturation 14%, transferrin 201, ferritin 227, B12 358, and folate 6.0. He was started on ferrous sulfate with vitamin C and this will be continued at discharge. He complained of nausea frequently in the first few days of swing bed stay. His medications were adjusted and Reglan was added. His nausea significantly lessened by time of discharge. On May 31 arrangements were complete for him to be discharged home. He will continue MWF hemodialysis. He will follow with his PCP within 1 week. - Time Spent with Patient Total time spent providing and/or coordinating discharge services: - Discharge Medications Prescriptions: Ascorbic Acid [Vitamin C] 500 mg PO 0630 #30 tablet Ferrous Sulfate 325 mg PO 0630 #30 tablet Levothyroxine Sodium [Synthroid] 300 mcg PO DAILY #45 tablet Metoclopramide HCl 5 mg PO BID #60 tablet Omeprazole [PriLOSEC] 20 mg PO DAILY@0630 PRN #30 capsule.dr WICK Reason: Dyspepsia Home Medications: Ranolazine [Ranexa] 1,000 mg PO BID 11/25/14 [History] Carbidopa/Levodopa 25/100 [Sinemet 25/100] 1 tab PO 0800,1200,1600,2000 09/20/15 [History] Fluticasone Propionate Nasal [Flonase] 50 mcg NS 09/20/15 [History] Rosuvastatin [Crestor] 40 mg PO DAILY 09/20/15 [History] Sertraline [Zoloft] 50 mg PO HS 09/20/15 [History] Montelukast [Singulair] 10 mg PO DAILY 02/02/17 [History] Calcitriol 0.5 mcg PO DAILY 11/24/17 [History] Cholecalciferol (D-3) [Vitamin D] 2,000 unit PO DAILY 11/24/17 [History] Nitroglycerin [Nitrostat] 0.4 mg SL Q5MIN PRN MDD [id number] CALL 911 11/24/17 [History] Ondansetron ODT [Zofran ODT] 4 mg SL Q4HR PRN #15 tab.rapdis 01/09/18 [Rx] hydrOXYzine HCl [Hydroxyzine HCl] 50 mg PO HS PRN 04/25/18 [History] Docusate [Colace] 100 mg PO BID PRN 05/05/18 [History] Polyethylene Glycol 3350 [MiraLAX] 17 gm PO DAILY PRN 05/05/18 [History] Subcutaneous Insulin Pump [T:Slim] 1 each MC AD MDD 170 UNIT 05/08/18 [History] Patient Taking Own Medication 1 each SQ AD each 05/11/18 [Rx] Ascorbic Acid [Vitamin C] 500 mg PO 0630 #30 tablet 05/31/18 [Rx] Aspirin 81 mg PO Q48H #0 05/31/18 [Rx] Ferrous Sulfate 325 mg PO 0630 #30 tablet 05/31/18 [Rx] Levothyroxine Sodium [Synthroid] 300 mcg PO DAILY #45 tablet 05/31/18 [Rx] Metoclopramide HCl 5 mg PO BID #60 tablet 05/31/18 [Rx] Omeprazole [PriLOSEC] 20 mg PO DAILY@0630 PRN #30 capsule. 05/31/18 [Rx] Allergies/Adverse Reactions: Allergy/AdvReac Type Severity Reaction Status Date / Time codeine Allergy Rash Verified 05/08/18 13:54 Date of admission: 05/12/18 14:51 Primary care physician: PCP NONE Consults: 05/12/18 14:14 Consult to Occupational Therapy [CONS] Routine Comment: Evaluate, develop and implement POC Reason for Consult: right ankle fracture and syncope Does patient have active BEDREST order?: No Is patient medically & hemodynamically stable?: Yes Patient assessed for mobility or mobilized this visit?: Yes Consult to Physical Therapy [CONS] Routine Comment: Evaluate, develop and implement POC Reason for Consult: right ankle fracture and syncope Does patient have active BEDREST order?: No Is patient medically & hemodynamically stable?: Yes Patient assessed for mobility or mobilized this visit?: Yes 05/12/18 16:04 Consult to Nutrition [CONS] Routine Comment: Consulting Provider: NUTRITION Reason for Dietary Consult: MST Score - Constitutional Vitals: Temp Pulse Resp BP Pulse Ox 98.4 F 81 16 148/89 97 05/31/18 07:19 05/31/18 07:19 05/31/18 07:19 05/31/18 07:19 05/31/18 07:19 - Patient Status Disposition: Home, Self-Care - Discharge Instructions Instructions: Syncope (DC), Diabetes Mellitus Type 2 in Adults (DC) Follow Up With: John Díaz DPM [Partnered Physician] - 1 week (June 12 @ 1:00pm At [facility] in [place].) NONE,PCP [Primary Care Provider] - 1 week - Diet and Activity Activity: as per physical therapy Diet: diabetic diet
[2018-05-31] MEDS: Ranolazine 500 MG TAB.ER.12H PO SCH (10:02)
[2018-05-31] MEDS: Cholecalciferol (D-3) 1,000 UNIT TABLET PO SCH (10:03)
[2018-05-31] MEDS: Insulin DETEMIR 100 UNIT/ML X5UNITS SQ SCH (10:03)
[2018-05-31] MEDS: Ondansetron ODT 4 MG TAB.RAPDIS SL PRN (10:06)
[2018-05-31] MEDS: Carbidopa/Levodopa 25/100 TABLET PO SCH ×2 (10:06→11:06)
--- NOTE | 2018-05-31 10:47 | Physician Discharge Referral ---
Home Health/Hosp Referral Info Transfer to: Home Health Attending Provider: Saravanan Provider in Charge Post Discharge: PCP - Diagnosis (1) Ankle fracture, right Priority: Primary Status: Acute (2) Hypertension Priority: Secondary Status: Chronic (3) Diabetes Priority: Secondary Status: Chronic (4) Hypothyroidism Priority: Secondary Status: Chronic (5) Hyperuricemia Priority: Secondary Status: Chronic (6) L1 vertebral fracture Priority: Secondary Status: Acute (7) ESRD (end stage renal disease) on dialysis Priority: Secondary Status: Chronic (8) Anemia Priority: Secondary Status: Chronic - Respiratory Orders Smoking Cessation: Smoking cessation has been advised. For more information, call the [place] Tobacco Quit Line at 0-626-ZQJV-NOW. - Diet/Nutrition Diet/Nutrition Orders: No Concentrated Sweets - Activity Activity Orders: Walker (Bariatric wheelchair as needed while NWB right foot. Frontwheel walker for limited ambulation in interim.) - Services Needed Following services are medically necessary services: Nursing, Home Health Aide, Physical Therapy, Occupational Therapy - Transfer Medications Prescriptions: Ascorbic Acid [Vitamin C] 500 mg PO 0630 #30 tablet Ferrous Sulfate 325 mg PO 0630 #30 tablet Levothyroxine Sodium [Synthroid] 300 mcg PO DAILY #45 tablet Metoclopramide HCl 5 mg PO BID #60 tablet Omeprazole [PriLOSEC] 20 mg PO DAILY@0630 PRN #30 capsule.dr WICK Reason: Dyspepsia Home Medications: Ranolazine [Ranexa] 1,000 mg PO BID 11/25/14 [History] Carbidopa/Levodopa 25/100 [Sinemet 25/100] 1 tab PO 0800,1200,1600,2000 09/20/15 [History] Fluticasone Propionate Nasal [Flonase] 50 mcg NS 09/20/15 [History] Rosuvastatin [Crestor] 40 mg PO DAILY 09/20/15 [History] Sertraline [Zoloft] 50 mg PO HS 09/20/15 [History] Montelukast [Singulair] 10 mg PO DAILY 02/02/17 [History] Calcitriol 0.5 mcg PO DAILY 11/24/17 [History] Cholecalciferol (D-3) [Vitamin D] 2,000 unit PO DAILY 11/24/17 [History] Nitroglycerin [Nitrostat] 0.4 mg SL Q5MIN PRN MDD [id number] CALL 911 11/24/17 [History] Ondansetron ODT [Zofran ODT] 4 mg SL Q4HR PRN #15 tab.rapdis 01/09/18 [Rx] hydrOXYzine HCl [Hydroxyzine HCl] 50 mg PO HS PRN 04/25/18 [History] Docusate [Colace] 100 mg PO BID PRN 05/05/18 [History] Polyethylene Glycol 3350 [MiraLAX] 17 gm PO DAILY PRN 05/05/18 [History] Subcutaneous Insulin Pump [T:Slim] 1 each MC AD MDD 170 UNIT 05/08/18 [History] Patient Taking Own Medication 1 each SQ AD each 05/11/18 [Rx] Ascorbic Acid [Vitamin C] 500 mg PO 0630 #30 tablet 05/31/18 [Rx] Aspirin 81 mg PO Q48H #0 05/31/18 [Rx] Ferrous Sulfate 325 mg PO 0630 #30 tablet 05/31/18 [Rx] Levothyroxine Sodium [Synthroid] 300 mcg PO DAILY #45 tablet 05/31/18 [Rx] Metoclopramide HCl 5 mg PO BID #60 tablet 05/31/18 [Rx] Omeprazole [PriLOSEC] 20 mg PO DAILY@0630 PRN #30 capsule. 05/31/18 [Rx] Allergies/Adverse Reactions: Allergy/AdvReac Type Severity Reaction Status Date / Time codeine Allergy Rash Verified 05/08/18 13:54 Certification: Further, I certify that my clinical findings support that this patient is homebound (i.e. absences from home require considerable and taxing effort and are for medical reasons or uatsdin services or infrequently or short duration when for other reasons) because: Homebound Reason: Leaving home requires considerable and taxing effort due to condition (NWB status right foot fracture) Attestation: My signature below is to certify that this patient is under my care and that I, or nurse practitioner, or a physician's photo studio assistant working with me, has a [id number] encounter with this patient.
== END 2018-05-31 16:21 | disposition home or self-care (01) | DRG 559 ==
LOC: INPPIK 14:51
PROVIDERS: ADMIT Internal Medicine; ATTEND Internal Medicine

== ENCOUNTER 2018-08-30 12:14 | Inpatient (IN) ==
[2018-08-30] MEDS ORDERED: hydrOXYzine pamoate 25 MG CAPSULE PO PRN (17:41)
[2018-08-30] MEDS ORDERED: Nitroglycerin 0.4 MG TAB.SUBL SL PRN (17:41)
[2018-08-30] MEDS ORDERED: *HR* Dextrose 50 % in Water (Vial) 50 ML VIAL IVP PRN (18:14)
[2018-08-30] MEDS ORDERED: D5% in Water 1,000 ML IVC PRN (18:14)
[2018-08-30] MEDS ORDERED: Dextrose Gel 15 GM/37.5 ML TUBE PO PRN (18:14)
[2018-08-30] MEDS ORDERED: Insulin DETEMIR 100 UNIT/ML X5UNITS SQ SCH (21:00)
[2018-08-30] MEDS: Gabapentin 300 MG CAPSULE PO SCH (21:49)
[2018-08-30] MEDS: Fluticasone Propionate Nasal 50 MCG/SPRAY BOTTLE NS SCH (21:50)
[2018-08-30] MEDS: Carbidopa/Levodopa 25/100 TABLET PO SCH (21:53)
[2018-08-31] MEDS: Insulin LISPRO 300 UNITS/3 ML VIAL SQ SCH ×3 (08:04→16:28)
[2018-08-31] MEDS: Dextrose Gel 15 GM/37.5 ML TUBE PO PRN ×2 (08:04→08:32)
[2018-08-31] MEDS: Multivit/Ca/Min/Fe/FA 1 TAB TABLET PO SCH (09:08)
[2018-08-31] MEDS: Cholecalciferol (D-3) 1,000 UNIT TABLET PO SCH (09:08)
[2018-08-31] MEDS: Isosorbide MONOnitrate (24 HR) 60 MG TAB.ER.24H PO SCH (09:09)
[2018-08-31] MEDS: Metoprolol XL (24 HR) Succ 25 MG TAB.ER.24H PO SCH (09:09)
[2018-08-31] MEDS: Magnesium Oxide 400 MG TABLET PO SCH (09:09)
[2018-08-31] MEDS: Fluticasone Propionate Nasal 50 MCG/SPRAY BOTTLE NS SCH ×2 (09:09→19:50)
[2018-08-31] MEDS: Carbidopa/Levodopa 25/100 TABLET PO SCH ×4 (09:11→22:32)
--- NOTE | 2018-08-31 17:31 | Internal Med History&Physical ---
Date of Encounter: 08/31/18 Time of Encounter: 16:50 Assessment and Plan (1) Coronary artery disease Current visit: No Status: Chronic Continue aspirin, Plavix, Imdur, Toprol-XL, and Lipitor Qualifiers: Coronary Disease-Associated Artery/Lesion type: [place] artery [place] vs. transplanted heart: [place] heart Associated angina: without angina Qualified Code(s): I25.10 - Atherosclerotic heart disease of [place] coronary artery without angina pectoris (2) Tinea corporis Current visit: Yes Status: Acute Start ketoconazole cream. (3) Weakness Current visit: Yes Status: Acute PT and OT evaluations have been ordered. (4) Hypertension Current visit: No Status: Chronic Blood pressure has shown significant decrease since [facility] hospitalization. Continue to monitor and adjust medications as needed. Qualifiers: Hypertension type: essential hypertension Qualified Code(s): I10 - E ssential (primary) hypertension (5) Diabetes Current visit: No Status: Chronic Hemoglobin A1c was 10.7% on 08/19/2018. He developed hypoglycemia earlier today. Levemir will be reduced and Accu-Cheks with SSI will be done. 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 He was discharged from [facility] swing bed April 2018 on 300 g daily. The dose was reduced to 200 g daily on an [facility] discharge orders I will increase it back to 300 g daily. Qualifiers: Hypothyroidism type: unspecified Qualified Code(s): E03.9 - Hypothyroidism, unspecified (8) Hyperuricemia Current visit: No Status: Chronic Uric acid level was 5.5 on 05/14/2018. Observe without further treatment. (9) ESRD (end stage renal disease) on dialysis Current visit: No Status: Chronic Continue MWF hemodialysis. (10) Anemia Current visit: No Status: Chronic Check anemia testing in a.m. Qualifiers: Anemia type: due to chronic kidney disease Chronic kidney disease stage: on chronic dialysis Qualified Code(s): N18.6 - End stage renal disease; D63.1 - Anemia in chronic kidney disease; Z99.2 - Dependence on renal dialysis (11) Hypomagnesemia Current visit: Yes Status: Acute Magnesium level was normal at 1.7 on 08/28/2018. Continue magnesium oxide 400 mg daily. Internal Medicine - H&P: HPI Chief complaint: DKA, respiratory failure, non-STEMI Admitted From: Hospital to Hospital Transfer Plans for Post Hospital Care: Home History of present illness: Mr. Hzd is a 58 year old male who was hospitalized at [facility] August 18-August 30 after presenting with DKA and non-STEMI. He developed respiratory insufficiency requiring intubation. He had ongoing hemodialysis for CKD5. He was stabilized and discharged to [facility] swing bed for rehabilitation therapy prior to returning home. Past Med Surg Social Fam HX - Past Medical History Medical history: coronary artery disease, diabetes, GERD, hyperlipidemia, hypertension, myocardial infarction, renal disease, thyroid disease, other Additional medical history: left arm shunt, fatty liver disease, Psychiatric history: depression - Past Surgical History Surgical History: angioplasty/stent, cholecystectomy, other Additional surgical history: Left Heart Cath 3 stents, Left Upper Extremity AV Shunt, right chest dialysis port - Social History Smoking Status: Never smoker Smokeless Tobacco Status: No Alcohol use: none Drug use: none - Family History Mother Adopted: No Living Status: Still Living Hx Family Cardiac Disorders: Yes (dad and brother massive stroke) Hx Family Respiratory Disorders: No Hx Family Cancer: Yes Hx Family GI Disorders: No Hx Family Endocrine Disorder: No Hx Family Neuromuscular Disorders: No Hx Family Neurologic Disorders: No Hx Family HEENT Disorders: No Hx Family Autoimmune Disorders: No Father Living Status: Hx Family Cardiac Disorders: Yes Brother Living Status: Hx Family Cardiac Disorders: Yes Hx Family Neurologic Disorders: Yes (stroke) Internal Medicine - H&P: Meds Carbidopa/Levodopa 25/100 [Sinemet 25/100] 1 tab PO 0800,1200,1600,2000 09/20/15 [History] Fluticasone Propionate Nasal [Flonase] 1 spray NS BID 09/20/15 [History] Sertraline [Zoloft] 50 mg PO HS 09/20/15 [History] Montelukast [Singulair] 10 mg PO DAILY 02/02/17 [History] Cholecalciferol (D-3) [Vitamin D] 2,000 unit PO DAILY 11/24/17 [History] Nitroglycerin [Nitrostat] 0.4 mg SL Q5MIN PRN MDD [id number] CALL 911 11/24/17 [History] Ondansetron ODT [Zofran ODT] 4 mg SL Q4HR PRN #15 tab.rapdis 01/09/18 [Rx] hydrOXYzine HCl [Hydroxyzine HCl] 50 mg PO HS PRN 04/25/18 [History] Docusate [Colace] 100 mg PO BID PRN 05/05/18 [History] Aspirin 81 mg PO Q48H #0 05/31/18 [Rx] Levothyroxine Sodium [Synthroid] 200 mcg PO DAILY 06/06/18 [History] Omeprazole [PriLOSEC] 20 mg PO DAILY PRN 06/06/18 [History] Clopidogrel [Plavix] 75 mg PO DAILY #30 tablet 06/08/18 [Rx] Folic Acid/Vit B Complex and C [Dialyvite Tablet] 1 tab PO DAILY 08/18/18 [History] Insulin DETEMIR [Levemir] 25 unit SQ HS 08/18/18 [History] Insulin LISPRO [HumaLOG] 8 unit SQ TIDWM 08/18/18 [History] Ipratropium [place] 2 spray NS BID 08/18/18 [History] Lidocaine/Prilocaine [Emla] 1 appl TP AD 08/18/18 [History] Magnesium Oxide [Mag-Ox] 400 mg PO DAILY 08/18/18 [History] Metoprolol Succinate [Toprol Xl] 25 mg PO DAILY 08/18/18 [History] Polyethylene Glycol 3350 [MiraLAX Powder Bulk 17.9 Oz] 17 gm PO DAILY PRN 08/18/18 [History] Promethazine [Phenergan] 25 mg PO Q6H PRN 08/18/18 [History] Atorvastatin [Lipitor] 80 mg PO HS tablet 08/30/18 [Rx] Carvedilol [Coreg] 3.125 mg PO BIDWM tablet 08/30/18 [Rx] Gabapentin 600 mg PO HS #3 tablet 08/30/18 [Rx] Isosorbide MONOnitrate (24 HR) [Imdur] 60 mg PO DAILY tab.er.24h 08/30/18 [Rx] Allergy/AdvReac Type Severity Reaction Status Date / Time codeine Allergy Rash Verified 06/13/18 14:40 oxycodone [From Percocet] Allergy Rash Verified 08/18/18 14:14 All Systems PM: A 10-system review of systems was performed and is negative for pertinent findings except as documented above in the HPI. Review of systems: Review of systems from his February 2018 [facility] hospitalization were reviewed and revised as below. Gen.: His weight has minimally changed from 126.006 kg November 2013 to present weight of 117.5 kg kg. Cardiovascular: He has history of hypertension and known ASHD status post [place] 1995 and PTCA with 2 stents in 2012 at [facility]. [facility] 06/13/2018 showed LVEF 40%, LMCA angiographically free of disease, 35% stenosis in proximal LAD, 80% stenosis in mid LAD, 90% stenosis in ostial first diagonal, 25% stenosis in ostial second diagonal, 25% stenosis in proximal circumflex, 25% stenosis in second marginal, 15% stenosis in proximal ramus, and 100% stenosis in distal RCA with [id number] collaterals. The proximal RCA and mid RCA had patent stents from previous procedure. Echocardiogram 04/25/2018 showed LVEF of 65-70%. No significant valvular abnormalities were seen. Mid ventricular septum and posterior wall thickness measurements were 1.43 and 1.40 cm respectively. Limited echocardiogram 08/18/2018 showed LVEF 40-45%. There is no history of DVT or pulmonary embolus. Respiratory: He is a lifelong nonsmoker has no known chronic lung disease. He has OTIS and wears BiPAP at bedtime. GI: He had cholecystectomy approximate 2015. He has GERD and NAFLD but denies other disorders of his liver or exocrine pancreas. He reports an unremarkable nuclear medicine gastric emptying study several years ago. : He has chronic kidney disease stage 5 and has been on MWF hemodialysis since April 2018. 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 He denies BPH or other kidney bladder prostate disorders Neurologic: He has been diagnosed with Parkinson's disease but denies large distribution strokes or seizures. Endocrine: He was diagnosed with DM 2 in 1986. He has DPN, hypothyroidism, and hyperlipidemia. Hematology/oncology: He denies blood disorders or cancers. He does have anemia probably secondary to chronic kidney disease. Anemia testing during June 2017 hospitalization showed no factor deficiency. Psychiatric: He has anxiety and depression but denies other mental health issues [place] skeletal: He has DJD and vitamin D deficiency but no known gout or osteoporosis. - Constitutional Vitals: Temp Pulse Resp BP Pulse Ox 97.6 F 78 18 93/48 91 08/31/18 06:31 08/31/18 06:31 08/31/18 06:31 08/31/18 06:31 08/31/18 06:31 Exam: Gen.: He is a well-developed well-nourished male lying in bed who appears in no acute distress HEENT: Head is atraumatic and normocephalic. Eyes: EOMI. There is no scleral icterus. Mouth: Mucosa is moist. Neck: Supple and nontender. There is no thyromegaly or adenopathy noted. Heart: Regular without murmurs gallops or ectopics Lungs: No wheezes or crackles are heard. Abdomen: Soft and nontender. No masses or guarding are noted. Extremities: There is no cyanosis edema or clubbing noted. Dorsalis pedis and posterior tibial pulses are trace palpable bilaterally. Neurologic: Mental status: He is talkative and a good historian. Cranial nerves: Smile is symmetric. Forehead wrinkles bilaterally. Tongue protrudes midline. EOMI. Motor: There is no pronator drift. Cerebellar: Finger to nose is intact bilaterally. Skin: Warm and dry. He has tinea corporis involving significant portion of posterior upper thighs, perianal area, and extending to right gluteal area
[2018-08-31] MEDS: Ketoconazole 2% CRM 15 GM TUBE TP SCH ×2 (19:49→20:01)
[2018-08-31] MEDS: Gabapentin 300 MG CAPSULE PO SCH (19:49)
[2018-08-31] MEDS ORDERED: Insulin DETEMIR 100 UNIT/ML per UNIT SQ ONE (21:00)
[2018-09-01 06:36] LABS: Basophils # 0.1 K/mcL (0.0-0.2); Basophils % 0.5 %; Eosinophils # 0.2 K/mcL (0.0-0.6); Eosinophils % 1.8 %; Hematocrit 27.7 % (37.5-50.1); Hemoglobin 8.6 g/dL (12.9-16.9); Lymphocytes # 2.3 K/mcL (0.6-4.6); Lymphocytes % 20.5 %; Mean Corpuscular Hemoglobin 27.5 pg (28.0-33.3); Mean Corpuscular Volume 88.5 fL (83.0-100.0); Monocytes # 1.1 K/mcL (0.0-1.3); Monocytes % 10.1 %; Neutrophils # 7.3 K/mcL (1.6-8.9); Platelet Count 384 K/mcL (140-400); Red Blood Count 3.13 M/mcL (4.19-5.50); Red Cell Distribution Width 15.2 % (11.5-14.5); Segmented Neutrophils % 66.1 %
[2018-09-01 08:50] LABS: % Iron Saturation 10 % (20-55); Iron 28 mcg/dL (65-175); Transferrin 195 mg/dL (203-362)
[2018-09-01 09:07] LABS: Ferritin 295 ng/mL (20-250)
[2018-09-01 09:13] LABS: Folate 8.7 ng/mL (3.0-16.0)
[2018-09-01] MEDS: Aspirin 81 MG TAB.CHEW PO SCH (09:30)
[2018-09-01] MEDS: Multivit/Ca/Min/Fe/FA 1 TAB TABLET PO SCH (09:30)
[2018-09-01] MEDS: Cholecalciferol (D-3) 1,000 UNIT TABLET PO SCH (09:30)
[2018-09-01] MEDS: Insulin LISPRO 300 UNITS/3 ML VIAL SQ SCH ×3 (09:31→21:19)
[2018-09-01] MEDS: Magnesium Oxide 400 MG TABLET PO SCH (09:31)
[2018-09-01] MEDS: Ketoconazole 2% CRM 15 GM TUBE TP SCH ×2 (09:31→21:13)
[2018-09-01] MEDS: Fluticasone Propionate Nasal 50 MCG/SPRAY BOTTLE NS SCH ×2 (09:31→21:07)
[2018-09-01] MEDS: Carbidopa/Levodopa 25/100 TABLET PO SCH ×4 (09:33→21:24)
[2018-09-01] MEDS: Metoprolol XL (24 HR) Succ 25 MG TAB.ER.24H PO SCH (12:08)
[2018-09-01] MEDS: Isosorbide MONOnitrate (24 HR) 60 MG TAB.ER.24H PO SCH (12:08)
--- NOTE | 2018-09-01 12:42 | Internal Med Progress Note ---
Date of Encounter: 09/01/18 Time of Encounter: 12:34 - Assessment and plan (1) Coronary artery disease Current Visit: No Status: Chronic Assessment and plan: September 01. Continue aspirin, Plavix, Imdur, Toprol-XL, and Lipitor Qualifiers: Coronary Disease-Associated Artery/Lesion type: [place] artery [place] vs. transplanted heart: [place] heart Associated angina: without angina Qualified Code(s): I25.10 - Atherosclerotic heart disease of [place] coronary artery without angina pectoris (2) Tinea corporis Current Visit: Yes Status: Acute Assessment and plan: September 01. Continue ketoconazole cream (3) Weakness Current Visit: Yes Status: Acute Assessment and plan: September 01. Continue PT and OT intervention (4) Hypertension Current Visit: No Status: Chronic Assessment and plan: September 01. Blood pressure borderline low. Continue low-dose Toprol-XL. Qualifiers: Hypertension type: essential hypertension Qualified Code(s): I10 - Essential (primary) hypertension (5) Diabetes Current Visit: No Status: Chronic Assessment and plan: September 01. Hemoglobin A1c was 10.7 on 08/19/2018. Levemir was reduced from 25 units at bedtime to 10 units at bedtime yesterday due to hypoglycemia. He now has hyperglycemia. Levemir dose will be increased to 18 units at bedtime. 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 Continue Lipitor (7) Hypothyroidism Current Visit: No Status: Chronic Assessment and plan: September 01. TSH was elevated at 168.690 on 08/25/2018. Continue Synthroid 300 g daily Qualifiers: Hypothyroidism type: unspecified Qualified Code(s): E03.9 - Hypothyroidism, unspecified (8) Hyperuricemia Current Visit: No Status: Chronic Assessment and plan: September 01. Uric acid level was 5.5 on 05/14/2018. Observe without further treatment. (9) ESRD (end stage renal disease) on dialysis Current Visit: No Status: Chronic Assessment and plan: September 01. Continue MWF hemodialysis (10) Anemia Current Visit: No Status: Chronic Assessment and plan: September 01. Hemoglobin 8.6. Anemia testing shows iron 28, transferrin saturation 10%, transferrin 195, ferritin 295, B12 769, and folate 8.7. Start ferrous sulfate with ascorbic acid in a.m. Qualifiers: Anemia type: due to chronic kidney disease Chronic kidney disease stage: on chronic dialysis Qualified Code(s): N18.6 - End stage renal disease; D63.1 - Anemia in chronic kidney disease; Z99.2 - Dependence on renal dialysis (11) Hypomagnesemia Current Visit: Yes Status: Acute Assessment and plan: September 01. Magnesium level normal at 1.7 on 08/28/2018. Continue magnesium oxide. - Subjective Interval history: September 01. He has no new complaints and feels well. - Constitutional Vitals: Temp Pulse Resp BP Pulse Ox 98.5 F 90 18 96/51 90 09/01/18 07:05 09/01/18 07:05 09/01/18 07:05 09/01/18 07:05 09/01/18 07:05 Exam: He is sitting on the side of the bed resting comfortably and appears in no acute distress. His affect is bright and cheerful. I reviewed his medications and lab results. Internal Medicine: Result - Labs CBC & Chem 7: 09/01/18 06:05 Labs: Short CBC 09/01/18 Range/Units 06:05 WBC 11.0 (4.3-11.1) K/mcL Hgb 8.6 L (12.9-16.9) g/dL Hct 27.7 L (37.5-50.1) % Plt Count 384 (140-400) K/mcL Neutrophils # 7.3 (1.6-8.9) K/mcL Consult Discharge Plan - Plan Referrals: Sangita Macias DO [Primary Care Provider] - 1 week
[2018-09-01] MEDS: Gabapentin 300 MG CAPSULE PO SCH (21:07)
[2018-09-01] MEDS: Insulin DETEMIR 100 UNIT/ML X5UNITS SQ SCH (21:08)
[2018-09-02] MEDS: Ascorbic Acid 500 MG TABLET PO SCH (06:54)
[2018-09-02] MEDS ORDERED: Insulin DETEMIR 100 UNIT/ML X5UNITS SQ STA (08:05)
[2018-09-02] MEDS: Insulin LISPRO 300 UNITS/3 ML VIAL SQ SCH ×4 (08:13→20:58)
[2018-09-02] MEDS: Magnesium Oxide 400 MG TABLET PO SCH (08:14)
[2018-09-02] MEDS: Multivit/Ca/Min/Fe/FA 1 TAB TABLET PO SCH (08:15)
[2018-09-02] MEDS: Cholecalciferol (D-3) 1,000 UNIT TABLET PO SCH (08:16)
[2018-09-02] MEDS: Fluticasone Propionate Nasal 50 MCG/SPRAY BOTTLE NS SCH ×2 (08:18→21:03)
[2018-09-02] MEDS: Isosorbide MONOnitrate (24 HR) 60 MG TAB.ER.24H PO SCH (08:18)
[2018-09-02] MEDS: Carbidopa/Levodopa 25/100 TABLET PO SCH ×4 (08:18→21:08)
[2018-09-02] MEDS: Metoprolol XL (24 HR) Succ 25 MG TAB.ER.24H PO SCH (08:19)
[2018-09-02] MEDS: Ketoconazole 2% CRM 15 GM TUBE TP SCH ×2 (08:19→21:08)
[2018-09-02] MEDS: Gabapentin 300 MG CAPSULE PO SCH (21:02)
[2018-09-02] MEDS: Insulin DETEMIR 100 UNIT/ML X5UNITS SQ SCH (21:03)
[2018-09-03] MEDS: Ascorbic Acid 500 MG TABLET PO SCH (06:39)
[2018-09-03] MEDS: Insulin LISPRO 300 UNITS/3 ML VIAL SQ SCH ×4 (08:33→21:55)
[2018-09-03] MEDS: Cholecalciferol (D-3) 1,000 UNIT TABLET PO SCH (11:58)
[2018-09-03] MEDS: Carbidopa/Levodopa 25/100 TABLET PO SCH ×4 (11:58→21:57)
[2018-09-03] MEDS: Metoprolol XL (24 HR) Succ 25 MG TAB.ER.24H PO SCH (11:58)
[2018-09-03] MEDS: Magnesium Oxide 400 MG TABLET PO SCH (11:58)
[2018-09-03] MEDS: Multivit/Ca/Min/Fe/FA 1 TAB TABLET PO SCH (11:58)
[2018-09-03] MEDS: Aspirin 81 MG TAB.CHEW PO SCH (11:58)
[2018-09-03] MEDS: Isosorbide MONOnitrate (24 HR) 60 MG TAB.ER.24H PO SCH (11:58)
[2018-09-03] MEDS: Fluticasone Propionate Nasal 50 MCG/SPRAY BOTTLE NS SCH ×2 (11:59→21:54)
[2018-09-03] MEDS: Ketoconazole 2% CRM 15 GM TUBE TP SCH ×2 (11:59→21:56)
--- NOTE | 2018-09-03 12:33 | Internal Med Progress Note ---
Date of Encounter: 09/03/18 Time of Encounter: 12:25 - Assessment and plan (1) Coronary artery disease Current Visit: No Status: Chronic Assessment and plan: September 01. Continue aspirin, Plavix, Imdur, Toprol-XL, and Lipitor Qualifiers: Coronary Disease-Associated Artery/Lesion type: [place] artery [place] vs. transplanted heart: [place] heart Associated angina: without angina Qualified Code(s): I25.10 - Atherosclerotic heart disease of [place] coronary artery without angina pectoris (2) Tinea corporis Current Visit: Yes Status: Acute Assessment and plan: September 01. Continue ketoconazole cream (3) Weakness Current Visit: Yes Status: Acute Assessment and plan: September 01. Continue PT and OT intervention (4) Hypertension Current Visit: No Status: Chronic Assessment and plan: September 01. Blood pressure borderline low. Continue low-dose Toprol-XL. September 03. Blood pressure slightly improved. Continue low-dose Toprol-XL. Qualifiers: Hypertension type: essential hypertension Qualified Code(s): I10 - Essential (primary) hypertension (5) Diabetes Current Visit: No Status: Chronic Assessment and plan: September 01. Hemoglobin A1c was 10.7 on 08/19/2018. Levemir was reduced from 25 u nits at bedtime to 10 units at bedtime yesterday due to hypoglycemia. He now has hyperglycemia. Levemir dose will be increased to 18 units at bedtime. September 03. Presently on Levemir 10 units at bedtime. Blood sugars are satisfactory. 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 Continue Lipitor (7) Hypothyroidism Current Visit: No Status: Chronic Assessment and plan: September 01. TSH was elevated at 168.690 on 08/25/2018. Continue Synthroid 300 g daily Qualifiers: Hypothyroidism type: unspecified Qualified Code(s): E03.9 - Hypothyroidism, unspecified (8) Hyperuricemia Current Visit: No Status: Chronic Assessment and plan: September 01. Uric acid level was 5.5 on 05/14/2018. Observe without further treatment. (9) ESRD (end stage renal disease) on dialysis Current Visit: No Status: Chronic Assessment and plan: September 01. Continue MWF hemodialysis (10) Anemia Current Visit: No Status: Chronic Assessment and plan: September 01. Hemoglobin 8.6. Anemia testing shows iron 28, transferrin saturation 10%, transferrin 195, ferritin 295, B12 769, and folate 8.7. Start ferrous sulfate with ascorbic acid in a.m. Qualifiers: Anemia type: due to chronic kidney disease Chronic kidney disease stage: on chronic dialysis Qualified Code(s): N18.6 - End stage renal disease; D63.1 - Anemia in chronic kidney disease; Z99.2 - Dependence on renal dialysis (11) Hypomagnesemia Current Visit: Yes Status: Acute Assessment and plan: September 01. Magnesium level normal at 1.7 on 08/28/2018. Continue magnesium oxide. (12) Cough Current Visit: Yes Status: Acute Assessment and plan: September 03. Chest x-ray will be done today. Labs will be rechecked in a.m. - Subjective Interval history: September 01. He has no new complaints and feels well. September 03. He states he had 2 episodes of vomiting this morning. He has had a cough for approximately 3 days. - Constitutional Vitals: Temp Pulse Resp BP Pulse Ox 99.0 F 97 18 117/53 91 09/03/18 07:28 09/03/18 07:28 09/03/18 07:28 09/03/18 07:28 09/03/18 07:28 Exam: He is sitting in bed resting comfortably and appears in no acute distress. He does not appear dyspneic. Lungs show no wheezes or crackles. I reviewed his medications and lab results. Internal Medicine: Result - Labs CBC & Chem 7: 09/01/18 06:05 Consult Discharge Plan - Plan Referrals: Sangita Macias DO [Primary Care Provider] - 1 week
[2018-09-03] MEDS: Insulin DETEMIR 100 UNIT/ML X5UNITS SQ SCH (21:54)
[2018-09-03] MEDS: Gabapentin 300 MG CAPSULE PO SCH (21:54)
[2018-09-04 05:13] LABS: Basophils # 0.1 K/mcL (0.0-0.2); Basophils % 0.5 %; Eosinophils # 0.1 K/mcL (0.0-0.6); Eosinophils % 0.8 %; Hematocrit 24.4 % (37.5-50.1); Hemoglobin 7.8 g/dL (12.9-16.9); Immature Granulocytes % 0.6 % (0-4); Lymphocytes # 1.9 K/mcL (0.6-4.6); Lymphocytes % 17.6 %; Mean Corpuscular Hemoglobin 27.4 pg (28.0-33.3); Mean Corpuscular Volume 85.6 fL (83.0-100.0); Mean Platelet Volume 9.3 fL (9.4-12.4); Monocytes # 1.2 K/mcL (0.0-1.3); Monocytes % 11.8 %; Neutrophils # 7.3 K/mcL (1.6-8.9); Platelet Count 358 K/mcL (140-400); Red Blood Count 2.85 M/mcL (4.19-5.50); Red Cell Distribution Width 14.6 % (11.5-14.5); Segmented Neutrophils % 68.7 %
[2018-09-04 05:43] LABS: Calcium 8.3 mg/dL (8.6-10.3); Potassium 3.6 mEq/L (3.5-5.1)
[2018-09-04] MEDS: Ascorbic Acid 500 MG TABLET PO SCH (06:48)
[2018-09-04] MEDS: Cholecalciferol (D-3) 1,000 UNIT TABLET PO SCH (08:32)
[2018-09-04] MEDS: Metoprolol XL (24 HR) Succ 25 MG TAB.ER.24H PO SCH (08:32)
[2018-09-04] MEDS: Magnesium Oxide 400 MG TABLET PO SCH (08:32)
[2018-09-04] MEDS: Carbidopa/Levodopa 25/100 TABLET PO SCH ×4 (08:32→21:15)
[2018-09-04] MEDS: Multivit/Ca/Min/Fe/FA 1 TAB TABLET PO SCH (08:32)
[2018-09-04] MEDS: Isosorbide MONOnitrate (24 HR) 60 MG TAB.ER.24H PO SCH (08:32)
[2018-09-04] MEDS: Fluticasone Propionate Nasal 50 MCG/SPRAY BOTTLE NS SCH ×2 (08:32→21:17)
[2018-09-04] MEDS: Insulin LISPRO 300 UNITS/3 ML VIAL SQ SCH ×5 (08:33→21:17)
[2018-09-04] MEDS: Ketoconazole 2% CRM 15 GM TUBE TP SCH ×2 (14:48→21:24)
[2018-09-04] MEDS: Gabapentin 300 MG CAPSULE PO SCH (21:16)
[2018-09-04] MEDS: Insulin DETEMIR 100 UNIT/ML X5UNITS SQ SCH (21:17)
[2018-09-05] MEDS: Ascorbic Acid 500 MG TABLET PO SCH (06:17)
[2018-09-05] MEDS: Ondansetron ODT 4 MG TAB.RAPDIS SL PRN (06:36)
[2018-09-05] MEDS: Fluticasone Propionate Nasal 50 MCG/SPRAY BOTTLE NS SCH ×2 (10:37→21:01)
[2018-09-05] MEDS: Cholecalciferol (D-3) 1,000 UNIT TABLET PO SCH (10:37)
[2018-09-05] MEDS: Multivit/Ca/Min/Fe/FA 1 TAB TABLET PO SCH (10:37)
[2018-09-05] MEDS: Magnesium Oxide 400 MG TABLET PO SCH (10:37)
[2018-09-05] MEDS: Insulin LISPRO 300 UNITS/3 ML VIAL SQ SCH ×4 (10:37→21:03)
[2018-09-05] MEDS: Carbidopa/Levodopa 25/100 TABLET PO SCH ×4 (10:37→21:02)
[2018-09-05] MEDS: Metoprolol XL (24 HR) Succ 25 MG TAB.ER.24H PO SCH (10:37)
[2018-09-05] MEDS: Isosorbide MONOnitrate (24 HR) 60 MG TAB.ER.24H PO SCH (10:37)
[2018-09-05] MEDS: Aspirin 81 MG TAB.CHEW PO SCH (10:40)
[2018-09-05] MEDS: Ketoconazole 2% CRM 15 GM TUBE TP SCH ×2 (11:28→21:05)
--- NOTE | 2018-09-05 15:17 | Internal Med Progress Note ---
Date of Encounter: 09/05/18 Time of Encounter: 15:10 - Assessment and plan (1) Coronary artery disease Current Visit: No Status: Chronic Assessment and plan: September 01. Continue aspirin, Plavix, Imdur, Toprol-XL, and Lipitor Qualifiers: Coronary Disease-Associated Artery/Lesion type: [place] artery [place] vs. transplanted heart: [place] heart Associated angina: without angina Qualified Code(s): I25.10 - Atherosclerotic heart disease of [place] coronary artery without angina pectoris (2) Tinea corporis Current Visit: Yes Status: Acute Assessment and plan: September 01. Continue ketoconazole cream (3) Weakness Current Visit: Yes Status: Acute Assessment and plan: September 01. Continue PT and OT intervention (4) Hypertension Current Visit: No Status: Chronic Assessment and plan: September 01. Blood pressure borderline low. Continue low-dose Toprol-XL. September 03. Blood pressure slightly improved. Continue low-dose Toprol-XL. Qualifiers: Hypertension type: essential hypertension Qualified Code(s): I10 - Essential (primary) hypertension (5) Diabetes Current Visit: No Status: Chronic Assessment and plan: September 01. Hemoglobin A1c was 10.7 on 08/19/2018. Levemir was reduced from 25 u nits at bedtime to 10 units at bedtime yesterday due to hypoglycemia. He now has hyperglycemia. Levemir dose will be increased to 18 units at bedtime. September 03. Presently on Levemir 10 units at bedtime. Blood sugars are satisfactory. September 05. Blood sugars above desirable range. Increase Levemir to 10 units twice a day. Continue Accu-Cheks with SSI. 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 Continue Lipitor (7) Hypothyroidism Current Visit: No Status: Chronic Assessment and plan: September 01. TSH was elevated at 168.690 on 08/25/2018. Continue Synthroid 300 g daily Qualifiers: Hypothyroidism type: unspecified Qualified Code(s): E03.9 - Hypothyroidism, unspecified (8) Hyperuricemia Current Visit: No Status: Chronic Assessment and plan: September 01. Uric acid level was 5.5 on 05/14/2018. Observe without further treatment. (9) ESRD (end stage renal disease) on dialysis Current Visit: No Status: Chronic Assessment and plan: September 01. Continue MWF hemodialysis (10) Anemia Current Visit: No Status: Chronic Assessment and plan: September 01. Hemoglobin 8.6. Anemia testing shows iron 28, transferrin saturation 10%, transferrin 195, ferritin 295, B12 769, and folate 8.7. Start ferrous sulfate with ascorbic acid in a.m. September 05. Recheck labs in a.m. Qualifiers: Anemia type: due to chronic kidney disease Chronic kidney disease stage: on chronic dialysis Qualified Code(s): N18.6 - End stage renal disease; D63.1 - Anemia in chronic kidney disease; Z99.2 - Dependence on renal dialysis (11) Hypomagnesemia Current Visit: Yes Status: Acute Assessment and plan: September 01. Magnesium level normal at 1.7 on 08/28/2018. Continue magnesium oxide. (12) Cough Current Visit: Yes Status: Acute Assessment and plan: September 03. Chest x-ray will be done today. Labs will be rechecked in a.m. September 05. No significant cough present now. Continue to observe. - Subjective Interval history: September 01. He has no new complaints and feels well. September 03. He states he had 2 episodes of vomiting this morning. He has had a cough for approximately 3 days. September 05. He has no new complaints and feels better. He inquired about discharge date. He wishes to stay until 09/15/2018 if possible. - Constitutional Vitals: Temp Pulse Resp BP Pulse Ox 98.1 F 96 18 122/74 95 09/05/18 06:37 09/05/18 06:37 09/05/18 06:37 09/05/18 06:37 09/05/18 06:37 Exam: He is resting comfortably in bed and appears in no acute distress. His affect is overall cheerful. He has no extremity edema. I reviewed his medications and lab results. Internal Medicine: Result - Labs CBC & Chem 7: 09/04/18 04:55 09/04/18 04:55 - Impressions Impressions Chest X-Ray 09/03/18 12:29 IMPRESSION: 1. Enlarged cardiomediastinal silhouette, with mild pulmonary venous congestion and trace bilateral pleural effusions. Correlation with volume status is recommended. 2. No focal consolidation, or pneumothorax. D/ / 09/03/2018 14:10:17 Abdullahi Daniel MD / nae Interpreting Provider: Abdullahi Daniel MD Consult Discharge Plan - Plan Referrals: Sangita Macias DO [Primary Care Provider] - 1 week
[2018-09-05] MEDS: Insulin DETEMIR 100 UNIT/ML X5UNITS SQ SCH (21:02)
[2018-09-05] MEDS: Gabapentin 300 MG CAPSULE PO SCH (21:02)
[2018-09-06] MEDS: Ascorbic Acid 500 MG TABLET PO SCH (06:02)
[2018-09-06 08:06] LABS: Basophils % 0.5 %; Eosinophils # 0.3 K/mcL (0.0-0.6); Eosinophils % 3.6 %; Hematocrit 25.7 % (37.5-50.1); Hemoglobin 8.1 g/dL (12.9-16.9); Immature Granulocytes % 0.7 % (0-4); Lymphocytes # 1.9 K/mcL (0.6-4.6); Mean Corpuscular HGB Conc 31.5 g/dL (31.6-35.5); Mean Corpuscular Hemoglobin 27.8 pg (28.0-33.3); Mean Corpuscular Volume 88.3 fL (83.0-100.0); Mean Platelet Volume 9.9 fL (9.4-12.4); Monocytes % 10.8 %; Neutrophils # 5.6 K/mcL (1.6-8.9); Platelet Count 406 K/mcL (140-400); Red Blood Count 2.91 M/mcL (4.19-5.50); Red Cell Distribution Width 15.2 % (11.5-14.5); Segmented Neutrophils % 63.4 %
[2018-09-06] MEDS: Isosorbide MONOnitrate (24 HR) 60 MG TAB.ER.24H PO SCH (08:40)
[2018-09-06] MEDS: Metoprolol XL (24 HR) Succ 25 MG TAB.ER.24H PO SCH (08:41)
[2018-09-06] MEDS: Magnesium Oxide 400 MG TABLET PO SCH (08:44)
[2018-09-06] MEDS: Cholecalciferol (D-3) 1,000 UNIT TABLET PO SCH (08:44)
[2018-09-06] MEDS: Carbidopa/Levodopa 25/100 TABLET PO SCH ×4 (08:44→20:27)
[2018-09-06] MEDS: Multivit/Ca/Min/Fe/FA 1 TAB TABLET PO SCH (08:44)
[2018-09-06] MEDS: Insulin LISPRO 300 UNITS/3 ML VIAL SQ SCH ×4 (08:45→20:28)
[2018-09-06] MEDS: Insulin DETEMIR 100 UNIT/ML X5UNITS SQ SCH ×2 (08:45→20:28)
[2018-09-06] MEDS: Ketoconazole 2% CRM 15 GM TUBE TP SCH ×2 (08:46→20:29)
[2018-09-06] MEDS: Fluticasone Propionate Nasal 50 MCG/SPRAY BOTTLE NS SCH ×2 (08:49→20:27)
[2018-09-06 09:09] LABS: Calcium 8.6 mg/dL (8.6-10.3); Potassium 4.3 mEq/L (3.5-5.1)
[2018-09-06] MEDS: Gabapentin 300 MG CAPSULE PO SCH (20:28)
[2018-09-07] MEDS: Ascorbic Acid 500 MG TABLET PO SCH (05:41)
[2018-09-07] MEDS: Insulin LISPRO 300 UNITS/3 ML VIAL SQ SCH ×4 (07:38→20:10)
[2018-09-07] MEDS: Ondansetron ODT 4 MG TAB.RAPDIS SL PRN (08:16)
[2018-09-07] MEDS: Aspirin 81 MG TAB.CHEW PO SCH (08:19)
[2018-09-07] MEDS: Multivit/Ca/Min/Fe/FA 1 TAB TABLET PO SCH (08:19)
[2018-09-07] MEDS: Magnesium Oxide 400 MG TABLET PO SCH (08:20)
[2018-09-07] MEDS: Isosorbide MONOnitrate (24 HR) 60 MG TAB.ER.24H PO SCH (08:20)
[2018-09-07] MEDS: Ketoconazole 2% CRM 15 GM TUBE TP SCH ×2 (08:20→20:11)
[2018-09-07] MEDS: Metoprolol XL (24 HR) Succ 25 MG TAB.ER.24H PO SCH (08:20)
[2018-09-07] MEDS: Cholecalciferol (D-3) 1,000 UNIT TABLET PO SCH (08:20)
[2018-09-07] MEDS: Fluticasone Propionate Nasal 50 MCG/SPRAY BOTTLE NS SCH ×2 (08:28→20:06)
[2018-09-07] MEDS: Carbidopa/Levodopa 25/100 TABLET PO SCH ×4 (08:28→20:22)
[2018-09-07] MEDS: Insulin DETEMIR 100 UNIT/ML X5UNITS SQ SCH ×2 (08:28→20:10)
--- NOTE | 2018-09-07 16:13 | Internal Med Progress Note ---
Date of Encounter: 09/07/18 Time of Encounter: 16:05 - Assessment and plan (1) Coronary artery disease Current Visit: No Status: Chronic Assessment and plan: September 01. Continue aspirin, Plavix, Imdur, Toprol-XL, and Lipitor Qualifiers: Coronary Disease-Associated Artery/Lesion type: [place] artery [place] vs. transplanted heart: [place] heart Associated angina: without angina Qualified Code(s): I25.10 - Atherosclerotic heart disease of [place] coronary artery without angina pectoris (2) Tinea corporis Current Visit: Yes Status: Acute Assessment and plan: September 01. Continue ketoconazole cream (3) Weakness Current Visit: Yes Status: Acute Assessment and plan: September 01. Continue PT and OT intervention September 07. Continue PT/OT. Anticipate discharge home early/mid next week. (4) Hypertension Current Visit: No Status: Chronic Assessment and plan: September 01. Blood pressure borderline low. Continue low-dose Toprol-XL. September 03. Blood pressure slightly improved. Continue low-dose Toprol-XL. Qualifiers: Hypertension type: essential hypertension Qualified Code(s): I10 - Ess ential (primary) hypertension (5) Diabetes Current Visit: No Status: Chronic Assessment and plan: September 01. Hemoglobin A1c was 10.7 on 08/19/2018. Levemir was reduced from 25 units at bedtime to 10 units at bedtime yesterday due to hypoglycemia. He now has hyperglycemia. Levemir dose will be increased to 18 units at bedtime. September 03. Presently on Levemir 10 units at bedtime. Blood sugars are sat isfactory. September 05. Blood sugars above desirable range. Increase Levemir to 10 units twice a day. Continue Accu-Cheks with SSI. September 07. Blood sugar satisfactory. 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 Continue Lipitor (7) Hypothyroidism Current Visit: No Status: Chronic Assessment and plan: September 01. TSH was elevated at 168.690 on 08/25/2018. Continue Synthroid 300 g daily Qualifiers: Hypothyroidism type: unspecified Qualified Code(s): E03.9 - Hypothyroidism, unspecified (8) Hyperuricemia Current Visit: No Status: Chronic Assessment and plan: September 01. Uric acid level was 5.5 on 05/14/2018. Observe without further treatment. (9) ESRD (end stage renal disease) on dialysis Current Visit: No Status: Chronic Assessment and plan: September 01. Continue MWF hemodialysis (10) Anemia Current Visit: No Status: Chronic Assessment and plan: September 01. Hemoglobin 8.6. Anemia testing shows iron 28, transferrin saturation 10%, transferrin 195, ferritin 295, B12 769, and folate 8.7. Start ferrous sulfate with ascorbic acid in a.m. September 05. Recheck labs in a.m. September 07. Hemoglobin slightly improved to 8.1. Continue ferrous sulfate with ascorbic acid. Qualifiers: Anemia type: due to chronic kidney disease Chronic kidney disease stage: on chronic dialysis Qualified Code(s): N18.6 - End stage renal disease; D63.1 - Anemia in chronic kidney disease; Z99.2 - Dependence on renal dialysis (11) Hypomagnesemia Current Visit: Yes Status: Acute Assessment and plan: September 01. Magnesium level normal at 1.7 on 08/28/2018. Continue magnesium oxide. (12) Cough Current Visit: Yes Status: Acute Assessment and plan: September 03. Chest x-ray will be done today. Labs will be rechecked in a.m. September 05. No significant cough present now. Continue to observe. - Subjective Interval history: September 01. He has no new complaints and feels well. September 03. He states he had 2 episodes of vomiting this morning. He has had a cough for approximately 3 days. September 05. He has no new complaints and feels better. He inquired about discharge date. He wishes to stay until 09/15/2018 if possible. September 07. He has no new complaints. - Constitutional Vitals: Temp Pulse Resp BP Pulse Ox 98.3 F 91 16 134/61 93 09/07/18 06:32 09/07/18 06:32 09/07/18 06:32 09/07/18 06:32 09/07/18 06:32 Exam: He sitting in a chair at bedside resting comfortably. His affect is bright and cheerful. I reviewed his medications and lab results. Internal Medicine: Result - Labs CBC & Chem 7: 09/06/18 07:34 09/06/18 07:34 Consult Discharge Plan - Plan Referrals: Sangita Macias DO [Primary Care Provider] - 1 week
[2018-09-07] MEDS: Gabapentin 300 MG CAPSULE PO SCH (20:05)
[2018-09-08] MEDS: Ascorbic Acid 500 MG TABLET PO SCH (04:17)
[2018-09-08] MEDS: Insulin LISPRO 300 UNITS/3 ML VIAL SQ SCH ×4 (07:30→20:11)
[2018-09-08] MEDS: Multivit/Ca/Min/Fe/FA 1 TAB TABLET PO SCH (08:06)
[2018-09-08] MEDS: Cholecalciferol (D-3) 1,000 UNIT TABLET PO SCH (08:06)
[2018-09-08] MEDS: Carbidopa/Levodopa 25/100 TABLET PO SCH ×4 (08:06→20:23)
[2018-09-08] MEDS: Ketoconazole 2% CRM 15 GM TUBE TP SCH ×2 (08:06→20:13)
[2018-09-08] MEDS: Magnesium Oxide 400 MG TABLET PO SCH (08:07)
[2018-09-08] MEDS: Fluticasone Propionate Nasal 50 MCG/SPRAY BOTTLE NS SCH ×2 (08:07→20:10)
[2018-09-08] MEDS: Isosorbide MONOnitrate (24 HR) 60 MG TAB.ER.24H PO SCH (08:07)
[2018-09-08] MEDS: Metoprolol XL (24 HR) Succ 25 MG TAB.ER.24H PO SCH (08:08)
[2018-09-08] MEDS: Insulin DETEMIR 100 UNIT/ML X5UNITS SQ SCH ×2 (08:37→20:11)
[2018-09-08] MEDS: Acetaminophen 325 MG TABLET PO PRN (10:32)
[2018-09-08] MEDS: Gabapentin 300 MG CAPSULE PO SCH (20:10)
[2018-09-09] MEDS: Ascorbic Acid 500 MG TABLET PO SCH (06:37)
[2018-09-09] MEDS: Insulin LISPRO 300 UNITS/3 ML VIAL SQ SCH ×4 (07:31→21:03)
[2018-09-09] MEDS: Metoprolol XL (24 HR) Succ 25 MG TAB.ER.24H PO SCH (09:25)
[2018-09-09] MEDS: Insulin DETEMIR 100 UNIT/ML X5UNITS SQ SCH ×2 (09:25→21:02)
[2018-09-09] MEDS: Ketoconazole 2% CRM 15 GM TUBE TP SCH ×2 (09:25→21:03)
[2018-09-09] MEDS: Aspirin 81 MG TAB.CHEW PO SCH (09:25)
[2018-09-09] MEDS: Cholecalciferol (D-3) 1,000 UNIT TABLET PO SCH (09:25)
[2018-09-09] MEDS: Isosorbide MONOnitrate (24 HR) 60 MG TAB.ER.24H PO SCH (09:25)
[2018-09-09] MEDS: Magnesium Oxide 400 MG TABLET PO SCH (09:25)
[2018-09-09] MEDS: Multivit/Ca/Min/Fe/FA 1 TAB TABLET PO SCH (09:25)
[2018-09-09] MEDS: Fluticasone Propionate Nasal 50 MCG/SPRAY BOTTLE NS SCH ×2 (09:28→21:02)
[2018-09-09] MEDS: Carbidopa/Levodopa 25/100 TABLET PO SCH ×4 (09:28→21:02)
[2018-09-09] MEDS: Gabapentin 300 MG CAPSULE PO SCH (21:02)
[2018-09-09] MEDS: Acetaminophen 325 MG TABLET PO PRN (22:22)
[2018-09-10] MEDS: Ascorbic Acid 500 MG TABLET PO SCH (06:32)
[2018-09-10 07:20] VITALS: BP 170/83
[2018-09-10] MEDS: Insulin LISPRO 300 UNITS/3 ML VIAL SQ SCH ×2 (08:27→12:06)
[2018-09-10] MEDS: Insulin DETEMIR 100 UNIT/ML X5UNITS SQ SCH (10:24)
[2018-09-10] MEDS: Fluticasone Propionate Nasal 50 MCG/SPRAY BOTTLE NS SCH (10:24)
[2018-09-10] MEDS: Metoprolol XL (24 HR) Succ 25 MG TAB.ER.24H PO SCH (10:25)
[2018-09-10] MEDS: Multivit/Ca/Min/Fe/FA 1 TAB TABLET PO SCH (10:25)
[2018-09-10] MEDS: Carbidopa/Levodopa 25/100 TABLET PO SCH ×2 (10:25→12:06)
[2018-09-10] MEDS: Isosorbide MONOnitrate (24 HR) 60 MG TAB.ER.24H PO SCH (10:25)
[2018-09-10] MEDS: Cholecalciferol (D-3) 1,000 UNIT TABLET PO SCH (10:25)
[2018-09-10] MEDS: Magnesium Oxide 400 MG TABLET PO SCH (10:25)
[2018-09-10] MEDS: Ketoconazole 2% CRM 15 GM TUBE TP SCH (10:37)
[2018-09-10] MEDS: Ondansetron ODT 4 MG TAB.RAPDIS SL PRN (11:11)
--- NOTE | 2018-09-10 11:26 | Discharge Summary ---
Date of Encounter: 09/10/18 Time of Encounter: 11:10 - Discharge Diagnosis (1) Coronary artery disease Priority: Primary Status: Chronic Qualifiers: Coronary Disease-Associated Artery/Lesion type: [place] artery [place] vs. transplanted heart: [place] heart Associated angina: without angina Qualified Code(s): I25.10 - Atherosclerotic heart disease of [place] coronary artery without angina pectoris (2) Tinea corporis Priority: Secondary Status: Acute (3) Weakness Priority: Secondary Status: Acute (4) Hypertension Priority: Secondary Status: Chronic Qualifiers: Hypertension type: essential hypertension Qualified Code(s): I10 - Essential (primary) hypertension (5) Diabetes Priority: Secondary Status: Chronic Qualifiers: Diabetes mellitus type: type 2 Diabetes mellitus group home insulin use: with group home use Diabetes mellitus complication status: with kidney complications Diabetes mellitus complication detail: with chronic kidney disease Chronic kidney disease stage: stage 5, not on chronic dialysis Qualified Code(s): E11.22 - Type 2 diabetes mellitus with diabetic chronic kidney disease; N18.5 - Chronic kidney disease, stage 5; Z79.4 - nursing home (current) use of insulin (6) Dyslipidemia Priority: Secondary Status: Chronic (7) Hypothyroidism Priority: Secondary Status: Chronic Qualifiers: Hypothyroidism type: unspecified Qualified Code(s): E03.9 - Hypothyroidism, unspecified (8) Hyperuricemia Priority: Secondary Status: Chronic (9) ESRD (end stage renal disease) on dialysis Priority: Secondary Status: Chronic (10) Anemia Priority: Secondary Status: Chronic Qualifiers: Anemia type: due to chronic kidney disease Chronic kidney disease stage: on chronic dialysis Qualified Code(s): N18.6 - End stage renal disease; D63.1 - A nemia in chronic kidney disease; Z99.2 - Dependence on renal dialysis (11) Hypomagnesemia Priority: Secondary Status: Acute (12) Cough Priority: Secondary Status: Acute Hospital course: Mr. Hdz is a 58 year old male who was hospitalized at [facility] August 18-August 30 after presenting with DKA and non-STEMI. He developed respiratory insufficiency requiring intubation. He had ongoing hemodialysis for CKD5. He was stabilized and discharged to [facility] swing bed for rehabilitation therapy prior to returning home. Initial orders were written by the discharging physicians at [facility]. I saw him on August 31 and performed a swing bed history and physical. He had physical therapy and occupational therapy evaluations with ongoing intervention. He made satisfactory progress. Synthroid dose was increased to 300 g daily. I suspect he is noncompliant at home and the dose can likely be reduced if he becomes more compliant. He continued MWF hemodialysis during his swing bed stay. Anemia testing 09/01/2018 showed iron 28, transferrin saturation 10%, transferrin 195, ferritin 295, B12 769, and folate 8.7. He was started on ferrous sulfate with ascorbic acid and these will be continued at discharge. On September 10 arrangements were complete for him to be discharged home. He will follow with his PCP Dr. Sangita Macias within 1 week. He will follow with his chief warden as scheduled and continue MWF hemodialysis. - Time Spent with Patient Total time spent providing and/or coordinating discharge services: - Discharge Medications Prescriptions: New Ferrous Sulfate 325 mg PO 0630 #30 tablet Levothyroxine [Synthroid] 300 mcg PO 0630 #60 tablet Ascorbic Acid [Vitamin C] 500 mg PO 0630 #30 tablet Continued Montelukast [Singulair] 10 mg PO DAILY Cholecalciferol (D-3) [Vitamin D] 2,000 unit PO DAILY Nitroglycerin [Nitrostat] 0.4 mg SL Q5MIN PRN MDD [id number] CALL 911 PRN Reason: Chest Pain hydrOXYzine HCl [Hydroxyzine HCl] 50 mg PO HS PRN PRN Reason: Sleep Omeprazole [PriLOSEC] 20 mg PO DAILY PRN PRN Reason: GERD Clopidogrel [Plavix] 75 mg PO DAILY #30 tablet Polyethylene Glycol 3350 [MiraLAX Powder Bulk 17.9 Oz] 17 gm PO DAILY PRN PRN Reason: Constipation Insulin LISPRO [HumaLOG] 8 unit SQ TIDWM Insulin DETEMIR [Levemir] 25 unit SQ HS Lidocaine/Prilocaine [Emla] 1 appl TP AD Folic Acid/Vit B Complex and C [Dialyvite Tablet] 1 tab PO DAILY Metoprolol Succinate [Toprol Xl] 25 mg PO DAILY Magnesium Oxide [Mag-Ox] 400 mg PO DAILY Promethazine [Phenergan] 25 mg PO Q6H PRN PRN Reason: NAUSEA/VOMTING Ipratropium [place] 2 spray NS BID Carvedilol [Coreg] 3.125 mg PO BIDWM tablet Isosorbide MONOnitrate (24 HR) [Imdur] 60 mg PO DAILY tab.er.24h Atorvastatin [Lipitor] 80 mg PO HS tablet Gabapentin 600 mg PO HS #3 tablet Sertraline [Zoloft] 50 mg PO HS Fluticasone Propionate Nasal [Flonase] 1 spray NS BID Carbidopa/Levodopa 25/100 [Sinemet 25/100] 1 tab PO 0800,1200,1600,1999 Ondansetron ODT [Zofran ODT] 4 mg SL Q4HR PRN #15 tab.rapdis PRN Reason: Vomiting Docusate [Colace] 100 mg PO BID PRN PRN Reason: Constipation Aspirin 81 mg PO Q48H #0 Discontinued Levothyroxine Sodium [Synthroid] 200 mcg PO DAILY Home Medications: Carbidopa/Levodopa 25/100 [Sinemet 25/100] 1 tab PO 0800,1200,1600,2000 09/20/15 [History] Fluticasone Propionate Nasal [Flonase] 1 spray NS BID 09/20/15 [History] Sertraline [Zoloft] 50 mg PO HS 09/20/15 [History] Montelukast [Singulair] 10 mg PO DAILY 02/02/17 [History] Cholecalciferol (D-3) [Vitamin D] 2,000 unit PO DAILY 11/24/17 [History] Nitroglycerin [Nitrostat] 0.4 mg SL Q5MIN PRN MDD [id number] CALL 911 11/24/17 [History] Ondansetron ODT [Zofran ODT] 4 mg SL Q4HR PRN #15 tab.rapdis 01/09/18 [Rx] hydrOXYzine HCl [Hydroxyzine HCl] 50 mg PO HS PRN 04/25/18 [History] Docusate [Colace] 100 mg PO BID PRN 05/05/18 [History] Aspirin 81 mg PO Q48H #0 05/31/18 [Rx] Omeprazole [PriLOSEC] 20 mg PO DAILY PRN 06/06/18 [History] Clopidogrel [Plavix] 75 mg PO DAILY #30 tablet 06/08/18 [Rx] Folic Acid/Vit B Complex and C [Dialyvite Tablet] 1 tab PO DAILY 08/18/18 [History] Insulin DETEMIR [Levemir] 25 unit SQ HS 08/18/18 [History] Insulin LISPRO [HumaLOG] 8 unit SQ TIDWM 08/18/18 [History] Ipratropium [place] 2 spray NS BID 08/18/18 [History] Lidocaine/Prilocaine [Emla] 1 appl TP AD 08/18/18 [History] Magnesium Oxide [Mag-Ox] 400 mg PO DAILY 08/18/18 [History] Metoprolol Succinate [Toprol Xl] 25 mg PO DAILY 08/18/18 [History] Polyethylene Glycol 3350 [MiraLAX Powder Bulk 17.9 Oz] 17 gm PO DAILY PRN 08/18/18 [History] Promethazine [Phenergan] 25 mg PO Q6H PRN 08/18/18 [History] Atorvastatin [Lipitor] 80 mg PO HS tablet 08/30/18 [Rx] Carvedilol [Coreg] 3.125 mg PO BIDWM tablet 08/30/18 [Rx] Gabapentin 600 mg PO HS #3 tablet 08/30/18 [Rx] Isosorbide MONOnitrate (24 HR) [Imdur] 60 mg PO DAILY tab.er.24h 08/30/18 [Rx] Ascorbic Acid [Vitamin C] 500 mg PO 0630 #30 tablet 09/10/18 [Rx] Ferrous Sulfate 325 mg PO 0630 #30 tablet 09/10/18 [Rx] Levothyroxine [Synthroid] 300 mcg PO 0630 #60 tablet 09/10/18 [Rx] Allergies/Adverse Reactions: Allergy/AdvReac Type Severity Reaction Status Date / Time codeine Allergy Rash Verified 06/13/18 14:40 oxycodone [From Percocet] Allergy Rash Verified 08/18/18 14:14 Date of admission: 08/30/18 17:46 Primary care physician: Sangita Macias, DO Consults: 08/30/18 17:14 Consult to Occupational Therapy [CONS] Routine Comment: Evaluate, develop and implement POC Reason for Consult: Evaluate, develop and implement POC Does patient have active BEDREST order?: No Is patient medically & hemodynamically stable?: Yes Patient assessed for mobility or mobilized this visit?: No Consult to Physical Therapy [CONS] Routine Comment: Evaluate, develop and implement POC Reason for Consult: Evaluate, develop and implement POC Does patient have active BEDREST order?: No Is patient medically & hemodynamically stable?: Yes Patient assessed for mobility or mobilized this visit?: No 08/30/18 17:18 Consult to Speech Therapy [CONS] Routine Comment: Evaluate, develop and implement POC Reason for Consult: Evaluate, develop and implement POC Call Completed: No - Constitutional Vitals: Temp Pulse Resp BP Pulse Ox 97.8 F 85 18 170/83 95 09/10/18 07:17 09/10/18 07:17 09/10/18 07:17 09/10/18 07:17 09/10/18 07:17 - Patient Status Disposition: Home Health Service - Discharge Instructions Follow Up With: Sangita Macias DO [Primary Care Provider] - 1 week - Diet and Activity Activity: resume usual activities as tolerated Diet: diabetic diet
--- NOTE | 2018-09-10 11:32 | Physician Discharge Referral ---
Home Health/Hosp Referral Info Transfer to: Home Health Attending Provider: Saravanan Provider in Charge Post Discharge: PCP (Sangita Macias D.O.) - Diagnosis (1) Coronary artery disease Priority: Primary Status: Chronic (2) Tinea corporis Priority: Secondary Status: Acute (3) Weakness Priority: Secondary Status: Acute (4) Hypertension Priority: Secondary Status: Chronic (5) Diabetes Priority: Secondary Status: Chronic (6) Dyslipidemia Priority: Secondary Status: Chronic (7) Hypothyroidism Priority: Secondary Status: Chronic (8) Hyperuricemia Priority: Secondary Status: Chronic (9) ESRD (end stage renal disease) on dialysis Priority: Secondary Status: Chronic (10) Anemia Priority: Secondary Status: Chronic (11) Hypomagnesemia Priority: Secondary Status: Acute (12) Cough Priority: Secondary Status: Acute - Respiratory Orders Smoking Cessation: Smoking cessation has been advised. For more information, call the [place] Tobacco Quit Line at 3-074-OGXC-NOW. - Diet/Nutrition Diet/Nutrition Orders: No Concentrated Sweets - Activity Activity Orders: Walker - Services Needed Following services are medically necessary services: Nursing, Home Health Aide, Physical Therapy, Occupational Therapy - Transfer Medications Prescriptions: Ferrous Sulfate 325 mg PO 0630 #30 tablet Levothyroxine [Synthroid] 300 mcg PO 0630 #60 tablet Ascorbic Acid [Vitamin C] 500 mg PO 0630 #30 tablet Home Medications: Carbidopa/Levodopa 25/100 [Sinemet 25/100] 1 tab PO 0800,1200,1600,2000 09/20/15 [History] Fluticasone Propionate Nasal [Flonase] 1 spray NS BID 09/20/15 [History] Sertraline [Zoloft] 50 mg PO HS 09/20/15 [History] Montelukast [Singulair] 10 mg PO DAILY 02/02/17 [History] Cholecalciferol (D-3) [Vitamin D] 2,000 unit PO DAILY 11/24/17 [History] Nitroglycerin [Nitrostat] 0.4 mg SL Q5MIN PRN MDD [id number] CALL 911 11/24/17 [History] Ondansetron ODT [Zofran ODT] 4 mg SL Q4HR PRN #15 tab.rapdis 01/09/18 [Rx] hydrOXYzine HCl [Hydroxyzine HCl] 50 mg PO HS PRN 04/25/18 [History] Docusate [Colace] 100 mg PO BID PRN 05/05/18 [History] Aspirin 81 mg PO Q48H #0 05/31/18 [Rx] Omeprazole [PriLOSEC] 20 mg PO DAILY PRN 06/06/18 [History] Clopidogrel [Plavix] 75 mg PO DAILY #30 tablet 06/08/18 [Rx] Folic Acid/Vit B Complex and C [Dialyvite Tablet] 1 tab PO DAILY 08/18/18 [History] Insulin DETEMIR [Levemir] 25 unit SQ HS 08/18/18 [History] Insulin LISPRO [HumaLOG] 8 unit SQ TIDWM 08/18/18 [History] Ipratropium [place] 2 spray NS BID 08/18/18 [History] Lidocaine/Prilocaine [Emla] 1 appl TP AD 08/18/18 [History] Magnesium Oxide [Mag-Ox] 400 mg PO DAILY 08/18/18 [History] Metoprolol Succinate [Toprol Xl] 25 mg PO DAILY 08/18/18 [History] Polyethylene Glycol 3350 [MiraLAX Powder Bulk 17.9 Oz] 17 gm PO DAILY PRN 08/18/18 [History] Promethazine [Phenergan] 25 mg PO Q6H PRN 08/18/18 [History] Atorvastatin [Lipitor] 80 mg PO HS tablet 08/30/18 [Rx] Carvedilol [Coreg] 3.125 mg PO BIDWM tablet 08/30/18 [Rx] Gabapentin 600 mg PO HS #3 tablet 08/30/18 [Rx] Isosorbide MONOnitrate (24 HR) [Imdur] 60 mg PO DAILY tab.er.24h 08/30/18 [Rx] Ascorbic Acid [Vitamin C] 500 mg PO 0630 #30 tablet 09/10/18 [Rx] Ferrous Sulfate 325 mg PO 0630 #30 tablet 09/10/18 [Rx] Levothyroxine [Synthroid] 300 mcg PO 0630 #60 tablet 09/10/18 [Rx] Allergies/Adverse Reactions: Allergy/AdvReac Type Severity Reaction Status Date / Time codeine Allergy Rash Verified 06/13/18 14:40 oxycodone [From Percocet] Allergy Rash Verified 08/18/18 14:14 Certification: Further, I certify that my clinical findings support that this patient is homebound (i.e. absences from home require considerable and taxing effort and are for medical reasons or voodoo services or infrequently or short duration when for other reasons) because: Homebound Reason: Patient requires assistance of a person or device to safely leave home (Walker ambulation, medication noncompliance) Attestation: My signature below is to certify that this patient is under my care and that I, or nurse practitioner, or a physician's habilitation assistant working with me, has a [id number] encounter with this patient.
== END 2018-09-10 12:46 | disposition home health service (06) | DRG 945 ==
LOC: INPPIK 17:46
PROVIDERS: ADMIT Internal Medicine; ATTEND Internal Medicine

== ENCOUNTER 2018-11-27 12:18 | Inpatient (IN) ==
[2018-11-27] MEDS ORDERED: Nitroglycerin 0.4 MG TAB.SUBL SL PRN (15:50)
[2018-11-27] MEDS: hydrALAZINE 25 MG TABLET PO SCH (16:39)
[2018-11-27] MEDS: Sucralfate 1 GM TABLET PO SCH ×2 (16:39→22:02)
[2018-11-27] MEDS: Carbidopa/Levodopa 25/100 TABLET PO SCH ×2 (16:40→22:02)
[2018-11-27] MEDS ORDERED: Dextrose Gel 15 GM/37.5 ML TUBE PO PRN ×2 (17:44)
[2018-11-27] MEDS ORDERED: *HR* Dextrose 50 % in Water (Syg) 50 ML SYRINGE IVP PRN (17:44)
[2018-11-27] MEDS ORDERED: D5% in Water 1,000 ML IVC PRN (17:44)
[2018-11-27] MEDS: Ipratropium Neb 0.5 MG NEBULIZER AER SCH (21:55)
[2018-11-27] MEDS: Gabapentin 300 MG CAPSULE PO SCH (22:02)
[2018-11-27] MEDS: Fluticasone Propionate Nasal 50 MCG/SPRAY BOTTLE NS SCH (22:03)
[2018-11-27] MEDS: Insulin LISPRO 300 UNITS/3 ML VIAL SQ SCH (22:03)
[2018-11-28] MEDS: hydrALAZINE 25 MG TABLET PO SCH ×3 (00:42→16:46)
[2018-11-28] MEDS: Aspirin Enteric Coated 81 MG Tablet PO SCH (08:13)
[2018-11-28] MEDS: Vitamin B Complex/Vit C/Vit E 1 EACH TABLET PO SCH (08:13)
[2018-11-28] MEDS: Cholecalciferol (D-3) 1,000 UNIT (25MCG) TABLET PO SCH (08:13)
[2018-11-28] MEDS: Isosorbide MONOnitrate (24 HR) 60 MG TAB.ER.24H PO SCH (08:13)
[2018-11-28] MEDS: Sucralfate 1 GM TABLET PO SCH ×4 (08:14→21:21)
[2018-11-28] MEDS: Carbidopa/Levodopa 25/100 TABLET PO SCH ×4 (08:14→21:21)
[2018-11-28] MEDS: amLODIPine 5 MG TABLET PO SCH (08:14)
[2018-11-28] MEDS: Metoprolol XL (24 HR) Succ 50 MG TAB.ER.24H PO SCH (08:14)
[2018-11-28] MEDS: Magnesium Oxide 400 MG TABLET PO SCH (08:14)
[2018-11-28] MEDS: Insulin LISPRO 300 UNITS/3 ML VIAL SQ SCH ×4 (08:21→21:21)
[2018-11-28] MEDS ORDERED: Insulin DETEMIR 100 UNIT/ML X5UNITS SQ SCH (09:00)
[2018-11-28] MEDS: Ipratropium Neb 0.5 MG NEBULIZER AER SCH ×2 (10:39→20:42)
--- NOTE | 2018-11-28 11:50 | Internal Med History&Physical ---
Date of Encounter: 11/28/18 Time of Encounter: 11:25 Assessment and Plan (1) Gastroenteritis Current visit: No Status: Acute Nausea/vomiting and diarrhea presently resolved. Continue Marinol and Prilosec. (2) Hypertension Current visit: No Status: Chronic Continue hydralazine, amlodipine, and Toprol. Qualifiers: Hypertension type: essential hypertension Qualified Code(s): I10 - Essential (primary) hypertension (3) Diabetes Current visit: No Status: Chronic Hemoglobin A1c was 9.7% on 09/14/2018. Continue basal insulin and Accu-Cheks with SSI. Qualifiers: Diabetes mellitus type: type 2 Diabetes mellitus terminal makeup operator insulin use: with custodial use Diabetes mellitus complication status: with kidney complications Diabetes mellitus complication detail: with chronic kidney disease Chronic kidney disease stage: stage 4 (severe) Qualified Code(s): E11.22 - Type 2 diabetes mellitus with diabetic chronic kidney disease; N18.4 - Chronic kidney disease, stage 4 (severe); Z79.4 - penitentiary (current) use of insulin (4) Hypothyroidism Current visit: No Status: Chronic TSH was 105.440 on 11/24/2018. He has been noncompliant with prescribed Synthroid. Continue present dose of 300 micrograms daily. Qualifiers: Hypothyroidism type: unspecified Qualified Code(s): E03.9 - Hypothyroidism, unspecified (5) Anemia Current visit: No Status: Chronic Anemia testing 09/01/2018 showed no factor deficiency. Continue to monitor CBC. Qualifiers: Anemia type: due to chronic kidney disease Chronic kidney disease stage: on chronic dialysis Qualified Code(s): N18.6 - End stage renal disease; D63.1 - Anemia in chronic kidney disease; Z99.2 - Dependence on renal dialysis (6) DVT prophylaxis Current visit: No Status: Acute Subcutaneous heparin will be ordered. (7) CKD (chronic kidney disease) stage 4, GFR 15-29 ml/min Current visit: No Status: Chronic Monitor renal indices. Internal Medicine - H&P: HPI Chief complaint: Vomiting and diarrhea Admitted From: Hospital to Hospital Transfer Plans for Post Hospital Care: Home History of present illness: Mr. Hdz is a 58 year old male who was discharged to [facility] swing bed following hospitalization at [facility] November 21-November 27 for significant vomiting and diarrhea onset 3 days prior to admission. [facility] discharge summary reports EGD November 23 showed chronic gastritis. Medications were adjusted and he will follow up with GI as outpatient. He had PT/OT evaluation and it was recommended he continue with therapy in swing bed. Past Med Surg Social Fam HX - Past Medical History Medical history: coronary artery disease, diabetes, GERD, hyperlipidemia, hypertension, myocardial infarction, renal disease, thyroid disease, other Additional medical history: parkinsons Psychiatric history: depression - Past Surgical History Surgical History: angioplasty/stent, cholecystectomy, other Additional surgical history: Left Heart Cath 3 stents, Left Upper Extremity AV Shunt, right chest dialysis port - Social History Smoking Status: Never smoker Smokeless Tobacco Status: No Alcohol use: none Drug use: none - Family History Mother Adopted: No Living Status: Still Living Hx Family Cardiac Disorders: Yes (dad and brother massive stroke) Hx Family Respiratory Disorders: No Hx Family Cancer: Yes Hx Family GI Disorders: No Hx Family Endocrine Disorder: No Hx Family Neuromuscular Disorders: No Hx Family Neurologic Disorders: No Hx Family HEENT Disorders: No Hx Family Autoimmune Disorders: No Father Living Status: Hx Family Cardiac Disorders: Yes Brother Living Status: Hx Family Cardiac Disorders: Yes Hx Family Neurologic Disorders: Yes (stroke) Internal Medicine - H&P: Meds Carbidopa/Levodopa 25/100 [Sinemet 25/100] 1 tab PO QID 09/20/15 [History] Fluticasone Propionate Nasal [Flonase] 1 spray NS HS 09/20/15 [History] Sertraline [Zoloft] 100 mg PO DAILY 09/20/15 [History] Montelukast [Singulair] 10 mg PO DAILY 02/02/17 [History] Cholecalciferol (D-3) [Vitamin D] 2,000 unit PO DAILY 11/24/17 [History] Nitroglycerin [Nitrostat] 0.4 mg SL Q5M PRN 11/24/17 [History] Omeprazole [PriLOSEC] 20 mg PO DAILY PRN 06/06/18 [History] Clopidogrel [Plavix] 75 mg PO DAILY #30 tablet 06/08/18 [Rx] Folic Acid/Vit B Complex and C [Dialyvite Tablet] 1 tab PO DAILY 08/18/18 [History] Lidocaine/Prilocaine [Emla] 1 appl TP AD 08/18/18 [History] Magnesium Oxide [Mag-Ox] 400 mg PO DAILY 08/18/18 [History] Polyethylene Glycol 3350 [MiraLAX Powder Bulk 17.9 Oz] 17 gm PO DAILY PRN 08/18/18 [History] Rosuvastatin [Crestor] 40 mg PO DAILY 09/14/18 [History] Aspirin [Adult Aspirin Regimen] 81 mg PO DAILY 09/22/18 [History] Ferrous Sulfate 325 mg PO DAILY 11/23/18 [History] Insulin Degludec [Tresiba Flextouch U-100] 25 unit SQ DAILY 11/23/18 [History] Insulin LISPRO [Humalog Kwikpen U-100] 0 unit SQ TIDWM 11/23/18 [History] Ipratropium [place] 2 spray NS BID 11/23/18 [History] Isosorbide MONOnitrate [Isosorbide Mononitrate ER] 60 mg PO DAILY 11/23/18 [History] Levothyroxine Sodium [Synthroid] 300 mcg PO DAILY 11/23/18 [History] Metoprolol Succinate [Toprol Xl] 50 mg PO DAILY 11/23/18 [History] Promethazine [Phenergan] 25 mg PO Q6HR PRN 11/23/18 [History] Dronabinol [Marinol] 2.5 mg PO BIDLS 15 Days #30 capsule 11/27/18 [Rx] Gabapentin [Neurontin] 300 mg PO HS #30 capsule 11/27/18 [Rx] Sucralfate [Carafate] 1 gm PO QIDAC #120 tablet 11/27/18 [Rx] amLODIPine [Norvasc] 5 mg PO DAILY tablet 11/27/18 [Rx] hydrALAZINE [HydrALAZINE] 50 mg PO Q8HR #0 tablet 11/27/18 [Rx] Allergy/AdvReac Type Severity Reaction Status Date / Time codeine Allergy Rash Verified 11/23/18 11:35 oxycodone [From Percocet] Allergy Rash Verified 11/23/18 11:35 All Systems PM: A 10-system review of systems was performed and is negative for pertinent findings except as documented above in the HPI. Review of systems: Review of systems from his August 2018 [facility] hospitalization were reviewed and revised as below. Gen.: His weight has decreased from 126.006 kg November 2013 to present weight of 107.048 kg. Cardiovascular: He has history of hypertension and known ASHD status post LA 1995 and PTCA with 2 stents in 2012 at [facility]. [facility] 06/13/2018 showed LVEF 40%, LMCA angiographically free of disease, 35% stenosis in proximal LAD, 80% stenosis in mid LAD, 90% stenosis in ostial first diagonal, 25% stenosis in ostial second diagonal, 25% stenosis in proximal circumflex, 25% stenosis in second marginal, 15% stenosis in proximal ramus, and 100% stenosis in distal RCA with [id number] collaterals. The proximal RCA and mid RCA had patent stents from previous procedure. Echocardiogram 09/15/2018 showed LVEF of 50%. No significant valvular abnormality was seen. The interventricular septum and posterior wall thickness measurements were 0.94 and 0.7 cm respectively. E/A ratio was 0.7. There is no history of DVT or pulmonary embolus. Respiratory: He is a lifelong nonsmoker and has no known chronic lung disease. He has OTIS and wears BiPAP at bedtime. GI: He had cholecystectomy approximately 2016. He has GERD and NAFLD but denies other disorders of his liver or exocrine pancreas. He reports an unremarkable nuclear medicine gastric emptying study several years ago. : He has chronic kidney disease stage 4-5 and was on MWF hemodialysis from April - September 2018. He had enough renal recovery to discontinue MWF hemodialysis. He follows with a head operator in [place]. He denies BPH or other kidney bladder prostate disorders Neurologic: He has been diagnosed with Parkinson's disease but denies large distribution strokes or seizures. Endocrine: He was diagnosed with DM 2 in 1986. He has DPN, hypothyroidism, and hyperlipidemia. He has frequently been noncompliant taking prescribed Synthroid. Hematology/oncology: He denies blood disorders or cancers. He does have anemia probably secondary to chronic kidney disease. Anemia testing during August 2018 hospitalization showed no factor deficiency. Psychiatric: He has anxiety and depression but denies other mental health issues [place] skeletal: He has DJD, history of hyperuricemia, and vitamin D deficiency but no documented gout or osteoporosis. - Constitutional Vitals: Temp Pulse Resp BP Pulse Ox 97.6 F 70 18 153/76 97 11/28/18 05:32 11/28/18 05:32 11/28/18 05:32 11/28/18 05:32 11/28/18 05:32 Exam: Gen.: He is a well-developed well-nourished male sitting in a chair at bedside who appears in no acute distress HEENT: Head is atraumatic and normocephalic. Eyes: EOMI. There is no scleral icterus. Mouth: Mucosa is moist. Neck: Supple and nontender. There is no thyromegaly or adenopathy noted. Heart: Regular without murmurs gallops or ectopics Lungs: No wheezes or crackles are heard. Abdomen: Soft and nontender. No masses or guarding are noted. Exam is slightly limited because he is in the seated position. Extremities: There is no cyanosis edema or clubbing noted. Dorsalis pedis and posterior tibial pulses are trace to 1+ palpable bilaterally. Neurologic: Mental status: He is talkative and a good historian. Cranial nerves: Smile is symmetric. Forehead wrinkles bilaterally. Tongue protrudes midline. EOMI. Motor: There is no pronator drift. Cerebellar: Finger to nose is intact bilaterally. Skin: Warm and dry
[2018-11-28] MEDS: Gabapentin 300 MG CAPSULE PO SCH (21:21)
[2018-11-28] MEDS: Fluticasone Propionate Nasal 50 MCG/SPRAY BOTTLE NS SCH (21:21)
[2018-11-29] MEDS: hydrALAZINE 25 MG TABLET PO SCH ×3 (01:49→17:13)
[2018-11-29] MEDS: Metoprolol XL (24 HR) Succ 50 MG TAB.ER.24H PO SCH (08:24)
[2018-11-29] MEDS: Vitamin B Complex/Vit C/Vit E 1 EACH TABLET PO SCH (08:24)
[2018-11-29] MEDS: Carbidopa/Levodopa 25/100 TABLET PO SCH ×4 (08:24→21:04)
[2018-11-29] MEDS: Sucralfate 1 GM TABLET PO SCH ×4 (08:24→21:04)
[2018-11-29] MEDS: amLODIPine 5 MG TABLET PO SCH (08:25)
[2018-11-29] MEDS: Isosorbide MONOnitrate (24 HR) 60 MG TAB.ER.24H PO SCH (08:25)
[2018-11-29] MEDS: Aspirin Enteric Coated 81 MG Tablet PO SCH (08:25)
[2018-11-29] MEDS: Cholecalciferol (D-3) 1,000 UNIT (25MCG) TABLET PO SCH (08:25)
[2018-11-29] MEDS: Magnesium Oxide 400 MG TABLET PO SCH (08:25)
[2018-11-29] MEDS: Insulin LISPRO 300 UNITS/3 ML VIAL SQ SCH ×4 (08:26→21:04)
[2018-11-29] MEDS: Insulin DETEMIR 100 UNIT/ML X5UNITS SQ SCH (09:05)
[2018-11-29] MEDS: Ipratropium Neb 0.5 MG NEBULIZER AER SCH (10:56)
--- NOTE | 2018-11-29 12:08 | Internal Med Progress Note ---
Date of Encounter: 11/29/18 Time of Encounter: 12:00 - Assessment and plan (1) Gastroenteritis Current Visit: No Status: Acute Assessment and plan: November 29. Asymptomatic. Continue Marinol and Prilosec. (2) Hypertension Current Visit: No Status: Chronic Assessment and plan: November 29. Continue hydralazine, amlodipine, and Toprol Qualifiers: Hypertension type: essential hypertension Qualified Code(s): I10 - Essential (primary) hypertension (3) Diabetes Current Visit: No Status: Chronic Assessment and plan: November 29. Hemoglobin A1c was 9.7% on 09/14/2018. Continue basal insulin and Accu-Cheks with SSI. Qualifiers: Diabetes mellitus type: type 2 Diabetes mellitus assistant terminal manager insulin use: with assistant terminal manager use Diabetes mellitus complication status: with kidney complications Diabetes mellitus complication detail: with chronic kidney disease Chronic kidney disease stage: stage 4 (severe) Qualified Code(s): E11.22 - Type 2 diabetes mellitus with diabetic chronic kidney disease; N18.4 - Chronic kidney disease, stage 4 (severe); Z79.4 - superintendent marine oil terminal (current) use of insulin (4) Hypothyroidism Current Visit: No Status: Chronic Assessment and plan: November 29. TSH was 105.440 on 11/24/2018. Continue present dose Synthroid 300 micrograms daily. Qualifiers: Hypothyroidism type: unspecified Qualified Code(s): E03.9 - Hypothyroidism, unspecified (5) Anemia Current Visit: No Status: Chronic Assessment and plan: November 29. Anemia testing 09/01/2018 showed no factor deficiency. Qualifiers: Anemia type: due to chronic kidney disease Chronic kidney disease stage: on chronic dialysis Qualified Code(s): N18.6 - End stage renal disease; D63.1 - Anemia in chronic kidney disease; Z99.2 - Dependence on renal dialysis (6) DVT prophylaxis Current Visit: No Status: Acute Assessment and plan: November 29. Subcutaneous heparin has been ordered. (7) CKD (chronic kidney disease) stage 4, GFR 15-29 ml/min Current Visit: No Status: Chronic Assessment and plan: November 29. Monitor renal indices. - Subjective Interval history: November 29. He has no new complaints and feels well. He denies nausea vomiting or diarrhea. - Constitutional Vitals: Temp Pulse Resp BP Pulse Ox 98.8 F 79 16 151/90 97 11/29/18 07:07 11/29/18 08:31 11/29/18 07:07 11/29/18 08:31 11/29/18 07:07 Exam: He is sitting in a chair at bedside eating lunch. He appears in no acute distress. His affect is bright and cheerful. I reviewed his medications and lab results. Consult Discharge Plan - Plan Referrals: Sangita Macias DO [Primary Care Provider] - 1 week
[2018-11-29] MEDS: *HR* Heparin 5,000 UNIT/ML VIAL SQ SCH (17:32)
[2018-11-29] MEDS: Gabapentin 300 MG CAPSULE PO SCH (21:04)
[2018-11-29] MEDS: Fluticasone Propionate Nasal 50 MCG/SPRAY BOTTLE NS SCH (21:04)
[2018-11-30] MEDS: hydrALAZINE 25 MG TABLET PO SCH ×4 (01:08→23:45)
[2018-11-30] MEDS: *HR* Heparin 5,000 UNIT/ML VIAL SQ SCH ×2 (06:31→17:39)
[2018-11-30] MEDS: Sucralfate 1 GM TABLET PO SCH ×4 (06:31→20:30)
[2018-11-30] MEDS: Insulin LISPRO 300 UNITS/3 ML VIAL SQ SCH ×4 (08:56→20:30)
[2018-11-30] MEDS: Carbidopa/Levodopa 25/100 TABLET PO SCH ×4 (08:57→20:30)
[2018-11-30] MEDS: Cholecalciferol (D-3) 1,000 UNIT (25MCG) TABLET PO SCH (08:57)
[2018-11-30] MEDS: Metoprolol XL (24 HR) Succ 50 MG TAB.ER.24H PO SCH (08:57)
[2018-11-30] MEDS: Vitamin B Complex/Vit C/Vit E 1 EACH TABLET PO SCH (08:57)
[2018-11-30] MEDS: amLODIPine 5 MG TABLET PO SCH (08:58)
[2018-11-30] MEDS: Aspirin Enteric Coated 81 MG Tablet PO SCH (08:58)
[2018-11-30] MEDS: Magnesium Oxide 400 MG TABLET PO SCH (08:58)
[2018-11-30] MEDS: Isosorbide MONOnitrate (24 HR) 60 MG TAB.ER.24H PO SCH (08:58)
[2018-11-30] MEDS: Insulin DETEMIR 100 UNIT/ML X5UNITS SQ SCH (09:05)
[2018-11-30] MEDS: Gabapentin 300 MG CAPSULE PO SCH (20:30)
[2018-11-30] MEDS: Fluticasone Propionate Nasal 50 MCG/SPRAY BOTTLE NS SCH (20:34)
[2018-12-01] MEDS: *HR* Heparin 5,000 UNIT/ML VIAL SQ SCH (05:52)
[2018-12-01 07:38] VITALS: BP 160/91
[2018-12-01] MEDS: Metoprolol XL (24 HR) Succ 50 MG TAB.ER.24H PO SCH (08:42)
[2018-12-01] MEDS: Magnesium Oxide 400 MG TABLET PO SCH (08:42)
[2018-12-01] MEDS: Carbidopa/Levodopa 25/100 TABLET PO SCH ×3 (08:42→16:24)
[2018-12-01] MEDS: Isosorbide MONOnitrate (24 HR) 60 MG TAB.ER.24H PO SCH (08:44)
[2018-12-01] MEDS: Sucralfate 1 GM TABLET PO SCH ×3 (08:44→16:24)
[2018-12-01] MEDS: hydrALAZINE 25 MG TABLET PO SCH ×2 (08:44→16:23)
[2018-12-01] MEDS: Cholecalciferol (D-3) 1,000 UNIT (25MCG) TABLET PO SCH (08:44)
[2018-12-01] MEDS: amLODIPine 5 MG TABLET PO SCH (08:44)
[2018-12-01] MEDS: Vitamin B Complex/Vit C/Vit E 1 EACH TABLET PO SCH (08:44)
[2018-12-01] MEDS: Aspirin Enteric Coated 81 MG Tablet PO SCH (08:44)
[2018-12-01] MEDS: Insulin LISPRO 300 UNITS/3 ML VIAL SQ SCH ×3 (08:45→16:24)
[2018-12-01] MEDS: Insulin DETEMIR 100 UNIT/ML X5UNITS SQ SCH (09:05)
--- NOTE | 2018-12-01 15:46 | Discharge Summary ---
Date of Encounter: 12/01/18 Time of Encounter: 15:30 - Discharge Diagnosis (1) Gastroenteritis Priority: Primary Status: Resolved (2) Hypertension Priority: Secondary Status: Chronic Qualifiers: Hypertension type: essential hypertension Qualified Code(s): I10 - Essential (primary) hypertension (3) Diabetes Priority: Secondary Status: Chronic Qualifiers: Diabetes mellitus type: type 2 Diabetes mellitus intermediate insulin use: with ad terminal makeup operator use Diabetes mellitus complication status: with kidney complications Diabetes mellitus complication detail: with chronic kidney disease Chronic kidney disease stage: stage 4 (severe) Qualified Code(s): E11.22 - Type 2 diabetes mellitus with diabetic chronic kidney disease; N18.4 - Chronic kidney disease, stage 4 (severe); Z79.4 - buttermaker continuous churn (current) use of insulin (4) Hypothyroidism Priority: Secondary Status: Chronic Qualifiers: Hypothyroidism type: unspecified Qualified Code(s): E03.9 - Hypothyroidism, unspecified (5) Anemia Priority: Secondary Status: Chronic Qualifiers: Anemia type: due to chronic kidney disease Chronic kidney disease stage: on chronic dialysis Qualified Code(s): N18.6 - End stage renal disease; D63.1 - Anemia in chronic kidney disease; Z99.2 - Dependence on renal dialysis (6) DVT prophylaxis Priority: Secondary Status: Acute (7) CKD (chronic kidney disease) stage 4, GFR 15-29 ml/min Priority: Secondary Status: Chronic Hospital course: Mr. Hdz is a 58 year old male who was discharged to [facility] swing bed following hospitalization at [facility] November 21-November 27 for significant vomiting and diarrhea onset 3 days prior to admission. [facility] discharge summary reports EGD November 23 showed chronic gastritis. Medications were adjusted and he will follow up with GI as outpatient. He had PT/OT evaluation and it was recommended he continue with therapy in swing bed. I saw him on November 28 and performed the swing bed history and physical. He had no significant nausea vomiting or diarrhea during his swing bed stay. He had physical therapy and occupational therapy assessments with ongoing intervention. He made significant progress in therapy. On December 01 he wished to be discharged home. He will follow with his PCP Sangita Macias D.O. within 1 week. - Time Spent with Patient Total time spent providing and/or coordinating discharge services: - Discharge Medications Prescriptions: Continued Montelukast [Singulair] 10 mg PO DAILY Cholecalciferol (D-3) [Vitamin D] 2,000 unit PO DAILY Nitroglycerin [Nitrostat] 0.4 mg SL Q5M PRN PRN Reason: Chest Pain Omeprazole [PriLOSEC] 20 mg PO DAILY PRN PRN Reason: GERD Clopidogrel [Plavix] 75 mg PO DAILY #30 tablet Polyethylene Glycol 3350 [MiraLAX Powder Bulk 17.9 Oz] 17 gm PO DAILY PRN PRN Reason: Constipation Lidocaine/Prilocaine [Emla] 1 appl TP AD Folic Acid/Vit B Complex and C [Dialyvite Tablet] 1 tab PO DAILY Magnesium Oxide [Mag-Ox] 400 mg PO DAILY Rosuvastatin [Crestor] 40 mg PO DAILY Aspirin [Adult Aspirin Regimen] 81 mg PO DAILY Ferrous Sulfate 325 mg PO DAILY Insulin LISPRO [Humalog Kwikpen U-100] 0 unit SQ TIDWM Isosorbide MONOnitrate [Isosorbide Mononitrate ER] 60 mg PO DAILY Metoprolol Succinate [Toprol Xl] 50 mg PO DAILY Insulin Degludec [Tresiba Flextouch U-100] 25 unit SQ DAILY Ipratropium [place] 2 spray NS BID Promethazine [Phenergan] 25 mg PO Q6HR PRN PRN Reason: NAUSEA/VOMITING Dronabinol [Marinol] 2.5 mg PO BIDLS 15 Days #30 capsule amLODIPine [Norvasc] 5 mg PO DAILY tablet hydrALAZINE [HydrALAZINE] 50 mg PO Q8HR #0 tablet Sertraline [Zoloft] 100 mg PO DAILY Fluticasone Propionate Nasal [Flonase] 1 spray NS HS Carbidopa/Levodopa 25/100 [Sinemet 25/100] 1 tab PO QID Gabapentin [Neurontin] 300 mg PO HS 30 Days #30 capsule Levothyroxine Sodium [Synthroid] 300 mcg PO DAILY #30 tablet Sucralfate [Carafate] 1 gm PO QIDAC #120 tablet Home Medications: Carbidopa/Levodopa 25/100 [Sinemet 25/100] 1 tab PO QID 09/20/15 [History] Fluticasone Propionate Nasal [Flonase] 1 spray NS HS 09/20/15 [History] Sertraline [Zoloft] 100 mg PO DAILY 09/20/15 [History] Montelukast [Singulair] 10 mg PO DAILY 02/02/17 [History] Cholecalciferol (D-3) [Vitamin D] 2,000 unit PO DAILY 11/24/17 [History] Nitroglycerin [Nitrostat] 0.4 mg SL Q5M PRN 11/24/17 [History] Omeprazole [PriLOSEC] 20 mg PO DAILY PRN 06/06/18 [History] Clopidogrel [Plavix] 75 mg PO DAILY #30 tablet 06/08/18 [Rx] Folic Acid/Vit B Complex and C [Dialyvite Tablet] 1 tab PO DAILY 08/18/18 [History] Lidocaine/Prilocaine [Emla] 1 appl TP AD 08/18/18 [History] Magnesium Oxide [Mag-Ox] 400 mg PO DAILY 08/18/18 [History] Polyethylene Glycol 3350 [MiraLAX Powder Bulk 17.9 Oz] 17 gm PO DAILY PRN 08/18/18 [History] Rosuvastatin [Crestor] 40 mg PO DAILY 09/14/18 [History] Aspirin [Adult Aspirin Regimen] 81 mg PO DAILY 09/22/18 [History] Ferrous Sulfate 325 mg PO DAILY 11/23/18 [History] Insulin Degludec [Tresiba Flextouch U-100] 25 unit SQ DAILY 11/23/18 [History] Insulin LISPRO [Humalog Kwikpen U-100] 0 unit SQ TIDWM 11/23/18 [History] Ipratropium [place] 2 spray NS BID 11/23/18 [History] Isosorbide MONOnitrate [Isosorbide Mononitrate ER] 60 mg PO DAILY 11/23/18 [History] Metoprolol Succinate [Toprol Xl] 50 mg PO DAILY 11/23/18 [History] Promethazine [Phenergan] 25 mg PO Q6HR PRN 11/23/18 [History] Dronabinol [Marinol] 2.5 mg PO BIDLS 15 Days #30 capsule 11/27/18 [Rx] amLODIPine [Norvasc] 5 mg PO DAILY tablet 11/27/18 [Rx] hydrALAZINE [HydrALAZINE] 50 mg PO Q8HR #0 tablet 11/27/18 [Rx] Gabapentin [Neurontin] 300 mg PO HS 30 Days #30 capsule 12/01/18 [Rx] Levothyroxine Sodium [Synthroid] 300 mcg PO DAILY #30 tablet 12/01/18 [Rx] Sucralfate [Carafate] 1 gm PO QIDAC #120 tablet 12/01/18 [Rx] Allergies/Adverse Reactions: Allergy/AdvReac Type Severity Reaction Status Date / Time codeine Allergy Rash Verified 11/23/18 11:35 oxycodone [From Percocet] Allergy Rash Verified 11/23/18 11:35 Date of admission: 11/27/18 15:47 Primary care physician: Sangita Macias DO Consults: 11/28/18 12:13 Consult to Occupational Therapy [CONS] Routine Comment: Evaluate, develop and implement POC Reason for Consult: Weakness Does patient have active BEDREST order?: No Is patient medically & hemodynamically stable?: Yes Patient assessed for mobility or mobilized this visit?: Yes Consult to Physical Therapy [CONS] Routine Comment: Evaluate, develop and implement POC Reason for Consult: Weakness Does patient have active BEDREST order?: No Is patient medically & hemodynamically stable?: Yes Patient assessed for mobility or mobilized this visit?: Yes - Constitutional Vitals: Temp Pulse Resp BP Pulse Ox 97.8 F 79 17 160/91 98 12/01/18 07:34 12/01/18 07:34 12/01/18 07:34 12/01/18 07:34 12/01/18 07:34 - Patient Status Disposition: Home, Self-Care - Discharge Instructions Follow Up With: Sangita Macias DO [Primary Care Provider] - 1 week - Diet and Activity Activity: as per physical therapy Diet: diabetic diet
--- NOTE | 2018-12-01 15:53 | Physician Discharge Referral ---
Home Health/Hosp Referral Info Transfer to: Home Health Attending Provider: Saravanan Provider in Charge Post Discharge: PCP (Sangita Macias DO) - Diagnosis (1) Gastroenteritis Priority: Primary Status: Resolved (2) Hypertension Priority: Secondary Status: Chronic (3) Diabetes Priority: Secondary Status: Chronic (4) Hypothyroidism Priority: Secondary Status: Chronic (5) Anemia Priority: Secondary Status: Chronic (6) DVT prophylaxis Priority: Secondary Status: Acute (7) CKD (chronic kidney disease) stage 4, GFR 15-29 ml/min Priority: Secondary Status: Chronic - Respiratory Orders Other (Wear BiPAP at bedtime as previously ordered.) Smoking Cessation: Smoking cessation has been advised. For more information, call the [place] Tobacco Quit Line at 6-986-FYQC-NOW. - Diet/Nutrition Diet/Nutrition Orders: No Concentrated Sweets - Activity Activity Orders: Walker - Services Needed Following services are medically necessary services: Nursing, Home Health Aide, Physical Therapy, Occupational Therapy - Transfer Medications Prescriptions: Sucralfate [Carafate] 1 gm PO QIDAC #120 tablet Gabapentin [Neurontin] 300 mg PO HS 30 Days #30 capsule Levothyroxine Sodium [Synthroid] 300 mcg PO DAILY #30 tablet Home Medications: Carbidopa/Levodopa 25/100 [Sinemet 25/100] 1 tab PO QID 09/20/15 [History] Fluticasone Propionate Nasal [Flonase] 1 spray NS HS 09/20/15 [History] Sertraline [Zoloft] 100 mg PO DAILY 09/20/15 [History] Montelukast [Singulair] 10 mg PO DAILY 02/02/17 [History] Cholecalciferol (D-3) [Vitamin D] 2,000 unit PO DAILY 11/24/17 [History] Nitroglycerin [Nitrostat] 0.4 mg SL Q5M PRN 11/24/17 [History] Omeprazole [PriLOSEC] 20 mg PO DAILY PRN 06/06/18 [History] Clopidogrel [Plavix] 75 mg PO DAILY #30 tablet 06/08/18 [Rx] Folic Acid/Vit B Complex and C [Dialyvite Tablet] 1 tab PO DAILY 08/18/18 [History] Lidocaine/Prilocaine [Emla] 1 appl TP AD 08/18/18 [History] Magnesium Oxide [Mag-Ox] 400 mg PO DAILY 08/18/18 [History] Polyethylene Glycol 3350 [MiraLAX Powder Bulk 17.9 Oz] 17 gm PO DAILY PRN 08/18/18 [History] Rosuvastatin [Crestor] 40 mg PO DAILY 09/14/18 [History] Aspirin [Adult Aspirin Regimen] 81 mg PO DAILY 09/22/18 [History] Ferrous Sulfate 325 mg PO DAILY 11/23/18 [History] Insulin Degludec [Tresiba Flextouch U-100] 25 unit SQ DAILY 11/23/18 [History] Insulin LISPRO [Humalog Kwikpen U-100] 0 unit SQ TIDWM 11/23/18 [History] Ipratropium [place] 2 spray NS BID 11/23/18 [History] Isosorbide MONOnitrate [Isosorbide Mononitrate ER] 60 mg PO DAILY 11/23/18 [History] Metoprolol Succinate [Toprol Xl] 50 mg PO DAILY 11/23/18 [History] Promethazine [Phenergan] 25 mg PO Q6HR PRN 11/23/18 [History] Dronabinol [Marinol] 2.5 mg PO BIDLS 15 Days #30 capsule 11/27/18 [Rx] amLODIPine [Norvasc] 5 mg PO DAILY tablet 11/27/18 [Rx] hydrALAZINE [HydrALAZINE] 50 mg PO Q8HR #0 tablet 11/27/18 [Rx] Gabapentin [Neurontin] 300 mg PO HS 30 Days #30 capsule 12/01/18 [Rx] Levothyroxine Sodium [Synthroid] 300 mcg PO DAILY #30 tablet 12/01/18 [Rx] Sucralfate [Carafate] 1 gm PO QIDAC #120 tablet 12/01/18 [Rx] Allergies/Adverse Reactions: Allergy/AdvReac Type Severity Reaction Status Date / Time codeine Allergy Rash Verified 11/23/18 11:35 oxycodone [From Percocet] Allergy Rash Verified 11/23/18 11:35 Certification: Further, I certify that my clinical findings support that this patient is homebound (i.e. absences from home require considerable and taxing effort and are for medical reasons or jainism services or infrequently or short duration when for other reasons) because: Homebound Reason: Leaving home requires considerable and taxing effort due to condition (Impaired mobility) Attestation: My signature below is to certify that this patient is under my care and that I, or nurse practitioner, or a physician's assistant sales manager working with me, has a [id number] encounter with this patient.
== END 2018-12-01 17:18 | disposition home or self-care (01) | DRG 392 ==
LOC: INPPIK 15:47
PROVIDERS: ADMIT Internal Medicine; ATTEND Internal Medicine

== ENCOUNTER 2019-03-11 08:50 | Inpatient (IN) ==
[2019-03-11] MEDS ORDERED: 0.9 % Sodium Chloride 1,000 ML IVC ONE (09:13)
[2019-03-11] MEDS ORDERED: Pantoprazole 40 MG VIAL IVP ONE (09:13)
[2019-03-11] MEDS ORDERED: Ondansetron 4 MG/2 ML VIAL IVP ONE ×3 (09:13→10:57)
[2019-03-11 09:45] LABS: Basophils % 0.3 %; Eosinophils # 0.2 K/mcL (0.0-0.6); Eosinophils % 2.2 %; Hematocrit 42.9 % (37.5-50.1); Hemoglobin 13.8 g/dL (12.9-16.9); Immature Granulocytes % 0.4 % (0-4); Lymphocytes # 1.1 K/mcL (0.6-4.6); Lymphocytes % 11.7 %; Mean Corpuscular HGB Conc 32.2 g/dL (31.6-35.5); Mean Corpuscular Hemoglobin 27.8 pg (28.0-33.3); Mean Corpuscular Volume 86.5 fL (83.0-100.0); Mean Platelet Volume 9.7 fL (9.4-12.4); Monocytes # 0.5 K/mcL (0.0-1.3); Monocytes % 5.6 %; Neutrophils # 7.3 K/mcL (1.6-8.9); Platelet Count 305 K/mcL (140-400); Red Blood Count 4.96 M/mcL (4.19-5.50); Red Cell Distribution Width 15.5 % (11.5-14.5); Segmented Neutrophils % 79.8 %; White Blood Count 9.2 K/mcL (4.3-11.1)
[2019-03-11 09:53] LABS: VBG HCO3 22 mEq/L (21-27); VBG PCO2 39 mmHg (41-51); VBG PH 7.36 pH Units (7.32-7.42); VBG PO2 42 mmHg (25-50)
[2019-03-11] MEDS ORDERED: Azithromycin 500 MG in 0.9 % Sodium Chloride 250 ML IVPB ONE (09:54)
[2019-03-11 10:05] LABS: Troponin I 0.04 ng/mL (< 0.04)
[2019-03-11 10:05] LABS: VBG Chloride 113 mEq/L (98-107)
[2019-03-11 10:06] LABS: VBG Glucose 183 mg/dl (65-95)
[2019-03-11 10:48] LABS: Alanine Aminotransferase 24 Units/L (7-52); Albumin 3.6 g/dL (3.5-5.7); Alkaline Phosphatase 143 Units/L (34-104); Aspartate Amino Transferase 46 Units/L (13-39); BUN/Creatinine Ratio 13 (6-26); Bilirubin,Direct 0.1 mg/dL (0.0-0.2); Bilirubin,Indirect 0.4 mg/dL (0.0-1.0); Bilirubin,Total 0.5 mg/dL (0.3-1.0); Blood Urea Nitrogen 54 mg/dL (8-23); Calcium 9.9 mg/dL (8.6-10.3); Carbon Dioxide 22 mEq/L (23-29); Chloride 104 mEq/L (98-107); Globulin 3.7 g/dL (2.4-3.5); Glucose 181 mg/dL (70-105); Lipase < 3 Units/L (11-82); Osmolality,Calculated 311 (280-300); Potassium 4.6 mEq/L (3.5-5.1); Sodium 141 mEq/L (136-145); Total Protein 7.3 g/dL (6.4-8.9); eGFR For African Americans 17 (> 60); eGFR For Non-African Americans 14 (> 60)
[2019-03-11] MEDS ORDERED: Naloxone 0.4 MG/ML INJ IVP PRN (10:57)
[2019-03-11] MEDS ORDERED: 0.9 % Sodium Chloride 1,000 ML IVC SCH (10:57)
[2019-03-11] MEDS ORDERED: Ondansetron 4 MG/2 ML VIAL IVP PRN (10:57)
[2019-03-11] MEDS ORDERED: Acetaminophen 325 MG TABLET PO PRN (10:57)
[2019-03-11] MEDS: hydrALAZINE 25 MG TABLET PO SCH ×2 (16:52→23:58)
[2019-03-11] MEDS: Carbidopa/Levodopa 25/100 TABLET PO SCH ×2 (16:52→21:34)
[2019-03-11] MEDS: Sucralfate 1 GM TABLET PO SCH ×2 (16:52→21:34)
[2019-03-11] MEDS: *HR* Promethazine 25 MG/ML VIAL IVP PRN ×2 (19:03→23:21)
[2019-03-11] MEDS: Lactobacillus 1 EACH CAP.SPRINK PO SCH (21:34)
[2019-03-11] MEDS: Gabapentin 300 MG CAPSULE PO SCH (21:34)
[2019-03-12 00:02] LABS: Bilirubin,Urine Negative (Negative); Blood,Urine Trace-lysed (Negative); Clarity,Urine Clear (Clear); Glucose,Urine (UA) 500 mg/dL (Normal); Ketones,Urine Negative (Negative); Leukocyte Esterase,Urine Negative (Negative); Nitrite,Urine Negative (Negative); Protein,Urine >=300 mg/dL (Neg-Trace); Urobilinogen,Urine Normal (Normal)
[2019-03-12 00:04] LABS: Color,Urine Light Yellow (Yellow)
[2019-03-12 00:11] LABS: Hyaline Casts,Urine Few per lpf (None-Few); Squamous Epithelial Cell,Urine Few per lpf (None-Few)
[2019-03-12 00:12] LABS: Bacteria,Urine Few per hpf (None-Few); RBC,Urine 0-3 per hpf (0-3); WBC,Urine 0-3 per hpf (0-3)
[2019-03-12 00:14] LABS: Granular Casts,Urine Few per lpf (None Seen)
[2019-03-12 07:22] LABS: Basophils % 0.6 %; Eosinophils # 0.5 K/mcL (0.0-0.6); Eosinophils % 7.5 %; Hematocrit 35.5 % (37.5-50.1); Hemoglobin 11.2 g/dL (12.9-16.9); Immature Granulocytes % 0.3 % (0-4); Lymphocytes # 1.6 K/mcL (0.6-4.6); Lymphocytes % 25.3 %; Mean Corpuscular HGB Conc 31.5 g/dL (31.6-35.5); Mean Corpuscular Hemoglobin 27.7 pg (28.0-33.3); Mean Corpuscular Volume 87.7 fL (83.0-100.0); Monocytes # 0.6 K/mcL (0.0-1.3); Monocytes % 9.1 %; Neutrophils # 3.6 K/mcL (1.6-8.9); Platelet Count 240 K/mcL (140-400); Red Blood Count 4.05 M/mcL (4.19-5.50); Red Cell Distribution Width 15.5 % (11.5-14.5); Segmented Neutrophils % 57.2 %; White Blood Count 6.3 K/mcL (4.3-11.1)
[2019-03-12 07:39] LABS: Calcium 8.3 mg/dL (8.6-10.3); Magnesium 1.6 mg/dL (1.6-2.6); Phosphorous 4.2 mg/dL (2.7-4.5); Potassium 4.5 mEq/L (3.5-5.1)
[2019-03-12] MEDS: amLODIPine 5 MG TABLET PO SCH (07:51)
[2019-03-12] MEDS: Metoprolol XL (24 HR) Succ 50 MG TAB.ER.24H PO SCH (07:51)
[2019-03-12] MEDS: hydrALAZINE 25 MG TABLET PO SCH ×2 (07:51→17:12)
[2019-03-12] MEDS: Cholecalciferol (D-3) 1,000 UNIT (25MCG) TABLET PO SCH (07:52)
[2019-03-12] MEDS: Lactobacillus 1 EACH CAP.SPRINK PO SCH ×2 (07:52→19:43)
[2019-03-12] MEDS: Sucralfate 1 GM TABLET PO SCH ×4 (07:52→19:43)
[2019-03-12] MEDS: cefTRIAXone 1,000 MG in Water for inj. (sterile) 10 ML IVPB SCH (07:52)
[2019-03-12] MEDS: Isosorbide MONOnitrate (24 HR) 60 MG TAB.ER.24H PO SCH (07:52)
[2019-03-12] MEDS: Carbidopa/Levodopa 25/100 TABLET PO SCH ×4 (07:52→19:43)
[2019-03-12] MEDS: Aspirin 81 MG TAB.CHEW PO SCH (07:53)
[2019-03-12] MEDS: Fluticasone Propionate Nasal 50 MCG/SPRAY BOTTLE NS SCH (08:00)
[2019-03-12 08:22] LABS: Thyroid Stimulating Hormone 180.78 mcIU/mL (0.340-5.600)
[2019-03-12] MEDS ORDERED: *HR* Dextrose 50 % in Water (Vial) 50 ML VIAL IVP PRN (09:17)
[2019-03-12] MEDS ORDERED: Dextrose Gel 15 GM/37.5 ML TUBE PO PRN ×2 (09:17)
[2019-03-12] MEDS ORDERED: D5% in Water 1,000 ML IVC PRN (09:17)
[2019-03-12] MEDS: Azithromycin 500 MG in 0.9 % Sodium Chloride 250 ML IVPB SCH (09:35)
[2019-03-12] MEDS: Insulin LISPRO 300 UNITS/3 ML VIAL SQ SCH ×3 (09:38→17:13)
[2019-03-12 16:59] LABS: Estimated Average Glucose 232 mg/dl
[2019-03-12] MEDS: Ondansetron 4 MG/2 ML VIAL IVP PRN (19:42)
[2019-03-12] MEDS: Insulin DETEMIR 100 UNIT/ML X5UNITS SQ SCH (19:43)
[2019-03-12] MEDS: Gabapentin 300 MG CAPSULE PO SCH (19:44)
[2019-03-12] MEDS ORDERED: Insulin LISPRO 300 UNITS/3 ML VIAL SQ SCH (21:00)
[2019-03-13] MEDS: hydrALAZINE 25 MG TABLET PO SCH ×2 (00:27→08:07)
[2019-03-13] MEDS: Ondansetron 4 MG/2 ML VIAL IVP PRN (05:48)
[2019-03-13] MEDS ORDERED: *HR* Enoxaparin 30 MG/0.3 ML SYRINGE SQ SCH (06:00)
[2019-03-13] MEDS: Cholecalciferol (D-3) 1,000 UNIT (25MCG) TABLET PO SCH (08:07)
[2019-03-13] MEDS: Metoprolol XL (24 HR) Succ 50 MG TAB.ER.24H PO SCH (08:07)
[2019-03-13] MEDS: Isosorbide MONOnitrate (24 HR) 60 MG TAB.ER.24H PO SCH (08:07)
[2019-03-13] MEDS: Aspirin 81 MG TAB.CHEW PO SCH (08:07)
[2019-03-13] MEDS: amLODIPine 5 MG TABLET PO SCH (08:08)
[2019-03-13] MEDS: Lactobacillus 1 EACH CAP.SPRINK PO SCH (08:08)
[2019-03-13] MEDS: Carbidopa/Levodopa 25/100 TABLET PO SCH ×2 (08:08→11:56)
[2019-03-13] MEDS: Sucralfate 1 GM TABLET PO SCH ×2 (08:08→11:56)
[2019-03-13] MEDS: Fluticasone Propionate Nasal 50 MCG/SPRAY BOTTLE NS SCH (08:12)
[2019-03-13] MEDS: cefTRIAXone 1,000 MG in Water for inj. (sterile) 10 ML IVPB SCH (08:14)
[2019-03-13] MEDS: Insulin LISPRO 300 UNITS/3 ML VIAL SQ SCH ×2 (08:19→11:56)
[2019-03-13] MEDS: Insulin DETEMIR 100 UNIT/ML X5UNITS SQ SCH (08:19)
[2019-03-13 08:46] LABS: % Iron Saturation 19 % (20-55); Iron 48 mcg/dL (65-175); Transferrin 178 mg/dL (203-362)
[2019-03-13 09:04] LABS: Ferritin 98 ng/mL (20-250)
[2019-03-13 09:10] LABS: Folate 12.9 ng/mL (3.0-16.0)
[2019-03-13] MEDS: Azithromycin 500 MG in 0.9 % Sodium Chloride 250 ML IVPB SCH (09:31)
[2019-03-13 11:06] VITALS: BP 119/66
== END 2019-03-13 13:10 | disposition home or self-care (01) | DRG 194 ==
LOC: INPPIK 08:50 → EMEROOPIK 08:50 → INPPIK 11:21
PROVIDERS: ADMIT Internal Medicine; ATTEND Internal Medicine

== ENCOUNTER 2020-10-07 21:37 | Inpatient (IN) ==
[2020-10-07] MEDS ORDERED: *HR* Dextrose 50 % in Water (Vial) 50 ML VIAL IVP PRN (21:38)
[2020-10-07] MEDS ORDERED: Dextrose Gel 15 GM/37.5 ML TUBE PO PRN ×2 (21:38)
[2020-10-07] MEDS ORDERED: D5% in Water 1,000 ML IVC PRN (21:38)
[2020-10-07] MEDS ORDERED: Nitroglycerin 0.4 MG TAB.SUBL SL PRN (22:03)
[2020-10-07] MEDS ORDERED: Ondansetron ODT 4 MG TAB.RAPDIS SL PRN (22:03)
[2020-10-07] MEDS ORDERED: Ergocalciferol (VIT D2) 50,000 UNIT (1.25MG) CAP PO SCH (22:15)
[2020-10-08] MEDS: Insulin LISPRO 300 UNITS/3 ML VIAL SUBQ SCH ×2 (07:36→11:50)
[2020-10-08] MEDS: Carbidopa/Levodopa 25/100 TABLET PO SCH ×2 (07:45→11:50)
[2020-10-08] MEDS: Calcium Acetate 667 MG CAPSULE PO SCH ×2 (07:46→14:53)
[2020-10-08] MEDS ORDERED: NON-FORMULARY MEDICATION 1 EACH EACH (Insulin Lispro [Humalog Kwikpen U-100] 100 UNIT/ML I SQ SCH (08:00)
[2020-10-08] MEDS ORDERED: Cholecalciferol (D-3) 1,000 UNIT (25MCG) TABLET PO SCH (09:00)
[2020-10-08] MEDS ORDERED: Fluticasone Propionate Nasal 50 MCG/SPRAY BOTTLE NS SCH (09:00)
[2020-10-08] MEDS ORDERED: Aspirin Enteric Coated 81 MG Tablet PO SCH (09:00)
[2020-10-08] MEDS ORDERED: Famotidine 20 MG TABLET PO SCH (09:00)
[2020-10-08] MEDS ORDERED: (Icosapent Ethyl [Vascepa] 1 GM Capsule) PO SCH (09:00)
[2020-10-08] MEDS ORDERED: Renal Vitamin 1 CAP CAPSULE PO SCH (09:00)
[2020-10-08] MEDS ORDERED: Sucralfate 1 GM TABLET PO SCH (09:00)
[2020-10-08] MEDS ORDERED: Metoprolol XL (24 HR) Succ 25 MG TAB.ER.24H PO SCH (09:00)
[2020-10-08] MEDS ORDERED: Albuterol 2.5 MG/3 ML NEBULIZER IH PRN (11:35)
[2020-10-08] MEDS ORDERED: Acetaminophen 325 MG TABLET PO PRN (11:37)
[2020-10-08] MEDS ORDERED: *HR* Heparin 5,000 UNIT/ML VIAL IVP PRN ×2 (13:03)
[2020-10-08] MEDS ORDERED: *HR* Heparin 5,000 UNIT/ML VIAL IVP ONE (13:03)
[2020-10-08] MEDS ORDERED: Nitroglycerin 0.4 MG TAB.SUBL SL PRN (13:04)
[2020-10-08] MEDS ORDERED: Heparin 25,000UNIT/250ML 1/2NS 25,000 UNIT/250 ML IV.SOLN IVC SCH (13:15)
[2020-10-08 13:45] LABS: Hematocrit 31.7 % (37.5-50.1); Hemoglobin 10.3 g/dL (12.9-16.9); Mean Corpuscular HGB Conc 32.5 g/dL (31.6-35.5); Mean Corpuscular Hemoglobin 29.5 pg (28.0-33.3); Mean Corpuscular Volume 90.8 fL (83.0-100.0); Mean Platelet Volume 10.1 fL (9.4-12.4); Platelet Count 244 K/mcL (140-400); Red Blood Count 3.49 M/mcL (4.19-5.50); Red Cell Distribution Width 13.9 % (11.5-14.5); White Blood Count 9.7 K/mcL (4.3-11.1)
[2020-10-08 13:58] LABS: Heparin anti-factor XA UFH < 0.04 IU/mL (0.30-0.70)
[2020-10-08 13:59] LABS: INR 0.9; Prothrombin Time 10.4 Seconds (9.4-12.1)
[2020-10-08 15:26] VITALS: BP 110/73
[2020-10-08] MEDS ORDERED: Loratadine 10 MG TABLET PO SCH (21:00)
[2020-10-08] MEDS ORDERED: (Ezetimibe [Zetia] 10 MG Tablet) PO SCH (21:00)
[2020-10-08] MEDS ORDERED: Gabapentin 300 MG CAPSULE PO SCH (21:00)
[2020-10-08] MEDS ORDERED: Insulin DETEMIR 100 UNIT/ML X5UNITS SUBQ SCH (21:00)
== END 2020-10-08 16:10 | disposition short-term general hospital (02) | DRG 280 ==
LOC: INPPIK 21:37
PROVIDERS: ADMIT Family Medicine; ATTEND Family Medicine